=== PATIENT | male | born 1955 | race Caucasian/White ===

== ENCOUNTER 2018-10-12 06:41 | Inpatient (IN) | payer OTHER, SELFPAY ==
[2018-09-29 14:34] VITALS: BP 150/98; PULSE 76; RESP 16; TEMP 36.8; O2SAT 94; BMI 31.5
--- NOTE | 2018-09-29 15:38 | SDCEKG_ITS ---
Test Reason : Blood Pressure : / mmHG Vent. Rate : 071 BPM Atrial Rate : 071 BPM P-R Int : 234 ms QRS Dur : 106 ms QT Int : 386 ms P-R-T Axes : 051 016 039 degrees QTc Int : 419 ms Sinus rhythm with 1st degree A-V block Low voltage QRS Borderline ECG Confirmed by ERIC DURANT ([id number]), newspaper editor managing DANII TA ([id number]) on 10/05/2018 2:34:55 PM Referred By: Willi Mojica Confirmed By:ERIC DURANT
[2018-09-29 15:42] LABS: Absolute Lymphocyte Count 1.48 X10^3/ul (0.83-4.51); Absolute Neutrophil Count 4.9 X10^3/uL (2.0-7.7); Basophil# 0.06 X10^3/uL; Basophil% 0.8 % (0-1); Eosinophil# 0.56 X10^3/uL; Eosinophils% 7.5 % (0-5); Hematocrit 45.5 % (40-54); Hemoglobin 15.3 g/dl (13.0-16.5); Lymphocyte # 1.48 X10^3/ul (4.0); Lymphocyte % 19.8 % (19-41); Mean Corp Hgb Conc 33.6 g/gl (32-36); Mean Corpuscular Volume 98.1 fL (80-94); Mean Platelet Vol. 10.3 fl (6.2-12.0); Monocyte% 6.7 % (0-10); Neutrophil # 4.87 X10^3/uL (2.7-7.7); Neutrophil % 64.9 % (47-70); POSITIVE COUNT NO; POSITIVE DIFFERENTIAL NO; POSITIVE MORPHOLOGY NO; Platelet Count 259 K/mm3 (150-450); RBC Distribution Width CV 13.1 % (11.6-14.6); RBC Distribution Width SD 47.1 fl (35.1-43.9); Red Blood Count 4.64 M/mm3 (4.6-6.2); White Blood Count 7.5 K/mm3 (4.4-11.0)
[2018-09-29 16:10] LABS: Anion Gap 4 (5-15); BUN 14 mg/dL (7-18); BUN/Creat Ratio 14.2 RATIO (10-20); Calcium,Total 8.8 mg/dL (8.5-10.1); Chloride 104 mmol/L (98-107); Creatinine, Serum 0.99 mg/dL (0.70-1.30); EST Glomerular Filtration Rate 81 mL/min (>60); Est Glom Filt Rate - Afr Amer 98 mL/min (>60); Estimated Creatinine Clearance 76.81 ml/min; Glucose 85 mg/dL (74-106); Potassium 4.5 mmol/L (3.5-5.1); Sodium Level 138 mmol/L (136-145)
--- NOTE | 2018-10-07 11:49 | CASEMGMT ---
Call placed to patient to discuss discharge needs after upcoming surgery. Patient plans to return home with assistance from . Patient does not have outpatient physical therapy set up yet and voices that transportation will be an issue due to 's work schedule. Patient does not have a walker, has a cane. Does not have a shower seat or toilet riser. Patient has a bedroom and bathroom on the 1st level of his home. There is 1 step from the garage into the house. Informed patient that RN-CM will follow up after surgery. Michelle Snow LPN Clinical Support
[2018-10-12] VITALS (8 sets, daily range): BP systolic 111–147; BP diastolic 71–99; PULSE 44–80; RESP 14–18; TEMP 35.7–36.9; O2SAT 91–98; BMI 31.5
--- NOTE | 2018-10-12 | KNEE_PTH ---
PATIENT: ABDIEL ANDREWS LOC: [facility] U#:[id number] AGE/SX: 63/M [place] [facility] [place]: Dr. Willi Mojica DO : 1955 BED: 1 DIS: 10/14/2018 SPEC #: [id number] RECD: 10/12/18 13:47 STATUS: JULIA RECm #: [id number] SAIGE: 10/12/18 00:[address]: Willi Mojica DEPT: SURGICAL PATHOLOGY RECD BY: Jadon Albarran ENTERED: 10/12/18 13:47 SP TYPE: TOTAL KNEE OTHR DR: [facility] Tissues: Knee, NOS Procedures: Decalcification bone/plaque Surgery Specimen Level IV HEADER OPERATION: Total knee replacement PRE-OP DIAGNOSIS: Osteoarthritis right knee TISSUE SUBMITTED: Bone and soft tissue MICROSCOPIC DIAGNOSIS Bone and soft tissue, right knee, total knee replacement/resection: Pieces of bone with degenerative osteoarthritic changes. SJ:basilio 10/16/18 MICROSCOPIC DESCRIPTION Slides are reviewed. GROSS DESCRIPTION Received is one container designated bone and soft tissue right knee. The specimen consists of multiple fragments of kuo-yellow bone measuring in aggregate 11 x 8 x 4 cm. No soft tissue is identified. A number of bony fragments contain articular surfaces consistent with tibial plateau and femoral condyle and displaying prominent osteophyte formation, eburnation and bone erosion. Inspector Circuitry Negative sections are submitted in one cassette after decalcification. / IRENE:basilio 10/12/18 TC:5 CPT: 46270, 43506
[2018-10-12] MEDS: oxyCODONE HCl Cr 10 MG Tablet PO (07:25)
[2018-10-12] MEDS: Celecoxib 200 MG Capsule 400 MG PO (07:25)
[2018-10-12] MEDS: Acetaminophen 500 MG Tablet 1000 MG PO ×3 (07:25→21:10)
[2018-10-12] MEDS: Lactated Ringers 1,000 ML 999 ML IV (07:53)
[2018-10-12] MEDS: Cefazolin 2 GM in 0.9% Normal Saline 100 ML IV (09:56)
--- NOTE | 2018-10-12 11:15 | OP.PN_ITS ---
Immediate Post-Op Note Date of Procedure: 10/12/18 Primary Surgeon/Physician: Willi Mojica public improvement inspector: Hiro Ornelas Pre-Operative Diagnosis: OA right knee Post-Operative Diagnosis: same Surgery/Procedure Performed:: Right TKR Description of Surgical Findings:: see op note Estimated Blood Loss: 50cc Specimen's removed: none Type of Anesthesia:: Spinal ASA Class: ASA2 Mod Systematic Disease
--- NOTE | 2018-10-12 11:15 | OP.PN_ITS ---
Immediate Post-Op Note Date of Procedure: 10/12/18 Primary Surgeon/Physician: Willi Mojica line o scribe operator: Hiro Ornelas Pre-Operative Diagnosis: OA right knee Post-Operative Diagnosis: same Surgery/Procedure Performed:: Right TKR Description of Surgical Findings:: see op note Estimated Blood Loss: 50cc Specimen's removed: none Type of Anesthesia:: Spinal ASA Class: ASA2 Mod Systematic Disease - Admit VTE Documentation VTE Present on Admission: No VTE Mechan Device Prophylaxis: SCD's, Thigh High SUE Hose VTE Pharm Prophylaxis ordered?: Yes
--- NOTE | 2018-10-12 11:15 | PCM.OP.BLANK ---
Operative Report Date of Procedure: 10/12/18 Primary Surgeon/Physician: Willi Mojica cafeteria attendant: Hiro Ornelas PA-C cafeteria attendant: Pre-Operative Diagnosis: OA right knee Post-Operative Diagnosis: same Surgery/Procedure Performed: Right TKR Estimated Blood Loss: 50cc Specimen's Removed: bone Type of Anesthesia: spinal ASA Class: 2 Implants: [Striker size 6 CR femur, size 6 tibia, 38 mm patella, 9 mm poly (all components cemented) ] Indications: Patient has severe end-stage osteoarthritis diagnosed via x-rays in the knee. They have failed all forms of conservative measures including activity modification, injections, anti-inflammatories, use of assistive device. The patient has pain that affects on a daily basis and prevents him from doing things that they enjoyed. They have elected to undergo the above procedure. The risks of the procedure were discussed at length and their questions were answered. Procedure Description: The patient was greeted in the preoperative area. The [right ] knee was then marked with a surgical marker. Patient was then taken to or Suite 1. They were administered a dose of antibiotics as well as tranexamic acid. Once adequate anesthesia was obtained and airway was secured to placed in supine position on the operating room table. A well-padded tourniquet was placed on the affected extremity. Leg was then prepped and draped in the usual sterile fashion from the knee down. Ioban was used on the skin. Surgical timeout was then performed and confirmed with all present. Six-inch Esmarch was used to examine the limb and tourniquet was then inflated to 250 mmHg. A longitudinal incision was then planned and carried out in the anterior aspect of the knee. The dissection was then carried the length of the incision the extensor mechanism was identified. Standard medial parapatellar arthrotomy was then performed revealing severe eburnation of bone and periarticular osteophytes. There is complete loss of cartilage especially in the medial compartment with varus alignment. Anterior fat pad was removed for visualization purposes and the anterior medial aspect of the tibia was skeletonized for exposure to the knee. The knee was then flexed the patella was inverted. Opening reamer was then used in the femur approximately 1 cm anterior to the attachment of the PCL. The intramedullary valgus wand was then placed in the femur set at 5? of valgus. The distal femoral cutting jig was then applied to the femur with anticipated resection of approximately 8 mm. This was then made with a oscillating saw. The sizing guide was then placed referencing off the posterior condyles and also reference off the epicondylar axis. This was measured and the appropriate size 4-in-1 cutting jig was then applied to the distal femur. Anterior posterior cuts were made followed by the anterior and posterior chamfer cuts. These bony pieces and fragments were removed and placed on the back table. Posterior retractor was then utilized and the tibia was subluxed anteriorly. Extramedullary tibial alignment jig was then applied to the tibia referencing off the medial one third of the tibial tubercle the anterior tibial spine the middle aspect of the tibiotalar joint. Also reference off patient's [place] slope. The tibial cutting jig was then pinned with anticipated resection of 2 mm off of the deficient medial tibial condyle. This cut was made with the oscillating saw. Once this was complete a laminar awning spreader was utilized in both medial lateral meniscus were removed and a posterior capsular osteophytes were also removed. Posterior capsule release was performed in the posterior capsule as well as the geniculate arteries are treated with the aqua Romelia. The tibia was incised and the appropriate sized tibial tray was then pinned. The femoral trial was then placed and the knee was trialed. Full flexion-extension were easily achieved. The knee seemed to balance quite nicely. Any remaining osteophytes were removed at this time. Once this was complete the patella was everted and the Nilam patella reaming device was then utilized the patella was then placed in the appropriate jig and reamer was then used to remove approximately 9 mm of the undersurface of the patella. A soft tissue remaining was in the way was removed and patella trial was then placed listed maintain excellent tracking using the no thumbs technique. The tibial tray at this point was punched to accommodate the fins of the final implant. At this point cement was mixed on the back table. The trial components were removed and the knee was copiously irrigated. Did use a cocktail of injection for postoperative pain control. The final components were then cemented in the standard fashion and excess cement was removed with cement removal tools and patellar clamp is placed in the patella. As the cement had cured in full extension tourniquet was deflated and hemostasis was perfect with Bovie cautery as well as the aqua Manus. Needle is once again trialed with different size polyethylenes to ensure the full range of motion was achieved as well as excellent balancing ligamentously was achieved. At this point the knee was copiously irrigated. Final implant was then inserted locking mechanism was engaged and confirmed to be locked. The arthrotomy was then closed with #1 Vicryl aggravate type fashion interrupted. Subcutaneous tissue was closed with 0 Vicryl and surgical leon were placed in the skin. A occlusive silver impregnated dressing was then applied followed by well-padded sterile dressing secured with an Giovanni wrap. The patient was taken to the PACU in stable condition. No complications known at this time. Postoperatively we will maintain standard total knee postoperative protocol. The use of the physician marketing administrative assistant was integral during this procedure. They assisted with positioning placement of the tourniquet retracting closure and placement of the dressing. The procedure would have been much more difficult without their expertise and assistance
--- NOTE | 2018-10-12 11:19 | OP.PCM_ITS ---
Operative Report Date of Procedure: 10/12/18 Primary Surgeon/Physician: Willi Mojica operations business partner: Hiro Ornelas PA-C operations business partner: Pre-Operative Diagnosis: OA right knee Post-Operative Diagnosis: same Surgery/Procedure Performed: Right TKR Estimated Blood Loss: 50cc Specimen's Removed: bone Type of Anesthesia: spinal ASA Class: 2 Implants: [Striker size 6 CR femur, size 6 tibia, 38 mm patella, 9 mm poly (all components cemented) ] Indications: Patient has severe end-stage osteoarthritis diagnosed via x-rays in the knee. They have failed all forms of conservative measures including activity modification, injections, anti-inflammatories, use of assistive device. The patient has pain that affects on a daily basis and prevents him from doing things that they enjoyed. They have elected to undergo the above procedure. The risks of the procedure were discussed at length and their questions were answered. Procedure Description: The patient was greeted in the preoperative area. The [right ] knee was then marked with a surgical marker. Patient was then taken to or Suite 1. They were administered a dose of antibiotics as well as tranexamic acid. Once adequate anesthesia was obtained and airway was secured to placed in supine position on the operating room table. A well-padded tourniquet was placed on the affected extremity. Leg was then prepped and draped in the usual sterile fashion from the knee down. Ioban was used on the skin. Surgical timeout was then performed and confirmed with all present. Six-inch Esmarch was used to examine the limb and tourniquet was then inflated to 250 mmHg. A longitudinal incision was then planned and carried out in the anterior aspect of the knee. The dissection was then carried the length of the incision the extensor mechanism was identified. Standard medial parapatellar arthrotomy was then performed revealing severe eburnation of bone and periarticular osteophytes. There is complete loss of cartilage especially in the medial compartment with varus alignment. Anterior fat pad was removed for visualization purposes and the anterior medial aspect of the tibia was skeletonized for exposure to the knee. The knee was then flexed the patella was inverted. Opening reamer was then used in the femur approximately 1 cm anterior to the attachment of the PCL. The intramedullary valgus wand was then placed in the femur set at 5? of valgus. The distal femoral cutting jig was then applied to the femur with anticipated resection of approximately 8 mm. This was then made with a oscillating saw. The sizing guide was then placed referencing off the posterior condyles and also reference off the epicondylar axis. This was measured and the appropriate size 4-in-1 cutting jig was then applied to the distal femur. Anterior posterior cuts were made followed by the anterior and posterior chamfer cuts. These bony pieces and fragments were removed and placed on the back table. Posterior retractor was then utilized and the tibia was subluxed anteriorly. Extramedullary tibial alignment jig was then applied to the tibia referencing off the medial one third of the tibial tubercle the anterior tibial spine the middle aspect of the tibiotalar joint. Also reference off patient's [place] slope. The tibial cutting jig was then pinned with anticipated resection of 2 mm off of the deficient medial tibial condyle. This cut was made with the oscillating saw. Once this was complete a laminar fire observer was utilized in both medial lateral meniscus were removed and a posterior capsular osteophytes were also removed. Posterior capsule release was performed in the posterior capsule as well as the geniculate arteries are treated with the aqua Romelia. The tibia was incised and the appropriate sized tibial tray was then pinned. The femoral trial was then placed and the knee was trialed. Full flexion-extension were easily achieved. The knee seemed to balance quite nicely. Any remaining osteophytes were removed at this time. O nce this was complete the patella was everted and the Nilam patella reaming device was then utilized the patella was then placed in the appropriate jig and reamer was then used to remove approximately 9 mm of the undersurface of the patella. A soft tissue remaining was in the way was removed and patella trial was then placed listed maintain excellent tracking using the no thumbs technique. The tibial tray at this point was punched to accommodate the fins of the final implant. At this point cement was mixed on the back table. The trial components were removed and the knee was copiously irrigated. Did use a cocktail of injection for postoperative pain control. The final components were then cemented in the standard fashion and excess cement was removed with cement removal tools and p atellar clamp is placed in the patella. As the cement had cured in full extension tourniquet was deflated and hemostasis was perfect with Bovie cautery as well as the aqua Manus. Needle is once again trialed with different size polyethylenes to ensure the full range of motion was achieved as well as excellent balancing ligamentously was achieved. At this point the knee was copiously irrigated. Final implant was then inserted locking mechanism was engaged and confirmed to be locked. The arthrotomy was then closed with #1 Vicryl aggravate type fashion interrupted. Subcutaneous tissue was closed with 0 Vicryl and surgical leon were placed in the skin. A occlusive silver impregnated dressing was then applied followed by well-padded sterile dressing secured with an Giovanni wrap. The patient was taken to the PACU in stable condition. No complications known at this time. Postoperatively we will maintain standard total knee postoperative protocol. The use of the physician perinatal breastfeeding assistant was integral during this procedure. They assisted with positioning placement of the tourniquet retracting closure and placement of the dressing. The procedure would have been much more difficult without their expertise and assistance
[2018-10-12 12:12] LABS: Hematocrit 41.2 % (40-54); Mean Corpuscular Volume 97.2 fL (80-94); Mean Platelet Vol. 10.1 fl (6.2-12.0); Platelet Count 212 K/mm3 (150-450); RBC Distribution Width SD 45.9 fl (35.1-43.9); Red Blood Count 4.24 M/mm3 (4.6-6.2); White Blood Count 5.8 K/mm3 (4.4-11.0)
[2018-10-12 12:13] LABS: Scan Indicated on CBC? Y/N NO
[2018-10-12] MEDS: Scopolamine 1mg/72hr Patch 1 PATCH TD (12:13)
[2018-10-12 12:25] LABS: Anion Gap 5 (5-15); BUN 14 mg/dL (7-18); BUN/Creat Ratio 13.6 RATIO (10-20); Chloride 108 mmol/L (98-107); Creatinine, Serum 1.03 mg/dL (0.70-1.30); EST Glomerular Filtration Rate 77 mL/min (>60); Est Glom Filt Rate - Afr Amer 93 mL/min (>60); Estimated Creatinine Clearance 73.83 ml/min; Glucose 106 mg/dL (74-106); Potassium 4.2 mmol/L (3.5-5.1); Sodium Level 141 mmol/L (136-145)
[2018-10-12] MEDS: Gabapentin 800 MG Tablet PO ×2 (13:11→17:06)
[2018-10-12] MEDS: oxyCODONE 5 MG Tablet PO (13:13)
[2018-10-12] MEDS: Ketorolac 15 MG/ML Vial IV (15:13)
[2018-10-12] MEDS: Aspirin 325 MG Tablet PO (17:06)
[2018-10-12] MEDS: Folic Acid 1 MG Tablet 0.5 MG PO (17:06)
[2018-10-12] MEDS: Cefazolin 1 GM/50 ML BAG IV (17:07)
[2018-10-12] MEDS: traMADol 50 MG Tablet 100 MG PO (17:12)
[2018-10-12] MEDS: Lactated Ringers 1,000 ML 125 ML IV (20:16)
[2018-10-12] MEDS: Senna/Docusate Sodium 1 Tablet 2 TABLET PO (21:09)
[2018-10-12] MEDS: Amitriptyline 100 MG Tablet PO (21:11)
[2018-10-12] MEDS: Amitriptyline 25 MG Tablet 50 MG PO (21:11)
[2018-10-12] MEDS: Atorvastatin Calcium 40 MG Tablet PO (21:11)
[2018-10-13] MEDS: Cefazolin 1 GM/50 ML BAG IV (03:05)
[2018-10-13] MEDS: Lactated Ringers 1,000 ML 125 ML IV (03:07)
[2018-10-13 03:10] VITALS: BP 132/89; PULSE 78; RESP 16; TEMP 37; O2SAT 93
[2018-10-13] MEDS: oxyCODONE 5 MG Tablet PO ×5 (03:14→23:26)
[2018-10-13] MEDS: Acetaminophen 500 MG Tablet 1000 MG PO ×3 (06:04→21:28)
[2018-10-13 06:54] LABS: Hematocrit 38.6 % (40-54); Hemoglobin 13.4 g/dl (13.0-16.5); Mean Corp Hgb Conc 34.7 g/gl (32-36); Mean Corpuscular Hgb 33.8 pg (27.0-32.0); Mean Corpuscular Volume 97.2 fL (80-94); Mean Platelet Vol. 10.7 fl (6.2-12.0); Platelet Count 205 K/mm3 (150-450); RBC Distribution Width CV 12.6 % (11.6-14.6); Red Blood Count 3.97 M/mm3 (4.6-6.2); White Blood Count 7.7 K/mm3 (4.4-11.0)
[2018-10-13 07:00] LABS: Scan Indicated on CBC? Y/N NO
[2018-10-13 07:06] LABS: Anion Gap 9 (5-15); BUN 13 mg/dL (7-18); BUN/Creat Ratio 13.1 RATIO (10-20); Chloride 105 mmol/L (98-107); EST Glomerular Filtration Rate 80 mL/min (>60); Est Glom Filt Rate - Afr Amer 97 mL/min (>60); Estimated Creatinine Clearance 76.04 ml/min; Glucose 102 mg/dL (74-106); Potassium 3.8 mmol/L (3.5-5.1); Sodium Level 142 mmol/L (136-145)
--- NOTE | 2018-10-13 07:35 | PCM.PN.ORT ---
Subjective: Patient sitting at bedside eating breakfast. Patient states pain is well managed. Denies chest pain, shortness of breath, calf pain, nausea vomiting. States he is ready for discharge home today after p.m. therapy Objective: Dressings clean dry intact. Vital sign labs all within normal limits. Patient is afebrile neurovascular is otherwise intact. Negative signs and symptoms of DVT. - Physical Exam General: Alert, Oriented x3, Cooperative HEENT: PERRLA Oral: Moist Mucosa Neurological: Cranial nerves II-XII grossly intact Psych/Mental Status: Normal Affect, Alert and oriented to time, place, person, mood and affect Vital Signs Temp Pulse Resp BP Pulse Ox 98.6 F 78 16 132/89 H 93 10/13/18 03:10 10/13/18 03:10 10/13/18 03:10 10/13/18 03:10 10/13/18 03:10 Oxygen Delivery Method Room Air Weight: 99.79 kg Body Mass Index (BMI) 31.5 Intake and Output for Last 24 Hours 10/11/18 10/12/18 10/13/18 23:59 23:59 23:59 Intake Total 2344 / 2344 2210 / 2210 Output Total 800 / 800 Balance 1544 / 1544 2210 / 2210 Laboratory Tests Past 24 Hrs 10/12/18 10/12/18 10/13/18 12:00 12:00 05:10 WBC 5.8 7.7 RBC 4.24 L 3.97 L Hgb 14.0 13.4 Hct 41.2 38.6 L MCV 97.2 H 97.2 H MCH 33.0 H 33.8 H MCHC 34.0 34.7 RDW 13.0 12.6 RDW Differential 45.9 H 44.0 H Plt Count 212 205 MPV 10.1 10.7 Sodium 141 Potassium 4.2 Chloride 108 H Carbon Dioxide 28.0 Anion Gap 5 BUN 14 Creatinine 1.03 Estim Creat Clear Calc 73.83 Est GFR (MDRD) Af Amer 93 Est GFR (MDRD) Non-Af 77 BUN/Creatinine Ratio 13.6 Glucose 106 Calcium 8.0 L 10/13/18 05:10 WBC RBC Hgb Hct MCV MCH MCHC RDW RDW Differential Plt Count MPV Sodium 142 Potassium 3.8 Chloride 105 Carbon Dioxide 28.0 Anion Gap 9 BUN 13 Creatinine 1.00 Estim Creat Clear Calc 76.04 Est GFR (MDRD) Af Amer 97 Est GFR (MDRD) Non-Af 80 BUN/Creatinine Ratio 13.1 Glucose 102 Calcium 8.0 L Medical Necessity - Tobacco Use Smoking Status: Former smoker Assessment/Plan Status post right total knee arthroplasty Plan 1. Continue all pain medications as prescribed 2. Begin physical therapy today with weightbearing as tolerated with walker. 3. Aspirin 325 mg 1 p.o. every 12 hours times 30 days for postop DVT prophylaxis 4. Encourage incentive spirometry 5. Follow-up as scheduled with Dr. Mojica, see pink sheet for dates and times 6. Patient will continue with outpatient physical therapy at [facility] [place] 7. Discharge home today after p.m. therapy.
--- NOTE | 2018-10-13 07:43 | PCM.DC.TKR ---
Discharge Diet: No Restrictions Discharge Activity: May Not Drive, May Shower, Use Walker May shower in (days): 3 Ice area for (Minutes): 20 - each hour while awake. Weight Bearing Status: Weight bearing as tolerated Elevate: Operative Extremity Additional Activity Instructions:: Wear elastic stockings for 2 weeks after your surgery. Call your doctor if your incision/area has: Continuous Slow Oozing, Sudden Increased Bleeding, Increased Pain/ Swelling, Increased Redness, Foul Smelling Discharge Call your doctor if you observe: Fever of 101 or Higher, Coldness, Increased Pain - in extremity, Numbness or Tingling, Change in Color, Calf discomfort, Uncontrolled pain Change Dressing in (Days):: 0 - and daily as needed. Remove Dressing in (days):: 8 Cleanse incision/area with: Soap & Water Allergies/Adverse Reactions: Allergies No Known Allergies Allergy (Verified 10/12/18 07:10) Medications to take at Discharge Amitriptyline HCl [Elavil] 150 mg PO QHS 09/29/18 Atorvastatin Calcium [Lipitor] 40 mg PO QHS 09/29/18 Celecoxib [Celebrex] 200 mg PO DAILY 09/29/18 Cholecalciferol (VIT D3) [Vitamin D3] 1,000 unit PO DAILY 09/29/18 Cyanocobalamin (Vitamin B-12) [Vitamin B-12] 1,000 mcg PO DAILY 09/29/18 Fexofenadine HCl [Billie Allergy] 180 mg PO DAILY 09/29/18 Fluticasone 0.05% [Flonase Nasal [place]] 2 spray NASAL DAILY 09/29/18 Folic Acid 0.4 mg PO BID 09/29/18 Gabapentin [Neurontin] 800 mg PO TIDCM 09/29/18 Ginkgo Biloba 120 mg PO TID 09/29/18 Glucosamine/MSM/Chondroitin A [Glucosamine Chondroit MSM Tab] 1 each PO BID 09/29/18 Multivitamin [Multiple Vitamins] 1 each PO DAILY 09/29/18 Pantoprazole Sodium [Protonix] 40 mg PO DAILY 09/29/18 Potassium 99 mg PO TID 09/29/18 Acetaminophen [Tylenol] 1,000 mg PO Q8 #90 tab 10/13/18 Aspirin 325 mg PO BIDCM #60 tab 10/13/18 Oxycodone [Oxyir] 5 - 10 mg PO Q4H PRN PRN 7 Days #96 tab 10/13/18 The following prescriptions were given: Oxycodone [Oxyir] 5 - 10 mg PO Q4H PRN PRN 7 Days #96 tab PRN Reason: Mod-Severe Pain (-09/02) Acetaminophen [Tylenol] 1,000 mg PO Q8 #90 tab Aspirin 325 mg PO BIDCM #60 tab [facility] Care Physician: [facility] [Primary Care Provider] - Test Results: Test results from this visit will be discussed in further detail at your follow-up appointment, if applicable. Please Follow Up With: Willi Mojica, DO When: see pink sheet
[2018-10-13] MEDS: Senna/Docusate Sodium 1 Tablet 2 TABLET PO ×2 (07:47→21:29)
[2018-10-13] MEDS: Loratadine 10 MG Tablet PO (07:48)
[2018-10-13] MEDS: Aspirin 325 MG Tablet PO ×2 (07:48→18:52)
[2018-10-13] MEDS: Cyanocobalamin 500 MCG Tablet 1000 MCG PO (07:48)
[2018-10-13] MEDS: Gabapentin 800 MG Tablet PO ×3 (07:48→18:53)
[2018-10-13] MEDS: Pantoprazole Sodium 40 MG Tablet PO (07:48)
[2018-10-13] MEDS: Folic Acid 1 MG Tablet 0.5 MG PO ×2 (07:49→18:53)
[2018-10-13] MEDS: Multivitamins,Therapeutic Tablet 1 TABLET PO (07:50)
[2018-10-13] MEDS: Fluticasone 0.05% 1 SPRAY NASAL.SRY 2 SPRAY NASAL (07:51)
[2018-10-13 07:56] VITALS: BP 131/80; PULSE 78; RESP 18; TEMP 36.8; O2SAT 95
[2018-10-13] MEDS: Ketorolac 15 MG/ML Vial IV ×2 (13:45→21:29)
--- NOTE | 2018-10-13 14:30 | CASEMGMT ---
Social Work Unit - MS3 Referral Date: 10-13-2018 Referral source: MARCIAL AGUILERA Date of Assessment: 10-13-2018 Reason for Consult: financial concerns and advanced directives Admitting Diagnosis: right total knee replacement Informant: patient and Rose Marie Personal Status Present during assessment: patient and then later joined conversation. Living Arrangements: with of 3 years Education: able to read and write, though patient reports reading does take patient some time, normally able to understand what is read however. Employment: current unemployed. Lost job in July. Currently receiving unemployment and approved until the end of October. 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 : [employer], served for 11 years, goes to the [employer] in [place] Family Dynamics/Relationships: patient to of 3 years. Patient reports he and his argue a lot. Patient denies that he has ever hit his but admits to being irritable and sometimes yells a lot. Patient talkative during private conversation about first , who patient reports to have loved deeply but that was not the best and has regrets around this time of patient's life. Supports: Rose Marie. ADLs: Normally independent but does have pain issues and neuropathy. Medical History and Current Status: Patient just had a knee replacement and reports hope that this will help patient move better and be able to get back to work. 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 Substance Abuse History and Current Pattern of Use Alcohol: Denies any abuse or dependence issues. Patient reports to have a glass of wine occasionally and reports this is not true, patient does not drink. Tobacco: former tobacco smoker Prescriptions Drugs: No reported abuse of prescription medications, though is reports to be on several controlled medications such as Adderall and Tramadol. 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 Patient denies use of heroin in years. Other Drugs: no other illicit drug use reported or endorsed at this time. Mental Health History and Current Status Diagnoses: ADHD. Patient denies official diagnoses of depression, anxiety, bipolar disorder or PTSD. Patient reports however that does often have racing thoughts, has had thought of suicide in the past, and sometimes feels as though having difficulty feeling comfortable being around other people. Stressors: not currently working, reports frustration with having to use unemployment right now; financial worries SI or HI: No thoughts, plans, intent, or action for homicide. Patient endorses that more than 3 years ago (before current marriage) patient did have suicidal thoughts, tried to strangle self with own hands. Patient reports was not successful as patient was using his own hands. Patient denies other past attempts, denies any thoughts, plans, intent currently or in recent months. Patient future oriented, wants to either get back to work or is even contemplating disability. Patient endorse hope in the future, and hopeful that this surgery will provide some better quality to patient?s life. Treatment History: Patient reports [facility] and reports this has been helpful. Would be open to talking to someone again, and would prefer to use the [facility] as this is less expensive for patient. Patient reports to know how to access services if chooses to utilize in the future. Medications: Reports to be on Adderall. Noted in record patient on Elavil; an antidepressant. Patient report additionally on Tramadol and Gabapentin for medical related issues. Prescribed by: Shun Mejia through [facility] prescribes the Adderall and Tramadol. Cognition: Patient alert and oriented to person, place, time, situation. Patient got mixed up a few times regarding details of things, such as home medication regiment and frequency of use. Patient rambling slightly, though easily redirectable. Patient endorses that has racing thoughts and at time of social work visit racing thoughts are a struggle. Motor Activity: Patient seeming to be in pain during social work visit, grunting intermittently, shifting in bed trying to get comfortable. Patient writhing around in the bed, fidgety and twitching extremities. Resources JFS: Not currently connected, educated to food assistance and if patient if off work may want to explore this option. CAofW/M: Will provide brochure on this programming. MOW: Educated to option, will provide information. People to People: Will provide information. HHC: Patient reports may have HHC at discharge for therapy. Transportation: Normally drives and can assist when not working. Other: Active with the [employer] for medical; also, has used the local [facility] to get help with home needs.; Will provide local meal and food pantries, [place] street card with comprehensive list of social service agencies. Will provide 24-hour mental health crisis line, list of local counselors and [facility] program in case patient decides to pursue Patient?s Identified Concerns: Patient reports concern over not working and financial constraints. Patient does have some income coming in however, and does work, but patient is worried as unemployment is set to run out at the end of October. Encouraged patient to investigate seeing whether qualifies for extension of unemployment. reports that currently the home does not have hot water or a refrigerator. The Refrigerator is being delivered on 10-14-18. reports can get the water heater but needs patient to assist with this task (though no hot water, there is running water). Patient reports to have an interest in advanced directives, wants to read over but not quite ready to complete. During private conversation patient reflective about first marriage, hard times growing up, drug usage at an early age, and time in . During conversation with patient and together, it came out that patient is to be on Adderall daily, takes several times a day. Patient has not had this medicine since hospitalization. Concern voiced about patient just stopping this medicine. This press writer looked at medication list and did not appreciate this medicine on current medication list. Intervention: This press writer talked to MARCIAL Parks and informed that patient and endorse patient being on Tramadol and Adderall daily at home, prescribed by Shun Mejia. Asked RN to follow up with patient//doctor about whether this may be impacting current functional status/motor activity and whether needs to be restarted in the hospital. Educated to some resources that may help alleviate some financial stressors. Introduced to topic of advanced directives based on patient's expressed interest. Supportive listening, reflection, and encouragement provided patient today. Allowed patient to ventilate thoughts, feelings, concerns. Patient expresses appreciation for support provided today. Plan: Will be meeting with patient again on 10-14-18 to provide some resources for home going. -JASMINA Monroy, ROSIE
[2018-10-13 15:06] VITALS: BP 157/92; PULSE 85; RESP 18; TEMP 37.2; O2SAT 98
--- NOTE | 2018-10-13 15:40 | CASEMGMT ---
MARCIAL AGUILERA INITIAL ASSESSMENT D/C PLAN: Home with HHC: PT/OT. Face to Face with patient for initial transition planning/care coordination assessment. MARCIAL AGUILERA introduced self and role at [facility]. Pt sitting up on edge of bed. Pt with intermittent jerking and twitching, stating his knee is very painful. MARCIAL Parks, notified of pt c/o pain. MARCIAL AGUILERA offered to come back later to do assessment, but pt stated he was okay with answering questions now. Care providers, pharmacy, and demographics verified. PCP: -Dr. Shun Mejia @ [facility]. -Dr. Cazares @ [facility]. [facility]: PACT 10. Nurse MARCIAL Anders. . Preferred Pharmacy: [facility], [facility] Retail on day of d/c only. [facility]. Insurance: Cigna primary (confirmed with C[employer] and Registration made aware to change in pt's chart). Copy of Cigna card made and sent to registration. Cigna insurance card returned to . Has VA Benefits. Call placed to [facility]. Pt is not service connected. Has benefits. They stated anything is covered other than dental. Prescription Benefit: Yes Living Will/HPOA: Does not have either. Is interested in further information and would like to talk to NATHANIEL. Adv Directive information packet provided. Nay ARMSTRONG notified of referral. LNOK: . Living Arrangements: Pt lives with in a one-story home. Pt states 4 steps to enter from the back of the home, 1 step to enter in the front. States was independent with ADL's/self care prior to admission/surgery. States able to assist with care on return to home. Transportation: able to provide transportation after return to home on weekends and in the evening. Pt voices concern with transportation d/t works full-time. Pt provided with [facility] transportation info sheet and made aware of their services to [facility] providers/services. DME: Pt states has a cane and hand-held shower. Has a tub bath. No shower. States needs a tub bench and walker. Denies preference of DME company. Script obtained for walker and faxed to [employer]. Kassi @ [employer] aware pt discharging tomorrow 10-14-18 and states they will deliver it to pt's room tomorrow. MARCIAL Maxwell CM, aware of need for tub bench and states will obtain script tomorrow. HHC: Pt wishes to return home w/[facility] for therapy. and pt voice no preference of [facility] agency. Call placed to [facility] with [facility] referral for [facility] PT and OT. Made aware plans are for pt to discharge tomorrow 10/14/18 and start of care will need to be Friday10-16-18. Awaiting [facility] agency acceptance. [facility]: Intake ID # [id number] PH: Fax: Pt states he does have financial concerns d/t he was laid off about 4 months ago. States he is interested in talking with SW about this in addition to AD. Tee SW made aware/referral for financial concerns. Pt and state they have no further concerns/questions/needs at this time. They were both made aware to contact CM if they do. CM to follow for any further discharge planning needs that may arise. Peter SALINAS RN, CM
[2018-10-13] MEDS: Amitriptyline 100 MG Tablet PO (21:28)
[2018-10-13] MEDS: 0.9% NaCl Peripheral Flush Adult/Peds IV (21:28)
[2018-10-13] MEDS: Atorvastatin Calcium 40 MG Tablet PO (21:28)
[2018-10-13] MEDS: Amitriptyline 25 MG Tablet 50 MG PO (21:28)
[2018-10-13 21:37] VITALS: BP 147/81; PULSE 88; RESP 18; TEMP 37.4; O2SAT 94
[2018-10-14] MEDS: Acetaminophen 500 MG Tablet 1000 MG PO (06:03)
[2018-10-14] MEDS: oxyCODONE 5 MG Tablet PO ×2 (06:03→10:22)
[2018-10-14] MEDS: 0.9% NaCl Peripheral Flush Adult/Peds IV (06:03)
[2018-10-14 06:22] VITALS: BP 117/68; PULSE 60; RESP 18; TEMP 36.1; O2SAT 95
--- NOTE | 2018-10-14 07:09 | PN.ORTHO_ITS ---
Subjective: Patient sitting at bedside. Patient states he is pain is well managed. After I talked to him yesterday morning he started having increasing pain, and requested that he stay 1 more day. Patient feels he is ready to be discharged home today, he denies chest pain, shortness of breath, calf pain, nausea vomiting. Objective: Dressings clean dry intact, negative signs and symptoms of DVT. Vital signs are within normal limits. Patient is afebrile neurovascular is otherwise intact. - Physical Exam General: Alert, Oriented x3, Cooperative Psych/Mental Status: Alert and oriented to time, place, person, mood and affect Vital Signs Temp Pulse Resp BP Pulse Ox 97 F L 60 18 117/68 95 10/14/18 06:22 10/14/18 06:22 10/14/18 06:22 10/14/18 06:22 10/14/18 06:22 Oxygen Delivery Method Room Air Weight: 99.79 kg Body Mass Index (BMI) 31.5 Intake and Output for Last 24 Hours 10/12/18 10/13/18 10/14/18 23:59 23:59 23:59 Intake Total 2344 / 2344 2990 / 2990 Output Total 800 / 800 Balance 1544 / 1544 2990 / 2990 Medical Necessity - Tobacco Use Smoking Status: Former smoker Assessment/Plan Status post right total knee arthroplasty Plan 1. Continue all pain medications as prescribed 2. Begin physical therapy today with weightbearing as tolerated with walker. 3. Aspirin 325 mg 1 p.o. every 12 hours times 30 days for postop DVT prophylaxis 4. Encourage incentive spirometry 5. Follow-up as scheduled with Dr. Mojica, see pink sheet for dates and times 6. Patient will continue with outpatient physical therapy at [facility] 7. Discharge home today
[2018-10-14] MEDS: Folic Acid 1 MG Tablet 0.5 MG PO (07:52)
[2018-10-14] MEDS: Gabapentin 800 MG Tablet PO ×2 (07:52→12:04)
[2018-10-14] MEDS: Aspirin 325 MG Tablet PO (07:52)
[2018-10-14] MEDS: Multivitamins,Therapeutic Tablet 1 TABLET PO (07:52)
[2018-10-14 07:56] VITALS: BP 112/62; PULSE 89; RESP 18; TEMP 36.9; O2SAT 93
[2018-10-14] MEDS: Loratadine 10 MG Tablet PO (10:18)
[2018-10-14] MEDS: Pantoprazole Sodium 40 MG Tablet PO (10:19)
[2018-10-14] MEDS: Senna/Docusate Sodium 1 Tablet 2 TABLET PO (10:19)
[2018-10-14] MEDS: Fluticasone 0.05% 1 SPRAY NASAL.SRY 2 SPRAY NASAL (10:19)
[2018-10-14] MEDS: Cyanocobalamin 500 MCG Tablet 1000 MCG PO (10:20)
--- NOTE | 2018-10-14 10:47 | PCA ---
Patient call light was going off. I went in to see what he needed. He wanted to go to bed. So i took his personal alarm off and assisted to get his slippers on, patient went to get up out of chair and the gait belt fell to the floor. while holding onto the walker told the patient to stand there and ill undue it to get it off around his legs. The patient didnt listen and tried to take a step forward over the gaitbelt. Then he lost balance while getting mad and almost fell backwards while i caught him so he didnt fall to ground and assisted him into chair.
--- NOTE | 2018-10-14 11:23 | CASEMGMT ---
Addendum entered by Brittany Puri 10/14/18 13:52: MARCIAL AGUILERA to room. Pt up to bathroom with TRUCK ENGINE TECHNICIAN. in room and made aware [facility] able to accept pt, Start of care with therapy will be Friday10-16-18, and nurse to visit Friday. voices appreciation. Original Note: MARCIAL AGUILERA NOTE: Call placed to [facility] re: referral and status of C agency acceptance. [facility] states [facility] has accepted pt. Call placed to [facility] @ [phone]. Confirmation received from [facility] that they are able to accept pt, with start of care being Friday10-16-18. They state PT will be out to pt's home on Friday and nurse will be out to see him on Friday. [facility]: PH: [phone] Peter SALINAS RN, CM
[2018-10-14 12:18] VITALS: BP 132/82; PULSE 84; RESP 18; TEMP 36.6; O2SAT 95
--- NOTE | 2018-10-14 12:19 | CASEMGMT ---
Social Work Unit - MS3 Reason for visit: follow up from initial visit occurring 10-13-18 regarding financial and advanced directives Summary of Visit: Gathered resources for patient's home going needs. Presented to patient's room today. Patient laying in bed, and reports that is on the way and will be taking patient home. Patient reporting plan for home health care initially. Provided patient with some community resources for [facility] (originally thought patient lived in [place] but found that patient is in [facility]). Reviewed some of the resources, as well as a coping technique patient can try at home when feeling stressed out, racing and/or ruminating thoughts. Assessment: Patient reports intent to go home today and reports to feel that will be safe to go home. Patient was on the phone with when social service liaison entered, and upon hanging up patient expressed some irritation with for not listening to directions patient was trying to provide. Patient reports that feels things will go fine at home with the assisting. Patient denies other needs. Reports intent to work medical team for outpatient care needs/recommendations, adhere to medication regiment. Patient alert, oriented, cooperative and pleasant with this writer technical publications, related some conversation that had with social service liaison yesterday (as far as reconnecting with mental health at the [place] and intent to start talking to someone [facility] with [facility]). Patient still restless today but reports to feel that will be safe going home with and HHC support. Patient future oriented to stay with therapy, figure out financial issues (returning to work versus disability), and also reconnecting with [facility] through the [facility]. Patient reports understanding of resource information offered today. Patient denies any other needs for home going and expresses thanks for time and resources provided to patient. Intervention: Community resources provided to patient including Food pantry list, transportation resources for [facility], home delivered meals for [facility], Aging resource Center in [place], Mental health providers locally, 24 hour crisis number and a crisis number specifically for veterans, [facility] program brochure, general resource list of helping social service agencies, and then advanced directives and contact number for [facility] social media sr strategy manager should patient decide to complete down the road. Plan: Home with , MARCIAL AGUILERA setting up HHC for patient, community resource and advanced directive information given. No other needs requested or indicated. -JASMINA Ventura, LUNCHROOM SUPERVISOR
--- NOTE | 2018-10-14 12:24 | NURSING ---
PT UNSTEADY AT TIMES AND IMPULSIVE- TALKED TO ABOUT SAFETY AT HOME - PT REFUSING TO STAY ANOTHER DAY AND INPT REHAB - WILL HAVE HOME THERAPY ON FRIDAY
== END 2018-10-14 12:45 | disposition home or self-care (01) | DRG 470 ==
PROVIDERS: Admitting Provider Orthopaedic Surgery; Referring Provider Orthopaedic Surgery; Visit Provider Orthopaedic Surgery
PROC: 0SRC0J9 Replacement of Right Knee Joint with Synthetic Substitute, Cemented, Open Approach (ICD-10-PCS; CPT 27447; principal; 2018-10-12 08:20)
DX: M17.11 Unilateral primary osteoarthritis, right knee (principal); Z23 Encounter for immunization
CPT/HCPCS: 36415; 80048; 85025; 85027; 87077; 87081; 88305; 88311; 93005; 97110; 97161; 97165; 97530; C1776; J7120; 90686; A4216

== ENCOUNTER 2018-10-22 17:10 | Observation (INO) | payer OTHER, SELFPAY ==
[2018-10-12 12:43] VITALS: BMI 31.5
[2018-10-22 17:11] VITALS: BP 113/97; PULSE 87; RESP 22; TEMP 35.8; O2SAT 99; BMI 28.5
--- NOTE | 2018-10-22 17:40 | RAD_ITS ---
STUDY: X-RAY - RIGHT KNEE REASON FOR EXAM: Male, 63 years old. Recent total knee surgery. Severe pain and swelling. TECHNIQUE: 2 view(s) of the knee. COMPARISON: None. FINDINGS: There is a total knee replacement. The prosthetic components are intact and articulate normally with each other. There is no evidence of loosening from the underlying bone. There is no evidence of osseous fracture or destructive osseous pathology. There is swelling in the anterior soft tissues with midline skin clips. Question suprapatellar joint effusion. The soft tissue structures are unremarkable. RAD/Knee 1 or 2 Views IMPRESSION: 1. Right total knee arthroplasty. There is no acute fracture or dislocation. 2. Anterior soft tissue swelling with questionable suprapatellar joint effusion. Electronically Signed: Beni Amezcua DO at 19:04 EST Tel [phone], Service support ,
[2018-10-22] MEDS: HYDROmorphone 1 MG/ML Syringe IV ×2 (18:02→18:27)
[2018-10-22] MEDS: Ondansetron 4 MG/2 ML Vial IV (18:02)
[2018-10-22 18:13] LABS: Absolute Lymphocyte Count 1.28 X10^3/ul (0.83-4.51); Absolute Neutrophil Count 7.9 X10^3/uL (2.0-7.7); Basophil# 0.03 X10^3/uL; Basophil% 0.3 % (0-1); Eosinophil# 0.19 X10^3/uL; Eosinophils% 1.8 % (0-5); Hematocrit 40.8 % (40-54); Hemoglobin 13.9 g/dl (13.0-16.5); Lymphocyte # 1.28 X10^3/ul (4.0); Lymphocyte % 11.9 % (19-41); Mean Corp Hgb Conc 34.1 g/gl (32-36); Mean Corpuscular Hgb 32.9 pg (27.0-32.0); Mean Corpuscular Volume 96.7 fL (80-94); Mean Platelet Vol. 9.2 fl (6.2-12.0); Monocyte# 1.29 X10^3/uL; Neutrophil # 7.92 X10^3/uL (2.7-7.7); Neutrophil % 73.3 % (47-70); Platelet Count 415 K/mm3 (150-450); RBC Distribution Width SD 45.6 fl (35.1-43.9); Red Blood Count 4.22 M/mm3 (4.6-6.2); White Blood Count 10.8 K/mm3 (4.4-11.0)
[2018-10-22 18:15] LABS: POSITIVE COUNT NO; POSITIVE DIFFERENTIAL NO; POSITIVE MORPHOLOGY NO
[2018-10-22 18:19] LABS: BUN 22 mg/dL (7-18); Creatinine, Serum 1.14 mg/dL (0.70-1.30); EST Glomerular Filtration Rate 69 mL/min (>60); Estimated Creatinine Clearance 70.91 ml/min; Glucose 101 mg/dL (74-106)
[2018-10-22 18:20] LABS: Anion Gap 6 (5-15); BUN/Creat Ratio 19.3 RATIO (10-20); Calcium,Total 8.9 mg/dL (8.5-10.1); Chloride 101 mmol/L (98-107); Est Glom Filt Rate - Afr Amer 83 mL/min (>60); Potassium 3.9 mmol/L (3.5-5.1); Sodium Level 135 mmol/L (136-145)
[2018-10-22 18:22] LABS: Erythrocyte Sedimentation Rate 24 mm/hr (0-20)
[2018-10-22 18:29] VITALS: BP 123/105; PULSE 76; RESP 24; O2SAT 98
--- NOTE | 2018-10-22 18:40 | US_ITS ---
STUDY: VENOUS DOPPLER ULTRASOUND - RIGHT LOWER EXTREMITY REASON FOR EXAM: Male, 63 years old. Pain TECHNIQUE: Ultrasound evaluation of the deep vein system to include mon-scale imaging and compression was performed. Mon-scale imaging and Doppler sonographic evaluation, including duplex spectral analysis and qualitative color flow sonography, was performed. COMPARISON: None. FINDINGS: Common Femoral Vein: Normal compression, spontaneity and augmentation. Normal color Doppler. Common Femoral Vein/Greater Saphenous Junction: Normal compression. Femoral Proximal: Normal compression. Femoral Middle: Normal compression, spontaneity and augmentation. Normal color Doppler. Femoral Distal: Normal compression. Popliteal Vein: Normal compression, spontaneity and augmentation. Normal color Doppler. Posterior Tibial Vein: Normal compression. Peroneal Vein: Normal compression. US/Venous Duplex Imag/Limited/Uni IMPRESSION: Normal venous Doppler ultrasound of the lower extremity. Electronically Signed: Jared Davidson DO at 19:40 EST Tel [phone], Service support ,
[2018-10-22] MEDS: diazePAM 5 MG Tablet PO (18:46)
--- NOTE | 2018-10-22 20:06 | ED.VISSUMM ---
- ER Visit Summary Date of Service: 10/22/18 Chief Complaint: Atraumatic right knee pain disposed right total knee replacement on 10/12/2018. History of Present Illness: The patient is a 63 M status post right knee replacement done by Dr. Willi Mojica of orthopedics approximately 10 days ago. Patient was doing well. He did have pressure sores to his knee. Today he was seen in the orthopedic office by their physician information assistant who was concerned due to the swelling and the pain the patient was having. They wanted to have a noninvasive study to rule out a DVT. Patient states he had a low-grade temperature of 100. He denies any chills. He says the pain is primarily in the back of his leg. Behind his knee. He denies any foot numbness. He is classically on gabapentin for neuropathic pain which he is now been off of. Physical Examination: Older male no acute distress other than complaining of knee pain. Currently his temperature is 96.5. He does not look septic or toxic. At times his pain is not bad and other times he has significant pain behind the right knee. He has a well-healing the incision. Leon are in place. There is mild swelling to the knee. There are skin pressure sores but those are healing also. It is not particularly warm. It is only minimally red and they actually state the redness is getting better. There is no significant discharge from the leon. His thigh and hamstring are unremarkable there is no inguinal lymphadenopathy. Distally his right calf is nontender without significant edema. His DP pulses intact in his right foot. He is able to wiggle his toes. Dorsi plantar flexion is intact. He can flex his knee he does have increased pain with that. Clinically this does not look like a septic joint. Test Results: CBC shows a white count of 10. Hemoglobin of 13. No bands. Electrolytes unremarkable normal creatinine and gap. Sed rate is only 24. Patient was initially given Dilaudid and Zofran. Is given a second dose of Dilaudid. He was also given p.o. Valium which seemed to give him the most relief. Noninvasive study of his right leg showed no signs of a DVT. Emergency Department Course and Treatment: IV Dilaudid and Zofran times 2 weeks. P.o. Valium x1. Treatment Plan: I spoke to Dr. Willi Mojica he will admit the patient for pain control. Without a white count currently a fever or a significant exam for septic joint we are to hold off on any knee aspiration at this time. Dr. Mojica will reevaluate the patient's knee joint decide if that something he chooses to do. The pain and exam are not classic for a postop knee infection or septic joint. Disposition: Admission Impression: Status post right knee replacement with pain of uncertain etiology This note was generated with [employer] dictation software. It may contain incorrect words, spelling, and punctuation that were not noted in review of the chart prior to signing ED Disposition - Plan for ED Patient: Chief Complaint: Lower Extremity Injury [facility]errals: [facility] [Primary Care Provider] -
[2018-10-22 20:32] VITALS: BP 131/71; PULSE 80; O2SAT 94
[2018-10-22] MEDS: Gabapentin 600 MG Tablet PO (20:48)
[2018-10-22 21:11] VITALS: BMI 28.8
[2018-10-22 21:33] VITALS: BP 146/77; PULSE 82; RESP 20; TEMP 36.9; O2SAT 99
[2018-10-22] MEDS: 0.9% Normal Saline 1,000 ML 15 ML IV (21:49)
[2018-10-22] MEDS: HYDROmorphone 1 MG/ML Syringe 2 MG IV (21:49)
[2018-10-22] MEDS: Atorvastatin Calcium 40 MG Tablet PO (22:04)
[2018-10-22] MEDS: Amitriptyline 100 MG Tablet 150 MG PO (22:04)
[2018-10-22] MEDS: Acetaminophen 500 MG Tablet 1000 MG PO (22:04)
[2018-10-22] MEDS: Pantoprazole Sodium 40 MG Tablet PO (23:02)
[2018-10-22] MEDS: LORazepam 1 MG Tablet PO (23:33)
[2018-10-23] MEDS: 0.9% NaCl Peripheral Flush Adult/Peds IV ×4 (00:10→22:56)
[2018-10-23] MEDS: HYDROmorphone 1 MG/ML Syringe 2 MG IV ×4 (00:10→22:57)
[2018-10-23 03:46] VITALS: BP 92/60; PULSE 88; RESP 16; TEMP 37.1; O2SAT 93
[2018-10-23 05:46] VITALS: BP 111/59; PULSE 87; RESP 20; TEMP 37; O2SAT 94
[2018-10-23] MEDS: Acetaminophen 500 MG Tablet 1000 MG PO ×3 (05:53→21:16)
--- NOTE | 2018-10-23 06:37 | PCM.HP.STD ---
History of Present Illness Date of Admission: 10/22/18 Chief Complaint: Intractable right knee pain The patient is a 63 year old M [who underwent right TKR on . He was seen in office yesterday and labs were done to r/o infection and doppler ultrasound to r/o DVT. All were negative. Patient was admitted last night for intractable right knee pain not responsive to two doses of IV Dilaudid in the ED. Patient was placed on Oxycontin and Ativan last night (as anxiety was felt to be a major component of his pain). This morning patient is sleeping soundly when I enter the room and in fact has to be aroused to answer questions. However, when he did wake up, he appeared agitated. He reported the pain as constant and behind the knee. Denies fevers, chills, nausea or vomiting. ] Past Medical History Allergies No Known Allergies Allergy (Verified 10/22/18 17:11) Home Medications: Ambulatory Orders Medication Instructions Recorded Amitriptyline HCl [Elavil] 150 mg PO QHS 09/29/18 Atorvastatin Calcium [Lipitor] 40 mg PO QHS 09/29/18 Celecoxib [Celebrex] 200 mg PO DAILY 09/29/18 Cholecalciferol (VIT D3) [Vitamin 1,000 unit PO DAILY 09/29/18 D3] Cyanocobalamin (Vitamin B-12) 1,000 mcg PO DAILY 09/29/18 [Vitamin B-12] Fexofenadine HCl [Billie Allergy] 180 mg PO DAILY 09/29/18 Fluticasone 0.05% [Flonase Nasal 2 spray NASAL DAILY 09/29/18 [place]] Folic Acid 0.4 mg PO BID 09/29/18 Gabapentin [Neurontin] 800 mg PO TIDCM 09/29/18 Ginkgo Biloba 120 mg PO TID 09/29/18 Glucosamine/MSM/Chondroitin A 1 each PO BID 09/29/18 [Glucosamine Chondroit MSM Tab] Multivitamin [Multiple Vitamins] 1 each PO DAILY 09/29/18 Pantoprazole Sodium [Protonix] 40 mg PO DAILY 09/29/18 Potassium 99 mg PO TID 09/29/18 Aspirin 325 mg PO BIDCM #60 tab 10/13/18 Dextroamphetamine/Amphetamine 20 mg PO DAILY 10/13/18 [Adderall Xr 20 mg Capsule] Acetaminophen [Tylenol] 1,000 mg PO Q8H 10/22/18 Smoking Status: Former smoker VTE Information - Inpt Only VTE Present on Admission: No VTE Mechan Device Prophylaxis: None VTE Pharm Prophylaxis ordered?: Yes - Physical Exam General: Alert, No apparent distress, - - Agitated when awake HEENT: Atraumatic, PERRLA, EOMI, Normocephalic Oral: Moist Mucosa Neck: Supple, No JVD Cardiovascular: Regular rate, Regular Rhythm Abdomen: Bowel Sounds Present, Soft, Non Tender Skin: No rashes, No breakdown, Incision - Stable with leon in place. Healing, non-infected appearing blisters anteriorly. Musculoskeletal: Tenderness - No significant warmth or erythema. Gentle ROM well-tolerated. Neurological: Neuro grossly intact Vital Signs Temp Pulse Resp BP Pulse Ox 98.6 F 87 20 H 111/59 L 94 10/23/18 05:46 10/23/18 05:46 10/23/18 05:46 10/23/18 05:46 10/23/18 05:46 Oxygen Flow Rate (L/min) 2 Oxygen Delivery Method Nasal Cannula Weight: 212 lb 4.882 oz Body Mass Index (BMI) 28.8 Intake and Output for Last 24 Hours 10/21/18 10/22/18 10/23/18 23:59 23:59 23:59 Intake Total 565 / 565 94 / 94 Output Total 175 / 175 150 / 150 Balance 390 / 390 -56 / -56 Laboratory Tests Past 24 Hrs 10/22/18 10/22/18 17:55 17:55 WBC 10.8 RBC 4.22 L Hgb 13.9 Hct 40.8 MCV 96.7 H MCH 32.9 H MCHC 34.1 RDW 13.0 RDW Differential 45.6 H Plt Count 415 MPV 9.2 Immature Gran % (Auto) 0.700 Neut % (Auto) 73.3 H Lymph % (Auto) 11.9 L Cotton % (Auto) 12.0 H Eos % (Auto) 1.8 Baso % (Auto) 0.3 Absolute Neuts (auto) 7.9 H Absolute Lymphs (auto) 1.28 Total Counted Not Reportable ESR 24 H Sodium 135 L Potassium 3.9 Chloride 101 Carbon Dioxide 28.0 Anion Gap 6 BUN 22 H Creatinine 1.14 Estim Creat Clear Calc 70.91 Est GFR (MDRD) Af Amer 83 Est GFR (MDRD) Non-Af 69 BUN/Creatinine Ratio 19.3 Glucose 101 Calcium 8.9 Assessment/Plan Intractable right knee pain s/p TKR No evidence for infection, DVT or fracture Will start on Oxycontin with Oxy IR for breakthrough pain. Ativan as needed for anxiety.
[2018-10-23 08:21] VITALS: BP 102/63; PULSE 78; RESP 18; TEMP 36.7; O2SAT 96
[2018-10-23] MEDS: Folic Acid 1 MG Tablet 0.5 MG PO ×2 (09:21→17:21)
[2018-10-23] MEDS: Aspirin 325 MG Tablet PO ×2 (09:21→17:21)
[2018-10-23] MEDS: Multivitamins,Therapeutic Tablet 1 TABLET PO (09:22)
[2018-10-23] MEDS: Gabapentin 800 MG Tablet PO ×3 (09:22→17:22)
[2018-10-23] MEDS: Loratadine 10 MG Tablet PO (09:23)
[2018-10-23] MEDS: Celecoxib 200 MG Capsule PO (09:23)
[2018-10-23] MEDS: Fluticasone 0.05% 1 SPRAY NASAL.SRY 2 SPRAY NASAL (09:23)
[2018-10-23] MEDS: Cyanocobalamin 500 MCG Tablet 1000 MCG PO (09:25)
[2018-10-23] MEDS: Pantoprazole Sodium 40 MG Tablet PO (09:27)
[2018-10-23 10:00] VITALS: RESP 18
[2018-10-23] MEDS: LORazepam 1 MG Tablet PO ×2 (11:56→20:14)
--- NOTE | 2018-10-23 12:01 | CASEMGMT ---
Addendum entered by Bailee Mason 10/23/18 12:29: SW faxed referral to [facility]. JASMINA Adhikari, CASH POSTING REPRESENTATIVE Original Note: SW spoke w/pt in room in regard to discharge planning. Pt painful while talking to SW, pt wincing, and twitching while SW speaking w/him. SW spoke w/pt about discharge options. Pt had surgery on the and has been home since then. SW asked pt about going somewhere for rehab, pt agreeable to this, though is not certain where he would want to go. SW gave pt a list of nursing homes that take pt's insurance, however pt exhibiting difficulty with looking at the list and speaking w/the SW due to the wincing and twitching. SW inquired if it would be okay to call his , pt is agreeable to this. SW called [facility]. SW explained had been in to speak w/pt however he is having a difficult time speaking w/SW, agreeable to have SW speak w/her. SW explained spoke w/pt about going somewhere for rehab, pt agreeable but did not know where. SW explained pt was okay w/SW calling her in regard to options. in agreement. She states pt has been having muscle spasms for days and is in agreement with pt going somewhere for rehab, would like it to be close to home. She states she has been working and calling him, and he does not answer. She is concerned about him being home when she is working. She states pt does not have anyone else in [place]. SW reviewed nursing homes w/ that take [employer], she agreed to a referral being sent to [facility]. also states that pt's surgery was [facility] by [facility], not [employer]. SW explained will see how this hospitalization is covered, and the senior care request will likely go to that insurance. SW explained that whether the [facility] or [employer] is the insurance, it will also determine where pt can go. SW explained will look into this and let her know. states she only slept one hour last night, and needs to go sleep. SW explained if she does not answer will leave her a voice mail. As per chart, this stay for pt is under his [employer], not [facility]. SW called [facility], pt is not service connected, so senior care would not be covered under [facility]. SW called [facility]([phone]), spoke w/Bibi, she will pass on the referral to [facility] and let NATHANIEL know about bed availability and if they can take pt. Fax is [phone]. NATHANIEL will print clinical information and fax it shortly. JASMINA Adhikari, CASH POSTING REPRESENTATIVE
--- NOTE | 2018-10-23 14:03 | CASEMGMT ---
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 Eventually found her way to on MS3, she let this SW know, this SW called . spoke about the frustration w/the bituminous paving machine operator. SW offered support and gave her the direct number to MS2 and the pt's room. SW also let her know a referral was made to [facility], explained it will be through [facility] for alf as [place] will not cover SNF. SW explained that pt is not service connected so SNF will not be covered by them. SW explained waiting for a call back from [facility], will let her know if we hear anything today. SW explained we may not hear back today pt would then be here through the weekend. reiterated she prefers a facility in [place] as they live in [place] and it's closer to her work. plans to call back pt shortly and speak w/him. SW spoke w/pt, let him know spoke w/, and made referral to [facility]. SW let pt know also that we are waiting to hear back but it is likely we will not hear anything today. SW will continue to follow. SW did call [facility] at [facility], she states they can take pt and she is going to call pt's insurance now. SW gave her Kelsey's number to call if any issues, otherwise we can assume that [facility] can take pt and precert is pending. JASMINA Adhikari, MEASUREMENT DEPARTMENT CHIEF CLERK
[2018-10-23 14:30] VITALS: BP 120/74; PULSE 81; RESP 18; TEMP 36.8; O2SAT 94
--- NOTE | 2018-10-23 16:47 | CASEMGMT ---
Social Work Received call from Nicole at [facility]. Precert from insurance has been obtained and pt can be admitted when medically ready. MARCIAL Briceno notified and to notify physician. SW informed pt and Rose Marie and both are agreeable to d/c to [facility]. PassRR completed and placed on chart. Phone call to Nicole at [facility] informing that it was uncertain at this time of d/c date but charge nurse would be contacting facility with physicians decision. Plan: [facility] when medically ready BREANN Mills
--- NOTE | 2018-10-23 17:54 | NURSING ---
this RN has made multiple attempts to call the physician regarding acceptance and precert to ECF. no response from MD at this time. will anticipate pt remaining here this evening, primary RN notified and , Rose Marie, notified.
[2018-10-23 20:05] VITALS: BP 113/76; PULSE 82; RESP 18; TEMP 36.7; O2SAT 94
[2018-10-23] MEDS: Amitriptyline 100 MG Tablet 150 MG PO (21:15)
[2018-10-23] MEDS: Atorvastatin Calcium 40 MG Tablet PO (21:16)
[2018-10-24 02:02] VITALS: BP 91/75; PULSE 81; RESP 16; TEMP 36.9; O2SAT 97
[2018-10-24 04:53] VITALS: BP 116/86; PULSE 77; RESP 18; TEMP 37.2; O2SAT 97
[2018-10-24] MEDS: HYDROmorphone 1 MG/ML Syringe 2 MG IV (04:56)
[2018-10-24] MEDS: 0.9% NaCl Peripheral Flush Adult/Peds IV (04:56)
[2018-10-24] MEDS: Acetaminophen 500 MG Tablet 1000 MG PO ×2 (05:02→14:47)
[2018-10-24 08:02] VITALS: BP 138/91; PULSE 89; RESP 20; TEMP 37.1; O2SAT 93
[2018-10-24] MEDS: Loratadine 10 MG Tablet PO (08:17)
[2018-10-24] MEDS: Celecoxib 200 MG Capsule PO (08:17)
[2018-10-24] MEDS: Cyanocobalamin 500 MCG Tablet 1000 MCG PO (08:17)
[2018-10-24] MEDS: Gabapentin 800 MG Tablet PO ×3 (08:17→16:05)
[2018-10-24] MEDS: Folic Acid 1 MG Tablet 0.5 MG PO ×2 (08:17→16:05)
[2018-10-24] MEDS: Fluticasone 0.05% 1 SPRAY NASAL.SRY 2 SPRAY NASAL (08:18)
[2018-10-24] MEDS: Pantoprazole Sodium 40 MG Tablet PO (08:18)
[2018-10-24] MEDS: Aspirin 325 MG Tablet PO ×2 (08:18→16:05)
[2018-10-24] MEDS: Multivitamins,Therapeutic Tablet 1 TABLET PO (08:18)
[2018-10-24] MEDS: LORazepam 1 MG Tablet PO ×2 (08:23→16:13)
--- NOTE | 2018-10-24 10:18 | CASEMGMT ---
Pt's here, asked about how SNF is covered under [employer]. SW called [facility], pt was approved from 10/23-10/30, but the fax from [facility] does not say how it's covered--fully, or if there is a copay. SW spoke w/pt and in room. SW let them know pt is covered from 10/23-10/30, though this SW does not know what pt's benefit is, how it's covered by [employer]. SW advised to call [facility] Friday herself or call [facility] and ask them. states understanding. Green sheet on chart in event pt is able to go to [facility] today. JASMINA Adhikari, TALENT ADVISOR
[2018-10-24 14:00] VITALS: BP 141/84; PULSE 78; RESP 18; TEMP 36.8; O2SAT 94
--- NOTE | 2018-10-24 14:49 | PCM.PN.ORT ---
Subjective: Patient admitted recently by Dr. Mojica for postoperative knee pain after right total knee replacement. Patient better controlled with pain. Arrangements to ECF have been made. Reportedly patient could have been discharged yesterday. Objective: Right knee incision is intact with leon. Skin shows signs of resolved blisters with some scabbing about medial and lateral knee. No obvious signs of involvement of the incision itself. Knee motion is 7-30 degrees. No calf pain or swelling bilaterally. Negative Homans sign bilaterally. No thigh pain. No expressible drainage from the incision. Knee swelling seems consistent with recent knee replacement. No significant warmth or redness. No hip pain with motion. Patient is able to do a straight leg raise on the right off the bed. Case had been discussed with Dr. Mojica as well as Chemo RENO Vital signs and laboratory work reviewed Dr. Mojica signed patient out to me in his absence. Patient planned to be discharged to ECF when arrangements made - Physical Exam Vital Signs Temp Pulse Resp BP Pulse Ox 98.2 F 78 18 141/84 H 94 10/24/18 14:00 10/24/18 14:00 10/24/18 14:00 10/24/18 14:00 10/24/18 14:00 Oxygen Flow Rate (L/min) 2 Oxygen Delivery Method Room Air Weight: 96.3 kg Body Mass Index (BMI) 28.8 Intake and Output for Last 24 Hours 10/22/18 10/23/18 10/24/18 23:59 23:59 23:59 Intake Total 565 / 565 2324 / 2324 820 / 820 Output Total 175 / 175 975 / 975 800 / 800 Balance 390 / 390 1349 / 1349 Medical Necessity - Tobacco Use Smoking Status: Former smoker Assessment/Plan Status post right total knee replacement by Dr. Mojica. Negative workup for infection, DVT. Pain better controlled. Plan DC to ECF on OxyContin, oxycodone, Ativan. Also Celebrex, Tylenol. Recommended ice and elevation. Recommended range of motion. Weightbearing as tolerated. Continue aspirin for DVT prevention. Follow-up with Dr. Mojica as planned. Probable DC to ECF today. Patient is aware. All of his questions answered.
--- NOTE | 2018-10-24 15:39 | NURSING ---
report called to Macario at [facility] care called and scheduled for 1630- called and updated with discharge time. Patient updated.
--- NOTE | 2018-10-24 16:14 | NURSING ---
pt notified of discharge- and became very anxious. pt requesting something to help. medication given prior to discharge.
--- NOTE | 2018-10-30 11:44 | NURSING ---
Pt's called in regarding walker that was left when pt was discharge. , Rose Marie, states she will be in tomorrow AM to picked edge sewing machine operator and wanted to know where it would be. Notified her that walker will be on MS3 in charge nurses' office for her to picked edge sewing machine operator in the morning. Understanding verbalized.
--- OUTSIDE RECORDS SUMMARY | 2018-12-17 23:30 | XMS RPT_ITS ---
:1955 Author Organization [facility] Care Team Providers Name Role Phone JAY OVALLES Attending Unavailable CHARLETTEJAY PALMER Referring Unavailable CHARLETTEJAY PALMER Attending Unavailable CHARLETTEJAY PALMER Referring Unavailable CHARLETTEJAY PALMER Attending Unavailable CHARLETTE, JAY Bailey Referring Unavailable CHARLETTEJAY PALMER Attending Unavailable IDANIA CORTEZ, DR. RODRIGUES Attending Unavailable PHYSICIAN, NONE Primary Care Unavailable Willi Mojica Admitting Unavailable Willi Mojica Attending Unavailable Willi Mojica Referring [facility]available [facility] [place] [facility] Unavailable Yair Durant Attending Unavailable Willi Mojica Referring [facility] [place] Primary Care Unavailable Willi Mojica Admitting Unavailable Willi Mojica Attending Unavailable PROBLEMS PROBLEMS DATE TYPE CONDITION / CODE ATTENDING STATUS SOURCE 10/14/2018 Unknown G89.18 - Other acute Willi Mojica postprocedural pain [facility] / G89.18(ICD-10) Hospital Repository 10/14/2018 Unknown Z01.810 - Encounter Yair Durant for preprocedural [facility] cardiovascular [facility] examination / Repository Z01.810(ICD-10) PROCEDURES PROCEDURES No Procedure Records FoundRESULTS RESULTS HISTORY AND PHYSICAL Observed: 10/23/2018 Status: F Source: CLAUDINE EXAM 6:52 AM [facility] REPOSITORY [facility] Medical Records Department [address] [place] [address] History and Physical 10/23/18 0637 MR#: [id number] Acct: [id number] Name: SACHIN ANDREWS Rep #: [id number] : 1955 63 From: Willi Mojica DO PCP: Danielle [place] Status: ADM YEIMY Y Location: [place] [address] History of Present Illness Date of Admission: 10/22/18 Chief Complaint: Intractable right knee pain The patient is a 63 year old M [who underwent right TKR on . He was seen in office yesterday and labs were done to r/o infection and doppler ultrasound to r/o DVT. All were negative. Patient was admitted last night for intractable right knee pain not responsive to two doses of IV Dilaudid in the ED. Patient was placed on Oxycontin and Ativan last night (as anxiety was felt to be a major component of his pain). This morning patient is sleeping soundly when I enter the room and in fact has to be aroused to answer questions. However, when he did wake up, he appeared agitated. He reported the pain as constant and behind the knee. Denies fevers, chills, nausea or vomiting. ] Past Medical History Allergies No Known Allergies Allergy (Verified 10/22/18 17:11) Home Medications: Ambulatory Orders Medication Instructions Recorded Smoking Status: Former smoker VTE Information - Inpt Only VTE Present on Admission: No VTE Mechan Device Prophylaxis: None VTE Pharm Prophylaxis ordered?: Yes - Physical Exam General: Alert, No apparent distress, - - Agitated when awake HEENT: Atraumatic, PERRLA, EOMI, Normocephalic Oral: Moist Mucosa Neck: Supple, No JVD Cardiovascular: Regular rate, Regular Rhythm Abdomen: Bowel Sounds Present, Soft, Non Tender Skin: No rashes, No breakdown, Incision - Stable with leon in place. Healing, non-infected appearing blisters anteriorly. Musculoskeletal: Tenderness - No significant warmth or erythema. Gentle ROM well-tolerated. Neurological: Neuro grossly intact Vital Signs Temp Pulse Resp BP Pulse Ox 98.6 F 87 20 H 111/59 L 94 10/23/18 05:46 10/23/18 05:46 10/23/18 05:46 10/23/18 05:46 10/23/18 05:46 Oxygen Flow Rate (L/min) 2 Oxygen Delivery Method Nasal Cannula Weight: 212 lb 4.882 oz Body Mass Index (BMI) 28.8 Intake and Output for Last 24 Hours Intake Total 565 / 565 94 / 94 Output Total 175 / 175 150 / 150 Balance 390 / 390 -56 / -56 Laboratory Tests Past 24 Hrs WBC 10.8 RBC 4.22 L Hgb 13.9 Hct 40.8 MCV 96.7 H MCH 32.9 H MCHC 34.1 RDW 13.0 Assessment/Plan Intractable right knee pain s/p TKR No evidence for infection, DVT or fracture Will start on Oxycontin with Oxy IR for breakthrough pain. Ativan as needed for anxiety. 10/23/18 0652 <Electronically signed by Willi Mojica DO> Date Willi Mojica DO Cosigner Signature: Date (if applicable) CC: [facility]; Willi Mojica DO Signed EMERGENCY DEPARTMENT Observed: 10/22/2018 Status: F Source: MARION SUMMARY 11:54 PM [facility] REPOSITORY [facility] Medical Records Department [address] [place] [address] Emergency Department Summary 10/22/182005 MR#: [id number] Acct: [id number] Name: SACHIN ANDREWS Radha Rep #: [id number] : 1955 63 From: Julio César Mar MD PCP: [place] Status: ADM YEIMY - ER Visit Summary Date of Service: 10/22/18 Chief Complaint: Atraumatic right knee pain disposed right total knee replacement on 10/12/2018. History of Present Illness: The patient is a 63 M status post right knee replacement done by Dr. Willi Mojica of orthopedics approximately 10 days ago. Patient was doing well. He did have pressure sores to his knee. Today he was seen in the orthopedic office by their physician senior sales assistant who was concerned due to the swelling and the pain the patient was having. They wanted to have a noninvasive study to rule out a DVT. Patient states he had a low-grade temperature of 100. He denies any chills. He says the pain is primarily in the back of his leg. Behind his knee. He denies any foot numbness. He is classically on gabapentin for neuropathic pain which he is now been off of. Physical Examination: Older male no acute distress other than complaining of knee pain. Currently his temperature is 96.5. He does not look septic or toxic. At times his pain is not bad and other times he has significant pain behind the right knee. He has a well-healing the incision. Orange are in place. There is mild swelling to the knee. There are skin pressure sores but those are healing also. It is not particularly warm. It is only minimally red and they actually state the redness is getting better. There is no significant discharge from the leon. His thigh and hamstring are unremarkable there is no inguinal lymphadenopathy. Distally his right calf is nontender without significant edema. His DP pulses intact in his right foot. He is able to wiggle his toes. Dorsi plantar flexion is intact. He can flex his knee he does have increased pain with that. Clinically this does not look like a septic joint. Test Results: CBC shows a white count of 10. Hemoglobin of 13. No bands. Electrolytes unremarkable normal creatinine and gap. Sed rate is only 24. Patient was initially given Dilaudid and Zofran. Is given a second dose of Dilaudid. He was also given p.o. Valium which seemed to give him the most relief. Noninvasive study of his right leg showed no signs of a DVT. Emergency Department Course and Treatment: IV Dilaudid and Zofran times 2 weeks. P.o. Valium x1. Treatment Plan: I spoke to Dr. Willi Mojica he will admit the patient for pain control. Without a white count currently a fever or a significant exam for septic joint we are to hold off on any knee aspiration at this time. Dr. Mojica will reevaluate the patient's knee joint decide if that something he chooses to do. The pain and exam are not classic for a postop knee infection or septic joint. Disposition: Admission Impression: Status post right knee replacement with pain of uncertain etiology This note was generated with Cloudtopation software. It may contain incorrect words, spelling, and punctuation that were not noted in review of the chart prior to signing ED Disposition - Plan for ED Patient: Chief Complaint: Lower Extremity Injury Referrals: [facility] [Primary Care Provider] - What to do if you have Problems For any increased pain, shortness of breath, bleeding, nausea or vomiting, chest pain, or any unexpected problems, contact your Primary Care Provider. Call [facility] ([phone]) or report to the closest Emergency Room. Call 911 if necessary. 10/22/18 4918 <Electronically signed by Julio César Mar MD> Date Julio César Mar MD Cosigner Signature (If Indicated): Date CC: [facility] VENOUS DUPLEX Observed: 10/22/2018 Status: F Source: CLAUDINE IMAG/LIMITED/UNI 6:40 PM [facility] REPOSITORY [facility] Imaging Services [address] [place] [address] Venous Duplex Imag/Limited/Uni MR#: [id number] Acct: [id number] Name: SACHIN ANDREWS Rep #: [id number] : 1955 M 63 From: Jared Davidson DO PCP: [place] Status: REG ER Study: Venous Duplex Imag/Limited/Uni Date of Exam: 10/22/18 Exam# [id number] Ordering Dr: Julio César Mar MD STUDY: VENOUS DOPPLER ULTRASOUND - RIGHT LOWER EXTREMITY REASON FOR EXAM: Male, 63 years old. Pain TECHNIQUE: Ultrasound evaluation of the deep vein system to include mon-scale imaging and compression was performed. Mon-scale imaging and Doppler sonographic evaluation, including duplex spectral analysis and qualitative color flow sonography, was performed. COMPARISON: None. FINDINGS: Common Femoral Vein: Normal compression, spontaneity and augmentation. Normal color Doppler. Common Femoral Vein/Greater Saphenous Junction: Normal compression. Femoral Proximal: Normal compression. Femoral Middle: Normal compression, spontaneity and augmentation. Normal color Doppler. Femoral Distal: Normal compression. Popliteal Vein: Normal compression, spontaneity and augmentation. Normal color Doppler. Posterior Tibial Vein: Normal compression. Peroneal Vein: Normal compression. US/Venous Duplex Imag/Limited/Uni IMPRESSION: Normal venous Doppler ultrasound of the lower extremity. Electronically Signed: Jared Davidson DO at 19:40 EST Tel [phone], Service support , CC: [facility]; Julio César Mar MD Contract Engineer: Signed CBC W/DIFF, AUTOMATED Collected: 10/22/2018 Status: F Source: CLAUDINE 5:55 PM [facility] REPOSITORY TYPE CODE TESTS RESULT OUT OF RANGE REFERENCE UNITS LAB L100.1000 4.4-11.0 K/mm3 Normal WBC 10.8 LAB L100.1200 4.6-6.2 M/mm3 Low RBC 4.22 LAB L100.1300 13.0-16.5 g/dl Normal HGB 13.9 LAB L100.1400 40-54 % Normal HCT 40.8 LAB L100.1500 80-94 fL High MCV 96.7 LAB L100.1600 27.0-32.0 pg High MCH 32.9 LAB L100.1700 32-36 g/gl Normal MCHC 34.1 LAB L100.1810 11.6-14.6 % Normal RDW CV 13.0 LAB L100.1820 35.1-43.9 fl High RDW SD 45.6 LAB L100.1900 150-450 K/mm3 Normal PLT 415 LAB L100.2000 6.2-12.0 fl Normal MPV 9.2 LAB L100.2100 47-70 % High NEUT% 73.3 LAB L100.2200 19-41 % Low LY% 11.9 LAB L100.2300 0-10 % High MONO% 12.0 LAB L100.2400 0-5 % Normal EO% 1.8 LAB L100.2500 0-1 % Normal BASO% 0.3 LAB L100.2550 0.0-0.9 % Normal IM GRAN % 0.700 Result Comment: IG% - Immature Granulocytes (promyelocytes, myelocytes and metamyelocytes) > 1% indicates that a LEFT SHIFT is Present. LAB L100.2620 2.0-7.7 X10 3/uL High Absolute Neut 7.9 LAB L100.2720 0.83-4.51 X10 3/ul Normal Absolute Lymph 1.28 Performed By: #### L100.0100, L101.9900 #### [facility] [address] [place], [place], [address] ERYTHROCYTE SED RATE Collected: 10/22/2018 Status: F Source: MARION 5:55 PM [facility] REPOSITORY TYPE CODE TESTS RESULT OUT OF RANGE REFERENCE UNITS LAB L102.0000 0-20 mm/hr High SED RATE 24 Performed By: #### L100.0100, L101.9900 #### [facility] [address] [place], [address] BASIC METABOLIC Collected: 10/22/2018 Status: F Source: MARION PROFILE (BMP) 5:55 PM [facility] REPOSITORY TYPE CODE TESTS RESULT OUT OF RANGE REFERENCE UNITS LAB L501.0100 74-106 mg/dL Normal GLU 101 Result Comment: Fasting Glucose result from 100 to 125 mg/dL suggests IMPAIRED HOMEOSTASIS per A.D.A. criteria. Please note revised GLUCOSE reference range effective 2017. LAB L501.1000 7-18 mg/dL High BUN 22 LAB L501.1100 0.70-1.30 mg/dL Normal CREAT,SERUM 1.14 Result Comment: The validity of the calculated GFR AND GFRAA in patients over 70 years has not been determined. Clinical correlation is essential. LAB L501.1110 >60 mL/min Normal EST GFR 69 Result Comment: Non- GFR Calc LAB L501.1115 >60 mL/min Normal EST GFR - AA 83 Result Comment: GFR Calc LAB L501.1255 ml/min Normal Estimated CRCL 70.91 LAB L501.1300 10-20 RATIO Normal BUN/CRE 19.3 LAB L501.2200 8.5-10 mg/dL Normal .1 CA 8.9 LAB L501.5300 136-14 mmol/L Low 5 NA 135 LAB L501.5600 3.5-5. mmol/L Normal 1 K 3.9 LAB L501.5900 98-107 mmol/L Normal CL 101 LAB L501.6100 21.0-3 mmol/L Normal 2.0 CO2 28.0 LAB L501.6200 5-15 Normal GAP 6 Performed By: #### L500.2500 #### [facility] [address] [place], [address] KNEE 1 OR 2 VIEWS Observed: 10/22/2018 Status: F Source: MARION 5:41 PM [facility] REPOSITORY [facility] Imaging Services [address] [place] [address] Knee 1 or 2 Views MR#: [id number] Acct: [id number] Name: SACHIN ANDREWS Rep #: [id number] : 1955 63 From: Beni Amezcua DO PCP: [place] Status: REG ER Study: Knee 1 or 2 Views Date of Exam: 10/22/18 Exam# [id number] Ordering Dr: Julio César Mar MD STUDY: X-RAY - RIGHT KNEE REASON FOR EXAM: Male, 63 years old. Recent total knee surgery. Severe pain and swelling. TECHNIQUE: 2 view(s) of the knee. COMPARISON: None. FINDINGS: There is a total knee replacement. The prosthetic components are intact and articulate normally with each other. There is no evidence of loosening from the underlying bone. There is no evidence of osseous fracture or destructive osseous pathology. There is swelling in the anterior soft tissues with midline skin clips. Question suprapatellar joint effusion. The soft tissue structures are unremarkable. RAD/Knee 1 or 2 Views IMPRESSION: 1. Right total knee arthroplasty. There is no acute fracture or dislocation. 2. Anterior soft tissue swelling with questionable suprapatellar joint effusion. Electronically Signed: Beni Amezcua DO at 19:04 EST Tel [phone], Service support , CC: [facility]; Julio César Mar MD Contract Engineer: Signed DISCHARGE INSTRUCTION Observed: 10/13/2018 Status: F Source: MARION 7:44 AM [facility] REPOSITORY [facility] Medical Records Department [address] [place] [address] Instructions for Home/Discharge Instructions 10/13/18 0743 MR#: [id number] Acct: [id number] Name: SACHIN ANDREWS Rep #: [id number] : 1955 63 From: Hiro Ornelas PA-C PCP: [place] Status: ADM IN Discharge Diet: No Restrictions Discharge Activity: May Not Drive, May Shower, Use Walker May shower in (days): 3 Ice area for (Minutes): 20 - each hour while awake. Weight Bearing Status: Weight bearing as tolerated Elevate: Operative Extremity Additional Activity Instructions:: Wear elastic stockings for 2 weeks after your surgery. Call your doctor if your incision/area has: Continuous Slow Oozing, Sudden Increased Bleeding, Increased Pain/ Swelling, Increased Redness, Foul Smelling Discharge Call your doctor if you observe: Fever of 101 or Higher, Coldness, Increased Pain - in extremity, Numbness or Tingling, Change in Color, Calf discomfort, Uncontrolled pain Change Dressing in (Days):: 0 - and daily as needed. Remove Dressing in (days):: 8 Cleanse incision/area with: Soap AND Water Allergies/Adverse Reactions: Allergies No Known Allergies Allergy (Verified 10/12/18 07:10) Medications to take at Discharge Amitriptyline HCl [Elavil] 150 mg PO QHS 09/29/18 Atorvastatin Calcium [Lipitor] 40 mg PO QHS 09/29/18 Celecoxib [Celebrex] 200 mg PO DAILY 09/29/18 Cholecalciferol (VIT D3) [Vitamin D3] 1,000 unit PO DAILY 09/29/18 Cyanocobalamin (Vitamin B-12) [Vitamin B-12] 1,000 mcg PO DAILY 09/29/18 Fexofenadine HCl [Billie Allergy] 180 mg PO DAILY 09/29/18 Fluticasone 0.05% [Flonase Nasal [place]] 2 spray NASAL DAILY 09/29/18 Folic Acid 0.4 mg PO BID 09/29/18 Gabapentin [Neurontin] 800 mg PO TIDCM 09/29/18 Ginkgo Biloba 120 mg PO TID 09/29/18 Glucosamine/MSM/Chondroitin A [Glucosamine Chondroit MSM Tab] 1 each PO BID 09/29/18 Multivitamin [Multiple Vitamins] 1 each PO DAILY 09/29/18 Pantoprazole Sodium [Protonix] 40 mg PO DAILY 09/29/18 Potassium 99 mg PO TID 09/29/18 Acetaminophen [Tylenol] 1,000 mg PO Q8 #90 tab 10/13/18 Aspirin 325 mg PO BIDCM #60 tab 10/13/18 Oxycodone [Oxyir] 5 - 10 mg PO Q4H PRN PRN 7 Days #96 tab 10/13/18 The following prescriptions were given: Oxycodone [Oxyir] 5 - 10 mg PO Q4H PRN PRN 7 Days #96 tab PRN Reason: Mod-Severe Pain (4-09/02) Acetaminophen [Tylenol] 1,000 mg PO Q8 #90 tab Aspirin 325 mg PO BIDCM #60 tab Primary Care Physician: [facility] [Primary Care Provider] - Test Results: Test results from this visit will be discussed in further detail at your follow-up appointment, if applicable. Please Follow Up With: Willi Mojica DO When: see pink sheet 10/13/18 0744 <Electronically signed by Hiro Ornelas PA-C> Date Hiro Ornelas PA-C CC: [facility] CBC-COMPLETE BLOOD CNT Collected: 10/13/2018 Status: F Source: CLAUDINE NO DIFF 5:10 AM [facility] REPOSITORY TYPE CODE TESTS RESULT OUT OF RANGE REFERENCE UNITS LAB L100.1000 4.4-11.0 K/mm3 Normal WBC 7.7 LAB L100.1200 4.6-6.2 M/mm3 Low RBC 3.97 LAB L100.1300 13.0-16.5 g/dl Normal HGB 13.4 LAB L100.1400 40-54 % Low HCT 38.6 LAB L100.1500 80-94 fL High MCV 97.2 LAB L100.1600 27.0-32.0 pg High MCH 33.8 LAB L100.1700 32-36 g/gl Normal MCHC 34.7 LAB L100.1810 11.6-14.6 % Normal RDW CV 12.6 LAB L100.1820 35.1-43.9 fl High RDW SD 44.0 LAB L100.1900 150-450 K/mm3 Normal PLT 205 LAB L100.2000 6.2-12.0 fl Normal MPV 10.7 Performed By: #### L100.0500 #### [facility] [address] [place], [address] BASIC METABOLIC Collected: 10/13/2018 Status: F Source: MARION PROFILE (BMP) 5:10 AM [facility] REPOSITORY TYPE CODE TESTS RESULT OUT OF RANGE REFERENCE UNITS LAB L501.0100 74-106 mg/dL Normal GLU 102 Result Comment: Fasting Glucose result from 100 to 125 mg/dL suggests IMPAIRED HOMEOSTASIS per A.D.A. criteria. Please note revised GLUCOSE reference range effective 2017. LAB L501.1000 7-18 mg/dL Normal BUN 13 LAB L501.1100 0.70-1.30 mg/dL Normal CREAT,SERUM 1.00 Result Comment: The validity of the calculated GFR AND GFRAA in patients over 70 years has not been determined. Clinical correlation is essential. LAB L501.1110 >60 mL/min Normal EST GFR 80 Result Comment: Non- GFR Calc LAB L501.1115 >60 mL/min Normal EST GFR - AA 97 Result Comment: GFR Calc LAB L501.1255 ml/min Normal Estimated CRCL 76.04 LAB L501.1300 10-20 RATIO Normal BUN/CRE 13.1 LAB L501.2200 8.5-10 mg/dL Low .1 CA 8.0 LAB L501.5300 136-14 mmol/L Normal 5 NA 142 LAB L501.5600 3.5-5. mmol/L Normal 1 K 3.8 LAB L501.5900 98-107 mmol/L Normal CL 105 LAB L501.6100 21.0-3 mmol/L Normal 2.0 CO2 28.0 LAB L501.6200 5-15 Normal GAP 9 Performed By: #### L500.2500 #### [facility] [address] [place], [place], [address] CBC-COMPLETE BLOOD CNT Collected: 10/12/2018 Status: F Source: CLAUDINE NO DIFF 12:00 PM [facility] REPOSITORY Order Comment: Comments: To be done in PACU TYPE CODE TESTS RESULT OUT OF RANGE REFERENCE UNITS LAB L100.1000 4.4-11.0 K/mm3 Normal WBC 5.8 LAB L100.1200 4.6-6.2 M/mm3 Low RBC 4.24 LAB L100.1300 13.0-16.5 g/dl Normal HGB 14.0 LAB L100.1400 40-54 % Normal HCT 41.2 LAB L100.1500 80-94 fL High MCV 97.2 LAB L100.1600 27.0-32.0 pg High MCH 33.0 LAB L100.1700 32-36 g/gl Normal MCHC 34.0 LAB L100.1810 11.6-14.6 % Normal RDW CV 13.0 LAB L100.1820 35.1-43.9 fl High RDW SD 45.9 LAB L100.1900 150-450 K/mm3 Normal PLT 212 LAB L100.2000 6.2-12.0 fl Normal MPV 10.1 Performed By: #### L100.0500 #### [facility] [address] [place], [place], [address] BASIC METABOLIC Collected: 10/12/2018 Status: F Source: CLAUDINE PROFILE (BMP) 12:00 PM [facility] REPOSITORY Order Comment: Comments: To be done in PACU TYPE CODE TESTS RESULT OUT OF RANGE REFERENCE UNITS LAB L501.0100 74-106 mg/dL Normal GLU 106 Result Comment: Fasting Glucose result from 100 to 125 mg/dL suggests IMPAIRED HOMEOSTASIS per A.D.A. criteria. Please note revised GLUCOSE reference range effective 2017. LAB L501.1000 7-18 mg/dL Normal BUN 14 LAB L501.1100 0.70-1.30 mg/dL Normal CREAT,SERUM 1.03 Result Comment: The validity of the calculated GFR AND GFRAA in patients over 70 years has not been determined. Clinical correlation is essential. LAB L501.1110 >60 mL/min Normal EST GFR 77 Result Comment: Non- GFR Calc LAB L501.1115 >60 mL/min Normal EST GFR - AA 93 Result Comment: GFR Calc LAB L501.1255 ml/min Normal Estimated CRCL 73.83 LAB L501.1300 10-20 RATIO Normal BUN/CRE 13.6 LAB L501.2200 8.5-10 mg/dL Low .1 CA 8.0 LAB L501.5300 136-14 mmol/L Normal 5 NA 141 LAB L501.5600 3.5-5. mmol/L Normal 1 K 4.2 LAB L501.5900 98-107 mmol/L High CL 108 LAB L501.6100 21.0-3 mmol/L Normal 2.0 CO2 28.0 LAB L501.6200 5-15 Normal GAP 5 Performed By: #### L500.2500 #### [facility] [address] [facility] [place], [address] OPERATIVE REPORT Observed: 10/12/2018 Status: F Source: MARION 11:19 AM [facility] REPOSITORY [facility] Medical Records Department [address] [place] [address] Operative Report 10/12/18 1115 MR#: [id number] Acct: [id number] Name: SACHIN ANDREWS Rep #: [id number] : 1955 63 From: Willi Mojica DO PCP: [place] Status: ADM IN Y [place] [id number] Operative Report Date of Procedure: 10/12/18 Primary Surgeon/Physician: Willi Mojica global recruiter: Hiro Ornelas PA-C global recruiter: Pre-Operative Diagnosis: OA right knee Post-Operative Diagnosis: same Surgery/Procedure Performed: Right TKR Estimated Blood Loss: 50cc Specimen's Removed: bone Type of Anesthesia: spinal ASA Class: 2 Implants: [Striker size 6 CR femur, size 6 tibia, 38 mm patella, 9 mm poly (all components cemented) ] Indications: Patient has severe end-stage osteoarthritis diagnosed via x-rays in the knee. They have failed all forms of conservative measures including activity modification, injections, anti-inflammatories, use of assistive device. The patient has pain that affects on a daily basis and prevents him from doing things that they enjoyed. They have elected to undergo the above procedure. The risks of the procedure were discussed at length and their questions were answered. Procedure Description: The patient was greeted in the preoperative area. The [right ] knee was then marked with a surgical marker. Patient was then taken to or [address]. They were administered a dose of antibiotics as well as tranexamic acid. Once adequate anesthesia was obtained and airway was secured to placed in supine position on the operating room table. A well-padded tourniquet was placed on the affected extremity. Leg was then prepped and draped in the usual sterile fashion from the knee down. Ioban was used on the skin. Surgical timeout was then performed and confirmed with all present. Six-inch Esmarch was used to examine the limb and tourniquet was then inflated to 250 mmHg. A longitudinal incision was then planned and carried out in the anterior aspect of the knee. The dissection was then carried the length of the incision the extensor mechanism was identified. Standard medial parapatellar arthrotomy was then performed revealing severe eburnation of bone and periarticular osteophytes. There is complete loss of cartilage especially in the medial compartment with varus alignment. Anterior fat pad was removed for visualization purposes and the anterior medial aspect of the tibia was skeletonized for exposure to the knee. The knee was then flexed the patella was inverted. Opening reamer was then used in the femur approximately 1 cm anterior to the attachment of the PCL. The intramedullary valgus wand was then placed in the femur set at 5 of valgus. The distal femoral cutting jig was then applied to the femur with anticipated resection of approximately 8 mm. This was then made with a oscillating saw. The sizing guide was then placed referencing off the posterior condyles and also reference off the epicondylar axis. This was measured and the appropriate size 4-in-1 cutting jig was then applied to the distal femur. Anterior posterior cuts were made followed by the anterior and posterior chamfer cuts. These bony pieces and fragments were removed and placed on the back table. Posterior retractor was then utilized and the tibia was subluxed anteriorly. Extramedullary tibial alignment jig was then applied to the tibia referencing off the medial one third of the tibial tubercle the anterior tibial spine the middle aspect of the tibiotalar joint. Also reference off patient's [place]. The tibial cutting jig was then pinned with anticipated resection of 2 mm off of the deficient medial tibial condyle. This cut was made with the oscillating saw. Once this was complete a laminar forging engineer was utilized in both medial lateral meniscus were removed and a posterior capsular osteophytes were also removed. Posterior capsule release was performed in the posterior capsule as well as the geniculate arteries are treated with the aqua Roemlia. The tibia was incised and the appropriate sized tibial tray was then pinned. The femoral trial was then placed and the knee was trialed. Full flexion-extension were easily achieved. The knee seemed to balance quite nicely. Any remaining osteophytes were removed at this time. Once this was complete the patella was everted and the Nilam patella reaming device was then utilized the patella was then placed in the appropriate jig and reamer was then used to remove approximately 9 mm of the undersurface of the patella. A soft tissue remaining was in the way was removed and patella trial was then placed listed maintain excellent tracking using the no thumbs technique. The tibial tray at this point was punched to accommodate the fins of the final implant. At this point cement was mixed on the back table. The trial components were removed and the knee was copiously irrigated. Did use a cocktail of injection for postoperative pain control. The final components were then cemented in the standard fashion and excess cement was removed with cement removal tools and patellar clamp is placed in the patella. As the cement had cured in full extension tourniquet was deflated and hemostasis was perfect with Bovie cautery as well as the aqua Manus. Needle is once again trialed with different size polyethylenes to ensure the full range of motion was achieved as well as excellent balancing ligamentously was achieved. At this point the knee was copiously irrigated. Final implant was then inserted locking mechanism was engaged and confirmed to be locked. The arthrotomy was then closed with #1 Vicryl aggravate type fashion interrupted. Subcutaneous tissue was closed with 0 Vicryl and surgical leon were placed in the skin. A occlusive silver impregnated dressing was then applied followed by well-padded sterile dressing secured with an Giovanni wrap. The patient was taken to the PACU in stable condition. No complications known at this time. Postoperatively we will maintain standard total knee postoperative protocol. The use of the physician senior sales assistant was integral during this procedure. They assisted with positioning placement of the tourniquet retracting closure and placement of the dressing. The procedure would have been much more difficult without their expertise and assistance 10/12/18 1119 <Electronically signed by Willi Mojica DO> Date Willi Mojica DO CC: [facility]; Willi Mojica DO Signed TOTAL KNEE REPLACEMENT Observed: 10/12/2018 Status: F Source: [place] 12:00 AM [facility] REPOSITORY Patient: SACHIN ANDREWS : 1955 (63/M) Acct Num: [id number] Phys: Willi Mojica DO Unit Num: [id number] Loc: MS3 BC121-6 Specimen: [id number] Received: 10/12/18 - 1347 Spec Type: TOTAL KNEE TISSUES 1 TISSUES: Knee, NOS GROSS DESCRIPTION Received is one container designated bone and soft tissue right knee. The specimen consists of multiple fragments of kuo-yellow bone measuring in aggregate 11 x 8 x 4 cm. No soft tissue is identified. A number of bony fragments contain articular surfaces consistent with tibial plateau and femoral condyle and displaying prominent osteophyte formation, eburnation and bone erosion. Gambling Cashier sections are submitted in one cassette after decalcification. / Ronald 10/12/18 TC:5 CPT: 62629, 48228 HEADER OPERATION: Total knee replacement PRE-OP DIAGNOSIS: Osteoarthritis right knee TISSUE SUBMITTED: Bone and soft tissue MICROSCOPIC DESCRIPTION Slides are reviewed. MICROSCOPIC DIAGNOSIS Bone and soft tissue, right knee, total knee replacement/resection: Pieces of bone with degenerative osteoarthritic changes. IRENE:basilio 10/16/18 Signed Ivan Up 10/16/18 <signature on file> Performed By: #### PKTEJASE #### [facility] [address] [place], [address] PROGRESS Observed: 10/08/2018 Status: COMPLETED Source: [place] 4:27 PM [facility] REPOSITORY HNO ID: [id number] Author: Jay Ovalles Service: (none) Author Type: Physician Type: Progress Notes Filed: 10/08/2018 10:10 PM Note Text: ESTABLISHED PATIENT Sachin Andrews is a 63 year old male presenting for No chief complaint on file.. HISTORY OF PRESENT ILLNESS Pre-op Evaluation Surgery: Right total knee arthroplasty Surgeon: Dr. Willi Mojica Date: 10/12/18 Type of anesthesia: Local Hx of CAD: Had UT but related to drug reaction. No stent. Had stress test in 2013 which was normal at [facility]. Very remote history of tobacco. Able to perform 4 Mets: Yes Chest pain: No On blood thinner: Has stopped taking aspirin, aleve, etc. Hx of ELAYNE: Yes. Doesn't use. Hx of breathing issues: No Hx of diabetes: No Pre-op testing: Patient had testing performed at [facility]. Notes lab work and EKG. HISTORIES FAMILY HISTORY Problem Relation Age of Onset - Stroke Mother - other (CHF) Mother - other (lung ca) Father - Diabetes Brother PAST MEDICAL HISTORY Diagnosis Date - Abdominal pain, generalized - Acute UT (HCC) 07/2013 [facility] (Dr.Brian Sharp,cardiol) - Allergy - Chronic hepatitis C (HCC) - H/O exercise stress test 08/30/13 [facility] [place] - History of cardiac cath 07/2013 [facility] - Osteoarthritis - Other specified idiopathic peripheral neuropathy - Raynaud's syndrome - Rheumatoid arthritis(714.0) pt. states PAST SURGICAL HISTORY Procedure Laterality Date - COLONOSCOP W/ OR W/O BRSH SPEC 01/19/09 - PAST SURGICAL HISTORY OF right knee total revision - PAST SURGICAL HISTORY OF right foot fasca repair - PAST SURGICAL HISTORY OF reattachment left thumb - PAST SURGICAL HISTORY OF left small finger tendon and ligiment repair - PAST SURGICAL HISTORY OF left rotator cuff repair - REPAIR ING HERNIA,5+Y/O,REDUCIBL right Hernia repair, inguinal - REPAIR ROTATOR CUFF,ACUTE right 09/2006 Rotator cuff repair Social History Marital status: Spouse name: Years of education: Number of children: Social History Main Topics Smoking status: Former Smoker Packs/day: 0.00 Years: 0.00 Types: Cigarettes Quit date: 11/24/1975 Smokeless tobacco: Never Used Comment: past use of medical marijuana Alcohol use: Yes Comment: rarely, 2 drinks per month Drug use: No Comment: history of occasional marijuana use Allergies: ALLERGIES Allergen Reactions - Environmental [Othe* tree pollen causes itchy eyes and sneezing Medications: amphetamine-dextroamphetamine XR (ADDERALL XR) 20 mg 24 hr capsule Take 1 capsule by mouth once daily for 30 days.Earliest Fill Date: 10/02/18 traMADol (ULTRAM) 50 mg tablet Take 1 tablet by mouth at bedtime as needed for Pain for up to 30 days. potassium (POTASSIMIN ORAL) Take by mouth. aspirin, enteric coated (ASPIR-LOW) 81 mg EC tablet Take 1 tablet by mouth once daily. omeprazole (PRILOSEC) 20 mg capsule Take 20 mg by mouth once daily. BIPAP BIPAP 11/5 cmH2O, suitable mask, tubing, humidifier, filters. Lifetime supplies. Dx: 327.23 - Obstructive sleep apnea. Please fax compliance report to [phone] in 6-8 wks. loperamide (IMODIUM) 2 mg cap(s) Take 2 mg by mouth four times daily as needed. FOLIC ACID ORAL Take by mouth. losartan (COZAAR) 50 mg tablet Take 50 mg by mouth once daily. atorvastatin (LIPITOR) 80 mg tablet Take 80 mg by mouth once daily. MAGNESIUM ORAL Take 50 mg by mouth. multivitamin tablet Take 1 tablet by mouth once daily. VITAMIN B COMPLEX (B COMPLEX 1 ORAL) Take by mouth. GLUC/CHND/OM3/DHA/EPA/FISH/STR (GLUCOSAMINE CHONDROITIN PLUS ORAL) Take by mouth. fluticasone (FLONASE) 50 mcg/actuation nasal spray Use 1 [place] in each nostril daily at bedtime. before lying down. albuterol HFA (VENTOLIN HFA) 90 mcg/actuation inhaler Inhale 2 Puffs as instructed every 4 hours as needed for Wheezing/Shortness of Breath. LACTOBACILLUS ACIDOPHILUS (PROBIOTIC ORAL) Take by mouth once daily. gabapentin (NEURONTIN) 600 mg tablet Take 1 tablet by mouth three times daily. REVIEW OF SYSTEMS GENERAL: No weight loss, malaise or fevers. RESPIRATORY: Negative for cough, hemoptysis, wheezing or shortness of breath. CARDIOVASCULAR: Negative for chest pain, leg swelling or palpitations. All other systems reviewed and negative other than HPI. PHYSICAL EXAM BP 131/88 Pulse 78 Temp 36.9 ?C (98.4 ?F) (Oral) Resp 18 Ht 177.8 cm (5' 10) Wt 97.2 kg (214 lb 3.2 oz) SpO2 98% BMI 30.73 kg/m? General: Well developed, well nourished, in no acute distress. Head: Normocephalic, atraumatic. Neck: Supple. Eyes: Normal conjunctiva, no scleral icterus. Lungs: Clear to auscultation bilaterally, no rubs, no wheezing. Cardiac: Regular rate and rhythm. No murmurs, gallops, or rubs. Extremities: No edema. ASSESSMENT/PLAN: 1. Arthritis of right knee - ICD9: 716.96, ICD10: M17.11 Patient is optimized for surgery if EKG and lab work is appropriate. Jay Ovalles MD CNOV Observed: 10/08/2018 Status: COMPLETED Source: [place] 4:00 PM [facility] REPOSITORY Office Visit ([facility]) SACHIN ANDREWS ([id number]) 1955 M Date Time Provider Department 10/08/18 4:00 PM JAY OVALLES [facility] During your visit today, we recorded the following information about you: Temperature Pulse Respiration Blood pressure 98.4 degrees 78/minute 18/minute 131/88 Weight Height 97.2 kg 1.778 m Prateek Galvanbrian 10/08/2018 3:57 PM Signed [facility] - LAB TEST INFORMATION HOURS: 7 am to 6 pm Friday ? Friday, 7 am -12 pm on Friday. The lab is located in [facility] on the first floor. There is a registration window at the lab, available 7 am to 3 pm Friday ? Friday. If registration is unavailable at the lab, you may register at the patient registration office near the front lobby of the hospital. ROUTINE ORDERS 60 days after they are entered. If you arrive for your lab testing after the orders have , you may be required to wait in the lab while they are reinstated. FUTURE ORDERS are lab tests to be completed on or after an ?expected? future date. These orders 60 days after the expected date. STANDING ORDERS are recurring orders with an expiration date. The interval will indicate how often the test should be completed. FASTING means nothing to eat or drink (except water) 10-12 hours before your blood is drawn. CT / MRI / IVP If you have lab tests ordered for one of these radiology exams, please complete the blood work at least one day prior to the scheduled exam. PRESCRIPTION REFILL REQUESTS Request prescription refills through your [employer] account or contact your Pharmacy. Prateek Grigsby 10/08/2018 10:10 PM Signed BP CONTROLLED (<130/80) due on 1971 LDL CHOLESTEROL due on 01/14/2018 INFLUENZA(1) due on 07/25/2018 ABDOMINAL AORTIC ANEURYSM SCREENING TOPIC due on 2018 ADULT PREVNAR-13 due on 2018 PNEUMOVAX AGE 65 AND OVER WITH 5YR LOOKBACK(1) due on 2018 Jay Ovalles MD 10/08/2018 10:10 PM Signed ESTABLISHED PATIENT Sachin Andrews is a 63 year old male presenting for No chief complaint on file.. HISTORY OF PRESENT ILLNESS Pre-op Evaluation Surgery: Right total knee arthroplasty Surgeon: Dr. Willi Mojica Date: 10/12/18 Type of anesthesia: Local Hx of CAD: Had UT but related to drug reaction. No stent. Had stress test in 2013 which was normal at [facility]. Very remote history of tobacco. Able to perform 4 Mets: Yes Chest pain: No On blood thinner: Has stopped taking aspirin, aleve, etc. Hx of ELAYNE: Yes. Doesn't use. Hx of breathing issues: No Hx of diabetes: No Pre-op testing: Patient had testing performed at [facility]. Notes lab work and EKG. HISTORIES FAMILY HISTORY Problem Relation Age of Onset - Stroke Mother - other (CHF) Mother - other (lung ca) Father - Diabetes Brother PAST MEDICAL HISTORY Diagnosis Date - Abdominal pain, generalized - Acute UT (HCC) 07/2013 [facility] (Dr.Brian Sharp,cardiol) - Allergy - Chronic hepatitis C (HCC) - H/O exercise stress test 08/30/13 [facility] [place], [facility] - History of cardiac cath 07/2013 [facility] - Osteoarthritis - Other specified idiopathic peripheral neuropathy - Raynaud's syndrome - Rheumatoid arthritis(714.0) pt. states PAST SURGICAL HISTORY Procedure Laterality Date - COLONOSCOP W/ OR W/O BRSH SPEC 01/19/09 - PAST SURGICAL HISTORY OF right knee total revision - PAST SURGICAL HISTORY OF right foot fasca repair - PAST SURGICAL HISTORY OF reattachment left thumb - PAST SURGICAL HISTORY OF left small finger tendon and ligiment repair - PAST SURGICAL HISTORY OF left rotator cuff repair - REPAIR ING HERNIA,5+Y/O,REDUCIBL right Hernia repair, inguinal - REPAIR ROTATOR CUFF,ACUTE right 09/2006 Rotator cuff repair Social History Marital status: Spouse name: Years of education: Number of children: Social History Main Topics Smoking status: Former Smoker Packs/day: 0.00 Years: 0.00 Types: Cigarettes Quit date: 11/24/1975 Smokeless tobacco: Never Used Comment: past use of medical marijuana Alcohol use: Yes Comment: rarely, 2 drinks per month Drug use: No Comment: history of occasional marijuana use Allergies: ALLERGIES Allergen Reactions - Environmental [Othe* tree pollen causes itchy eyes and sneezing Medications: amphetamine-dextroamphetamine XR (ADDERALL XR) 20 mg 24 hr capsule Take 1 capsule by mouth once daily for 30 days.Earliest Fill Date: 10/02/18 traMADol (ULTRAM) 50 mg tablet Take 1 tablet by mouth at bedtime as needed for Pain for up to 30 days. potassium (POTASSIMIN ORAL) Take by mouth. aspirin, enteric coated (ASPIR-LOW) 81 mg EC tablet Take 1 tablet by mouth once daily. omeprazole (PRILOSEC) 20 mg capsule Take 20 mg by mouth once daily. BIPAP BIPAP 11/5 cmH2O, suitable mask, tubing, humidifier, filters. Lifetime supplies. Dx: 327.23 - Obstructive sleep apnea. Please fax compliance report to [phone] in 6-8 wks. loperamide (IMODIUM) 2 mg cap(s) Take 2 mg by mouth four times daily as needed. FOLIC ACID ORAL Take by mouth. losartan (COZAAR) 50 mg tablet Take 50 mg by mouth once daily. atorvastatin (LIPITOR) 80 mg tablet Take 80 mg by mouth once daily. MAGNESIUM ORAL Take 50 mg by mouth. multivitamin tablet Take 1 tablet by mouth once daily. VITAMIN B COMPLEX (B COMPLEX 1 ORAL) Take by mouth. GLUC/CHND/OM3/DHA/EPA/FISH/STR (GLUCOSAMINE CHONDROITIN PLUS ORAL) Take by mouth. fluticasone (FLONASE) 50 mcg/actuation nasal spray Use 1 [place] in each nostril daily at bedtime. before lying down. albuterol HFA (VENTOLIN HFA) 90 mcg/actuation inhaler Inhale 2 Puffs as instructed every 4 hours as needed for Wheezing/Shortness of Breath. LACTOBACILLUS ACIDOPHILUS (PROBIOTIC ORAL) Take by mouth once daily. gabapentin (NEURONTIN) 600 mg tablet Take 1 tablet by mouth three times daily. REVIEW OF SYSTEMS GENERAL: No weight loss, malaise or fevers. RESPIRATORY: Negative for cough, hemoptysis, wheezing or shortness of breath. CARDIOVASCULAR: Negative for chest pain, leg swelling or palpitations. All other systems reviewed and negative other than HPI. PHYSICAL EXAM BP 131/88 Pulse 78 Temp 36.9 ?C (98.4 ?F) (Oral) Resp 18 Ht 177.8 cm (5' 10) Wt 97.2 kg (214 lb 3.2 oz) SpO2 98% BMI 30.73 kg/m? General: Well developed, well nourished, in no acute distress. Head: Normocephalic, atraumatic. Neck: Supple. Eyes: Normal conjunctiva, no scleral icterus. Lungs: Clear to auscultation bilaterally, no rubs, no wheezing. Cardiac: Regular rate and rhythm. No murmurs, gallops, or rubs. Extremities: No edema. ASSESSMENT/PLAN: 1. Arthritis of right knee - ICD9: 716.96, ICD10: M17.11 Patient is optimized for surgery if EKG and lab work is appropriate. Jay Ovalles MD Referring Provider: SELF [[id number]] Allergies As of Date: 10/08/2018 Noted Allergy Reaction environmental [Other] 02/10/2008 Comments: tree pollen causes itchy eyes and sneezing Date Reviewed: 10/08/2018 Reviewed by: Prateek Lequay - Fully Assessed Primary Visit Diagnosis:Arthritis of right knee [M17.11] Prescriptions as of 10/08/2018 Sig: DEXTROAMPHETAMINE-AMPHETAMINE* Take 1 capsule by mouth once * TRAMADOL 50 MG TABLET Take 1 tablet by mouth at bed* POTASSIMIN ORAL Take by mouth. ASPIRIN 81 MG TABLET,DELAYED * Take 1 tablet by mouth once d* OMEPRAZOLE 20 MG CAPSULE,ZANE* Take 20 mg by mouth once edgardo* BIPAP BIPAP 11/5 cmH2O, suitable m* LOPERAMIDE 2 MG CAPSULE Take 2 mg by mouth four times* FOLIC ACID ORAL Take by mouth. LOSARTAN 50 MG TABLET Take 50 mg by mouth once edgardo* ATORVASTATIN 80 MG TABLET Take 80 mg by mouth once edgardo* MAGNESIUM ORAL Take 50 mg by mouth. MULTIVITAMIN TABLET Take 1 tablet by mouth once d* B COMPLEX 1 ORAL Take by mouth. GLUCOSAMINE CHONDROITIN PLUS * Take by mouth. FLUTICASONE 50 MCG/ACTUATION * Use 1 [place] in each nostril d* ALBUTEROL SULFATE HFA 90 MCG/* Inhale 2 Puffs as instructed * PROBIOTIC ORAL Take by mouth once daily. GABAPENTIN 600 MG TABLET Take 1 tablet by mouth three * Problem List As Of Date 10/08/2018 Noted Resolved Peripheral neuropathy (HCC) [G62.9] INVALID FOR* Priority: F More... Chronic rhinitis [J31.0] INVALID FOR*05/07/2015 DEPRESSIVE DISORDER NEC [F32.9] INVALID FOR* Persistent disorder of initiating or maintainin*INVALID FOR*05/07/2015 Chronic hepatitis C without mention of hepatic *INVALID FOR*11/19/2016 Loss of weight [R63.4] INVALID FOR*05/07/2015 CHRONIC PAIN NEC [G89.29] INVALID FOR*05/07/2015 More... ELAYNE (obstructive sleep apnea) [G47.33] INVALID FOR* More... 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 Small fiber neuropathy [G62.9] INVALID FOR*05/07/2015 Lumbar pain [M54.5] INVALID FOR*05/07/2015 CAD (coronary artery disease) [I25.10] INVALID FOR* Priority: D More... Chronic pain [G89.29] INVALID FOR*02/11/2014 Eustachian tube dysfunction [H69.80] INVALID FOR*05/07/2015 Serous otitis media [H65.90] INVALID FOR*05/07/2015 Controlled substance agreement signed [Z79.899] INVALID FOR*01/14/2017 HTN (hypertension) [I10] INVALID FOR* Priority: E More... Drug abuse [F19.10] INVALID FOR*01/14/2017 Marijuana dependence (HCC) [F12.20] INVALID FOR*01/14/2017 Near syncope [R55] INVALID FOR*01/14/2017 Priority: A More... KENRICK (acute kidney injury) (HCC) [N17.9] INVALID FOR*01/14/2017 Priority: B More... Chest pain [R07.9] INVALID FOR*01/14/2017 Priority: C More... Chronic left shoulder pain [M25.512, G89.29] INVALID FOR* Attention deficit hyperactivity disorder (ADHD)*INVALID FOR* Chronic pain [G89.29] INVALID FOR* Adjustment disorder with mixed anxiety and depr*INVALID FOR* Other instructions from your clinician: [facility] - LAB TEST INFORMATION HOURS: 7 am to 6 pm Friday ? Friday, 7 am -12 pm on Friday. The lab is located in [facility] on the first floor. There is a registration window at the lab, available 7 am to 3 pm Friday ? Friday. If registration is unavailable at the lab, you may register at the patient registration office near [facility]. ROUTINE ORDERS 60 days after they are entered. If you arrive for your lab testing after the orders have , you may be required to wait in the lab while they are reinstated. FUTURE ORDERS are lab tests to be completed on or after an ?expected? future date. These orders 60 days after the expected date. STANDING ORDERS are recurring orders with an expiration date. The interval will indicate how often the test should be completed. FASTING means nothing to eat or drink (except water) 10- 12 hours before your blood is drawn. CT / MRI / IVP If you have lab tests ordered for one of these radiology exams, please complete the blood work at least one day prior to the scheduled exam. PRESCRIPTION REFILL REQUESTS Request prescription refills through your [employer] account or contact your Pharmacy. Disposition: Return in about 3 months (around 01/08/2019). Follow-up and Disposition History Recorded Encounter Status:Closed by JAY OVALLES MD on 10/08/18 PROGRESS Observed: 10/08/2018 Status: COMPLETED Source: [place] 3:57 PM [facility] REPOSITORY O ID: [id number] Author: Prateek Grigsby Service: (none) Author Type: (none) Type: Progress Notes Filed: 10/08/2018 10:10 PM Note Text: BP CONTROLLED (<130/80) due on 1971 LDL CHOLESTEROL due on 01/14/2018 INFLUENZA(1) due on 07/25/2018 ABDOMINAL AORTIC ANEURYSM SCREENING TOPIC due on 2018 ADULT PREVNAR-13 due on 2018 PNEUMOVAX AGE 65 AND OVER WITH 5YR LOOKBACK(1) due on 2018 12 LEAD ELECTROCARDIOGRAM Observed: 10/05/2018 Status: F Source: [place] 2:35 PM [facility] REPOSITORY [facility] Cardiovascular Services [address] [place] [address] EKG - [facility] 09/29/18 1502 MR#: [id number] Acct: [id number] Name: SACHIN ANDREWS Rep #: [id number] : 1955 63 From: Yair Durant MD Attending Dr: Willi Mojica DO Status: PRE IN Ordering Dr: Anabelle Christy MD Date: 09/29/18 Location: [facility] Sex: M C Admitted: Test Reason : Blood Pressure : / mmHG Vent. Rate : 071 BPM Atrial Rate : 071 BPM P-R Int : 234 ms QRS Dur : 106 ms QT Int : 386 ms P-R-T Axes : 051 016 039 degrees QTc Int : 419 ms Sinus rhythm with 1st degree A-V block Low voltage QRS Borderline ECG Confirmed by YAIR DURANT ([id number]), editor department DANII TA ([id number]) on 10/05/2018 2:34:55 PM Referred By: Willi Mojica Confirmed By:YAIR DURANT 10/05/18 8212 Date Yair Durant MD CC: Anabelle Christy MD; [facility]; Willi Mojica Date Dictated: 09/29/18 150 Date Transcribed: 09/29/181501 Contract Engineer: Signed CBC W/DIFF, AUTOMATED Collected: 09/29/2018 Status: F Source: [place] 3:10 PM [facility] REPOSITORY TYPE CODE TESTS RESULT OUT OF RANGE REFERENCE UNITS LAB L100.1000 4.4-11.0 K/mm3 Normal WBC 7.5 LAB L100.1200 4.6-6.2 M/mm3 Normal RBC 4.64 LAB L100.1300 13.0-16.5 g/dl Normal HGB 15.3 LAB L100.1400 40-54 % Normal HCT 45.5 LAB L100.1500 80-94 fL High MCV 98.1 LAB L100.1600 27.0-32.0 pg High MCH 33.0 LAB L100.1700 32-36 g/gl Normal MCHC 33.6 LAB L100.1810 11.6-14.6 % Normal RDW CV 13.1 LAB L100.1820 35.1-43.9 fl High RDW SD 47.1 LAB L100.1900 150-450 K/mm3 Normal PLT 259 LAB L100.2000 6.2-12.0 fl Normal MPV 10.3 LAB L100.2100 47-70 % Normal NEUT% 64.9 LAB L100.2200 19-41 % Normal LY% 19.8 LAB L100.2300 0-10 % Normal MONO% 6.7 LAB L100.2400 0-5 % High EO% 7.5 LAB L100.2500 0-1 % Normal BASO% 0.8 LAB L100.2550 0.0-0.9 % Normal IM GRAN % 0.300 Result Comment: IG% - Immature Granulocytes (promyelocytes, myelocytes and metamyelocytes) > 1% indicates that a LEFT SHIFT is Present. LAB L100.2620 2.0-7.7 X10 3/uL Normal Absolute Neut 4.9 LAB L100.2720 0.83-4.51 X10 3/ul Normal Absolute Lymph 1.48 Performed By: #### L100.0100 #### [facility] [address] [facility] [place], [address] BASIC METABOLIC Collected: 09/29/2018 Status: F Source: [place] PROFILE (BMP) 3:10 PM [facility] REPOSITORY TYPE CODE TESTS RESULT OUT OF RANGE REFERENCE UNITS LAB L501.0100 74-106 mg/dL Normal GLU 85 Result Comment: Please note revised GLUCOSE reference range effective 2017. LAB L501.1000 7-18 mg/dL Normal BUN 14 LAB L501.1100 0.70-1.30 mg/dL Normal CREAT,SERUM 0.99 Result Comment: The validity of the calculated GFR AND GFRAA in patients over 70 years has not been determined. Clinical correlation is essential. LAB L501.1110 >60 mL/min Normal EST GFR 81 Result Comment: Non- GFR Calc LAB L501.1115 >60 mL/min Normal EST GFR - AA 98 Result Comment: GFR Calc LAB L501.1255 ml/min Normal Estimated CRCL 76.81 LAB L501.1300 10-20 RATIO Normal BUN/CRE 14.2 LAB L501.2200 8.5-10 mg/dL Normal .1 CA 8.8 LAB L501.5300 136-14 mmol/L Normal 5 NA 138 LAB L501.5600 3.5-5. mmol/L Normal 1 K 4.5 LAB L501.5900 98-107 mmol/L Normal CL 104 LAB L501.6100 21.0-3 mmol/L Normal 2.0 CO2 30.0 LAB L501.6200 5-15 Low GAP 4 Performed By: #### L500.2500 #### [facility] [address], [address] Observed: 09/29/2018 Status: F Source: [place]UD[place] MRSA/SAID SCREEN 3:10 PM [facility] REPOSITORY MRSA/SAID SCRN S. AUREUS S. aureus Positive MRSA MRSA Negative Performed By: #### M100.651 #### [facility] [address], [address] CNOV Observed: 06/19/2018 Status: COMPLETED Source: [place] 2:40 PM [facility] REPOSITORY Office Visit (IMMDNA) SACHIN ANDREWS ([id number]) 1955 M Date Time Provider Department 06/19/18 2:40 PM JAY OVALLES [facility] During your visit today, we recorded the following information about you: Pulse Blood pressure Weight Height 79/minute 138/80 98 kg 1.829 m Jay Ovalles MD 06/19/2018 1:40 PM Signed ESTABLISHED PATIENT Sachin Andrews is a 62 year old male presenting for Follow Up. HISTORY OF PRESENT ILLNESS Chronic Stimulant Use Used for: ADHD Medication: Adderrall XR 20mg Pills per day: One pill per day Improves symptoms: Yes concentration is improved. Chronic Narcotic Pain Medication Medication: Tramadol 50 Used for: Lumbar Stenosis and cervical arthritis pain Improves quality of life/pain: Yes Amount used per day: 1 at night Pain Scale before medication: 7 After medication: 2 What functional abilities improve with pain medication: Allows patient to sleep. Otherwise is unable to get comfortable. Without sleep patient is unable to do job Does patient have an opiate/pain contract?: No Non-pharmacologic therapies tried (i.e. PT): PT, Ice heat History of substance abuse?: No longer uses THC If patient is on benzo/muscle relaxer aware of potential sedation: No Concern for addiction: No Non-opioid treatment options: Yes Gabapentin Counseled on safe storage and disposal: Yes Counseled on opioid and alcohol: Yes OARRS being performed: Yes Urine drug screen: Normal in Sep 2017 Hypertension Follow up Medication Adherence: no missed doses and took medications this morning Home monitoring: no Heart palpitations: no Chest pain: no Weakness, numbness, tingling: no Last 3 Encounter BP Readings: Date: BP: 06/19/2018 138/80 03/20/2018 136/80 12/22/2017 128/80 HISTORIES FAMILY HISTORY Problem Relation Age of Onset - Stroke Mother - CHF [OTHER] Mother - lung ca [OTHER] Father - Diabetes Brother PAST MEDICAL HISTORY Diagnosis Date - Abdominal pain, generalized - Acute UT (HCC) 07/2013 [facility] (Dr.Brian Sharp,cardiol) - Allergy - Chronic hepatitis C (HCC) - H/O exercise stress test 08/30/13 [facility], [place], [facility] - History of cardiac cath 07/2013 [facility] - Osteoarthritis - Other specified idiopathic peripheral neuropathy - Raynaud's syndrome - Rheumatoid arthritis(714.0) pt. states PAST SURGICAL HISTORY Procedure Laterality Date - COLONOSCOP W/ OR W/O BRSH SPEC 01/19/09 - PAST SURGICAL HISTORY OF right knee total revision - PAST SURGICAL HISTORY OF right foot fasca repair - PAST SURGICAL HISTORY OF reattachment left thumb - PAST SURGICAL HISTORY OF left small finger tendon and ligiment repair - PAST SURGICAL HISTORY OF left rotator cuff repair - REPAIR ING HERNIA,5+Y/O,REDUCIBL right Hernia repair, inguinal - REPAIR ROTATOR CUFF,ACUTE right 09/2006 Rotator cuff repair Social History Marital status: Spouse name: Years of education: Number of children: Social History Main Topics Smoking status: Former Smoker Packs/day: 0.00 Years: 0.00 Types: Cigarettes Quit date: 11/24/1975 Smokeless tobacco: Never Used Comment: past use of medical marijuana Alcohol use: Yes Comment: rarely, 2 drinks per month Drug use: No Comment: history of occasional marijuana use Allergies: ALLERGIES Allergen Reactions - Environmental [Othe* tree pollen causes itchy eyes and sneezing Medications: potassium (POTASSIMIN ORAL) Take by mouth. amphetamine-dextroamphetamine XR (ADDERALL XR) 20 mg 24 hr capsule Take 1 capsule by mouth once daily for 30 days.Earliest Fill Date: 05/29/18 traMADol (ULTRAM) 50 mg tablet Take 1 tablet by mouth at bedtime as needed for Pain for up to 30 days. aspirin, enteric coated (ASPIR-LOW) 81 mg EC tablet Take 1 tablet by mouth once daily. omeprazole (PRILOSEC) 20 mg capsule Take 20 mg by mouth once daily. loperamide (IMODIUM) 2 mg cap(s) Take 2 mg by mouth four times daily as needed. FOLIC ACID ORAL Take by mouth. losartan (COZAAR) 50 mg tablet Take 50 mg by mouth once daily. atorvastatin (LIPITOR) 80 mg tablet Take 80 mg by mouth once daily. MAGNESIUM ORAL Take 50 mg by mouth. multivitamin tablet Take 1 tablet by mouth once daily. VITAMIN B COMPLEX (B COMPLEX 1 ORAL) Take by mouth. fluticasone (FLONASE) 50 mcg/actuation nasal spray Use 1 [place] in each nostril daily at bedtime. before lying down. albuterol HFA (VENTOLIN HFA) 90 mcg/actuation inhaler Inhale 2 Puffs as instructed every 4 hours as needed for Wheezing/Shortness of Breath. LACTOBACILLUS ACIDOPHILUS (PROBIOTIC ORAL) Take by mouth once daily. gabapentin (NEURONTIN) 600 mg tablet Take 1 tablet by mouth three times daily. BIPAP BIPAP 11/5 cmH2O, suitable mask, tubing, humidifier, filters. Lifetime supplies. Dx: 327.23 - Obstructive sleep apnea. Please fax compliance report to [phone] in 6-8 wks. GLUC/CHND/OM3/DHA/EPA/FISH/STR (GLUCOSAMINE CHONDROITIN PLUS ORAL) Take by mouth. REVIEW OF SYSTEMS GENERAL: No weight loss, malaise or fevers. RESPIRATORY: Negative for cough, hemoptysis, wheezing or shortness of breath. CARDIOVASCULAR: Negative for chest pain, leg swelling or palpitations. All other systems reviewed and negative other than HPI. PHYSICAL EXAM BP 138/80 Pulse 79 Ht 182.9 cm (6') Wt 98 kg (216 lb) SpO2 97% BMI 29.29 kg/m? General: Well developed, well nourished, in no acute distress. Head: Normocephalic, atraumatic. Neck: Supple. Eyes: Normal conjunctiva, no scleral icterus. Lungs: Clear to auscultation bilaterally, no rubs, no wheezing. Cardiac: Regular rate and rhythm. No murmurs, gallops, or rubs. Extremities: No edema. ASSESSMENT/PLAN: 1. Spondylosis of lumbar region without myelopathy or radiculopathy - ICD9: 721.3, ICD10: M47.816 (primary diagnosis) COnt current meds - TRAMADOL 50 MG TABLET 2. Attention deficit disorder, unspecified hyperactivity presence - ICD9: 314.00, ICD10: F98.8 Cont current meds - DEXTROAMPHETAMINE-AMPHETAMINE ER 20 MG 24HR CAPSULE,EXTEND RELEASE 3. Essential hypertension - ICD9: 401.9, ICD10: I10 - good control - Recommended regular aerobic exercise. - Recommend home blood pressure monitoring, to bring results in on next visit Jay Ovalles MD PDMP website checked and validated. All prescriptions have been APPROPRIATELY filled. No suspicious activity was identified. 06/19/2018 by Jay Ovalles MD Referring Provider: JAY OVALLES [[id number]] Allergies As of Date: 06/19/2018 Noted Allergy Reaction environmental [Other] 02/10/2008 Comments: tree pollen causes itchy eyes and sneezing Date Reviewed: 06/19/2018 Reviewed by: Florinda Forde Ma - Fully Assessed Reason for Visit: Follow Up [171] Primary Visit Diagnosis:Spondylosis of lumbar region without myelopathy or radiculopathy [M47.816] Other Visit Diagnoses:Attention deficit disorder, unspecified hyperactivity presence [F98.8] Essential hypertension [I10] Order(s):[START ON 06/29/2018] traMADol (ULTRAM) 50 mg tabletTake 1 tablet by mouth at bedtime as needed for Pain for up to 30 days.Disp: 30 tabletRfl: 0 [START ON 06/29/2018] amphetamine-dextroamphetamine XR (ADDERALL XR) 20 mg 24 hr capsuleTake 1 capsule by mouth once daily for 30 days. Earliest Fill Date: 06/29/18Disp: 30 capsuleRfl: 0 Prescriptions as of 06/19/2018 Sig: POTASSIMIN ORAL Take by mouth. TRAMADOL 50 MG TABLET Take 1 tablet by mouth at bed* DEXTROAMPHETAMINE-AMPHETAMINE* Take 1 capsule by mouth once * ASPIRIN 81 MG TABLET,DELAYED * Take 1 tablet by mouth once d* OMEPRAZOLE 20 MG CAPSULE,ZANE* Take 20 mg by mouth once edgardo* LOPERAMIDE 2 MG CAPSULE Take 2 mg by mouth four times* FOLIC ACID ORAL Take by mouth. LOSARTAN 50 MG TABLET Take 50 mg by mouth once edgardo* ATORVASTATIN 80 MG TABLET Take 80 mg by mouth once edgardo* MAGNESIUM ORAL Take 50 mg by mouth. MULTIVITAMIN TABLET Take 1 tablet by mouth once d* B COMPLEX 1 ORAL Take by mouth. FLUTICASONE 50 MCG/ACTUATION * Use 1 [place] in each nostril d* ALBUTEROL SULFATE HFA 90 MCG/* Inhale 2 Puffs as instructed * PROBIOTIC ORAL Take by mouth once daily. GABAPENTIN 600 MG TABLET Take 1 tablet by mouth three * BIPAP BIPAP 11/5 cmH2O, suitable m* GLUCOSAMINE CHONDROITIN PLUS * Take by mouth. Medication notes this encounter ALBUTEROL SULFATE HFA 90 MCG/ACTUATION AEROSOL INHALER >> Florinda Forde Ma 06/19/2018 8:28 AM >> FLORINDA FORDE MA FriJun 19, 2018 8:28 AM prn BIPAP >> Florinda Forde Ma 06/19/2018 8:28 AM >> FLORINDA FORDE MA FriJun 19, 2018 8:28 AM Not using GLUCOSAMINE CHONDROITIN PLUS ORAL >> Florinda Forde Ma 06/19/2018 8:28 AM >> FLORINDA FORDE MA FriJun 19, 2018 8:28 AM Not taking Problem List As Of Date 06/19/2018 Noted Resolved Peripheral neuropathy (HCC) [G62.9] INVALID FOR* Priority: F More... Chronic rhinitis [J31.0] INVALID FOR*05/07/2015 DEPRESSIVE DISORDER NEC [F32.9] INVALID FOR* Persistent disorder of initiating or maintainin*INVALID FOR*05/07/2015 Chronic hepatitis C without mention of hepatic *INVALID FOR*11/19/2016 Loss of weight [R63.4] INVALID FOR*05/07/2015 CHRONIC PAIN NEC [G89.29] INVALID FOR*05/07/2015 More... ELAYNE (obstructive sleep apnea) [G47.33] INVALID FOR* More... 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 Small fiber neuropathy [G62.9] INVALID FOR*05/07/2015 Lumbar pain [M54.5] INVALID FOR*05/07/2015 CAD (coronary artery disease) [I25.10] INVALID FOR* Priority: D More... Chronic pain [G89.29] INVALID FOR*02/11/2014 Eustachian tube dysfunction [H69.80] INVALID FOR*05/07/2015 Serous otitis media [H65.90] INVALID FOR*05/07/2015 Controlled substance agreement signed [Z79.899] INVALID FOR*01/14/2017 HTN (hypertension) [I10] INVALID FOR* Priority: E More... Drug abuse [F19.10] INVALID FOR*01/14/2017 Marijuana dependence ([facility]) [F12.20] INVALID FOR*01/14/2017 Near syncope [R55] INVALID FOR*01/14/2017 Priority: A More... KENRICK (acute kidney injury) (HCC) [N17.9] INVALID FOR*01/14/2017 Priority: B More... Chest pain [R07.9] INVALID FOR*01/14/2017 Priority: C More... Chronic left shoulder pain [M25.512, G89.29] INVALID FOR* Attention deficit hyperactivity disorder (ADHD)*INVALID FOR* Chronic pain [G89.29] INVALID FOR* Adjustment disorder with mixed anxiety and depr*INVALID FOR* Prescriptions ordered this encounter Disp Refills Start End TRAMADOL 50 MG TABLET 30 t* 0 06/29/2018 07/29/2018 Class: Print RX Route: ORAL Sig: Take 1 tablet by mouth at bedtime as needed for Pain for up to 30 days. DEXTROAMPHETAMINE-AMPHETAMINE ER 20 * 30 c* 0 06/29/2018 07/29/2018 Class: Print RX Route: ORAL Sig: Take 1 capsule by mouth once daily for 30 days. Earliest Fill Date: 06/29/18 Medications Discontinued During This Encounter traMADol (ULTRAM) 50 mg tablet 30 t* 0 06/27/2017 06/19/2018 Class: Print RX Route: ORAL Sig: Take 1 tablet by mouth every 8 hours as needed for Pain for up to 30 days. Disc: Reason for discontinue is not on file. traMADol (ULTRAM) 50 mg tablet 30 t* 0 05/29/2018 06/19/2018 Class: Print RX Route: ORAL Sig: Take 1 tablet by mouth at bedtime as needed for Pain for up to 30 days. Disc: Reason for discontinue is not on file. amphetamine-dextroamphetamine XR (AD* 30 c* 0 05/29/2018 06/19/2018 Class: Print RX Route: ORAL Sig: Take 1 capsule by mouth once daily for 30 days. Earliest Fill Date: 05/29/18 Disc: Reason for discontinue is not on file. Disposition: Return in about 3 months (around 09/19/2018). Follow-up and Disposition History Recorded Encounter Status:Closed by JAY OVALLES MD on 06/19/18 PROGRESS Observed: 06/19/2018 Status: COMPLETED Source: [place] 8:39 AM [facility] [place] REPOSITORY HNO ID: [id number] Author: Jay Ovalles Service: (none) Author Type: Physician Type: Progress Notes Filed: 06/19/2018 1:40 PM Note Text: ESTABLISHED PATIENT Sachin Andrews is a 62 year old male presenting for Follow Up. HISTORY OF PRESENT ILLNESS Chronic Stimulant Use Used for: ADHD Medication: Adderrall XR 20mg Pills per day: One pill per day Improves symptoms: Yes concentration is improved. Chronic Narcotic Pain Medication Medication: Tramadol 50 Used for: Lumbar Stenosis and cervical arthritis pain Improves quality of life/pain: Yes Amount used per day: 1 at night Pain Scale before medication: 7 After medication: 2 What functional abilities improve with pain medication: Allows patient to sleep. Otherwise is unable to get comfortable. Without sleep patient is unable to do job Does patient have an opiate/pain contract?: No Non-pharmacologic therapies tried (i.e. PT): PT, Ice heat History of substance abuse?: No longer uses THC If patient is on benzo/muscle relaxer aware of potential sedation: No Concern for addiction: No Non-opioid treatment options: Yes Gabapentin Counseled on safe storage and disposal: Yes Counseled on opioid and alcohol: Yes OARRS being performed: Yes Urine drug screen: Normal in Sep 2017 Hypertension Follow up Medication Adherence: no missed doses and took medications this morning Home monitoring: no Heart palpitations: no Chest pain: no Weakness, numbness, tingling: no Last 3 Encounter BP Readings: Date: BP: 06/19/2018 138/80 03/20/2018 136/80 12/22/2017 128/80 HISTORIES FAMILY HISTORY Problem Relation Age of Onset - Stroke Mother - CHF [OTHER] Mother - lung ca [OTHER] Father - Diabetes Brother PAST MEDICAL HISTORY Diagnosis Date - Abdominal pain, generalized - Acute UT (HCC) 07/2013 [facility] (Dr.Brian Sharp,cardiol) - Allergy - Chronic hepatitis C (HCC) - H/O exercise stress test 08/30/13 [facility], [place], [facility] - History of cardiac cath 07/2013 [facility] - Osteoarthritis - Other specified idiopathic peripheral neuropathy - Raynaud's syndrome - Rheumatoid arthritis(714.0) pt. states PAST SURGICAL HISTORY Procedure Laterality Date - COLONOSCOP W/ OR W/O BRSH SPEC 01/19/09 - PAST SURGICAL HISTORY OF right knee total revision - PAST SURGICAL HISTORY OF right foot fasca repair - PAST SURGICAL HISTORY OF reattachment left thumb - PAST SURGICAL HISTORY OF left small finger tendon and ligiment repair - PAST SURGICAL HISTORY OF left rotator cuff repair - REPAIR ING HERNIA,5+Y/O,REDUCIBL right Hernia repair, inguinal - REPAIR ROTATOR CUFF,ACUTE right 09/2006 Rotator cuff repair Social History Marital status: Spouse name: Years of education: Number of children: Social History Main Topics Smoking status: Former Smoker Packs/day: 0.00 Years: 0.00 Types: Cigarettes Quit date: 11/24/1975 Smokeless tobacco: Never Used Comment: past use of medical marijuana Alcohol use: Yes Comment: rarely, 2 drinks per month Drug use: No Comment: history of occasional marijuana use Allergies: ALLERGIES Allergen Reactions - Environmental [Othe* tree pollen causes itchy eyes and sneezing Medications: potassium (POTASSIMIN ORAL) Take by mouth. amphetamine-dextroamphetamine XR (ADDERALL XR) 20 mg 24 hr capsule Take 1 capsule by mouth once daily for 30 days.Earliest Fill Date: 05/29/18 traMADol (ULTRAM) 50 mg tablet Take 1 tablet by mouth at bedtime as needed for Pain for up to 30 days. aspirin, enteric coated (ASPIR-LOW) 81 mg EC tablet Take 1 tablet by mouth once daily. omeprazole (PRILOSEC) 20 mg capsule Take 20 mg by mouth once daily. loperamide (IMODIUM) 2 mg cap(s) Take 2 mg by mouth four times daily as needed. FOLIC ACID ORAL Take by mouth. losartan (COZAAR) 50 mg tablet Take 50 mg by mouth once daily. atorvastatin (LIPITOR) 80 mg tablet Take 80 mg by mouth once daily. MAGNESIUM ORAL Take 50 mg by mouth. multivitamin tablet Take 1 tablet by mouth once daily. VITAMIN B COMPLEX (B COMPLEX 1 ORAL) Take by mouth. fluticasone (FLONASE) 50 mcg/actuation nasal spray Use 1 [place] in each nostril daily at bedtime. before lying down. albuterol HFA (VENTOLIN HFA) 90 mcg/actuation inhaler Inhale 2 Puffs as instructed every 4 hours as needed for Wheezing/Shortness of Breath. LACTOBACILLUS ACIDOPHILUS (PROBIOTIC ORAL) Take by mouth once daily. gabapentin (NEURONTIN) 600 mg tablet Take 1 tablet by mouth three times daily. BIPAP BIPAP 11/5 cmH2O, suitable mask, tubing, humidifier, filters. Lifetime supplies. Dx: 327.23 - Obstructive sleep apnea. Please fax compliance report to [phone] in 6-8 wks. GLUC/CHND/OM3/DHA/EPA/FISH/STR (GLUCOSAMINE CHONDROITIN PLUS ORAL) Take by mouth. REVIEW OF SYSTEMS GENERAL: No weight loss, malaise or fevers. RESPIRATORY: Negative for cough, hemoptysis, wheezing or shortness of breath. CARDIOVASCULAR: Negative for chest pain, leg swelling or palpitations. All other systems reviewed and negative other than HPI. PHYSICAL EXAM BP 138/80 Pulse 79 Ht 182.9 cm (6') Wt 98 kg (216 lb) SpO2 97% BMI 29.29 kg/m? General: Well developed, well nourished, in no acute distress. Head: Normocephalic, atraumatic. Neck: Supple. Eyes: Normal conjunctiva, no scleral icterus. Lungs: Clear to auscultation bilaterally, no rubs, no wheezing. Cardiac: Regular rate and rhythm. No murmurs, gallops, or rubs. Extremities: No edema. ASSESSMENT/PLAN: 1. Spondylosis of lumbar region without myelopathy or radiculopathy - ICD9: 721.3, ICD10: M47.816 (primary diagnosis) COnt current meds - TRAMADOL 50 MG TABLET 2. Attention deficit disorder, unspecified hyperactivity presence - ICD9: 314.00, ICD10: F98.8 Cont current meds - DEXTROAMPHETAMINE-AMPHETAMINE ER 20 MG 24HR CAPSULE,EXTEND RELEASE 3. Essential hypertension - ICD9: 401.9, ICD10: I10 - good control - Recommended regular aerobic exercise. - Recommend home blood pressure monitoring, to bring results in on next visit Jay Ovalles MD PDMP website checked and validated. All prescriptions have been APPROPRIATELY filled. No suspicious activity was identified. 06/19/2018 by Jay Ovalles MD MRI SHOULDER W/O Observed: 03/31/2018 Status: F Source: [place] CONTRAST RIGHT 3:00 PM [facility] [place] REPOSITORY ORIGINAL MRI SHOULDER W/O CONTRAST RIGHT CLINICAL STATEMENT: RIGHT SHOULDER SPRAIN. Limited range of motion, RIGHT rotator cuff surgery in 2004 or 2004 COMPARISON: None FINDINGS: Motion degrades image quality. Bone anchors are noted in the humeral head. There are moderate degenerative changes at the acromioclavicular joint, and likely there are postsurgical changes at this location as well. Rotator cuff muscles maintain normal bulk. There is a small amount of fluid in the subacromial/subdeltoid bursa. There is no complete width full-thickness rotator cuff tear. The r otator cuff tendons appear grossly intact. The long head biceps tendon appears degenerated. The glenohumeral relationship is preserved. There is no discrete labral tear. Marrow signal is unremarkable. IMPRESSION: 1. Prior rotator cuff repair. The rotator cuff appears grossly intact. 2. Subacromial bursitis. 3. Degeneration of the long head biceps tendon. Interpreted By: Yenifer Mackey MD Preliminary Report By: Yenifer Mackey MD Electronically Signed By: Yenifer Mackey MD Dictated Date: 04/01/2018 1:48:51 PM Prelim Date: 04/01/2018 1:48:51 PM Sign Date: 04/01/2018 1:57:54 PM PROGRESS Observed: 03/20/2018 Status: COMPLETED Source: [place] 3:13 PM [facility] [place] [facility] REPOSITORY HNO ID: [id number] Author: Jay Ovalles Service: (none) Author Type: Physician Type: Progress Notes Filed: 03/20/2018 9:10 PM Note Text: ESTABLISHED PATIENT Sachin Andrews is a 62 year old male presenting for Follow Up. HISTORY OF PRESENT ILLNESS Chronic Stimulant Use Used for: ADHD Medication: Adderrall XR 20mg Pills per day: One pill per day Improves symptoms: Yes concentration is improved. Chronic Narcotic Pain Medication Medication: Tramadol 50 Used for: LKumbar Stenosis and cervical arthritis pain Improves quality of life/pain: Yes Amount used per day: 1 at night Pain Scale before medication: 7 After medication: 2 What functional abilities improve with pain medication: Allows patient to sleep. Otherwise is unable to get comfortable. Without sleep patient is unable to do job Does patient have an opiate/pain contract?: No Non-pharmacologic therapies tried (i.e. PT): PT, Ice heat History of substance abuse?: No longer uses THC If patient is on benzo/muscle relaxer aware of potential sedation: No Concern for addiction: No Non-opioid treatment options: Yes Gabapentin Counseled on safe storage and disposal: Yes Counseled on opioid and alcohol: Yes OARRS being performed: Yes Urine drug screen: Normal in Sep 2017 Right eye teary. Slept in contact then woke up with some pain. Has improved throughout the day. No purulent discharge. Hypertension Follow up Medication Adherence: no missed doses and took medications this morning Home monitoring: no Heart palpitations: no Chest pain: no Weakness, numbness, tingling: no Last 3 Encounter BP Readings: Date: BP: 03/20/2018 136/80 12/22/2017 128/80 09/24/2017 142/88 Recent Labs: WBC 8.06 01/14/2017 Hemoglobin 14.9 01/14/2017 Hematocrit 44.9 01/14/2017 Platelet Count 282 01/14/2017 Sodium 139 01/14/2017 Potassium 4.9 01/14/2017 Creatinine 1.08 01/14/2017 BUN 14 01/14/2017 Glucose 98 01/14/2017 Calcium 9.6 01/14/2017 HBA1C, [place] 5.8 01/14/2017 LDL Cholesterol 85 01/14/2017 HDL Cholesterol 35 01/14/2017 Cholesterol, Total 133 01/14/2017 Triglyceride 66 01/14/2017 AST 19 05/07/2015 ALT 12 05/07/2015 Alkaline Phosphatase 85 05/07/2015 TSH 2.290 05/11/2013 HISTORIES FAMILY HISTORY Problem Relation Age of Onset - Stroke Mother - CHF [OTHER] Mother - lung ca [OTHER] Father - Diabetes Brother PAST MEDICAL HISTORY Diagnosis Date - Abdominal pain, generalized - Acute [place] (HCC) 07/2013 [facility] (Dr.Brian Sahrp,cardiol) - Allergy - Chronic hepatitis C (HCC) - H/O exercise stress test 08/30/13 [facility] [place], [facility] - History of cardiac cath 07/2013 [facility] - Osteoarthritis - Other specified idiopathic peripheral neuropathy - Raynaud's syndrome - Rheumatoid arthritis(714.0) pt. states PAST SURGICAL HISTORY Procedure Laterality Date - COLONOSCOP W/ OR W/O BRSH SPEC 01/19/09 - PAST SURGICAL HISTORY OF right knee total revision - PAST SURGICAL HISTORY OF right foot fasca repair - PAST SURGICAL HISTORY OF reattachment left thumb - PAST SURGICAL HISTORY OF left small finger tendon and ligiment repair - PAST SURGICAL HISTORY OF left rotator cuff repair - REPAIR ING HERNIA,5+Y/O,REDUCIBL right Hernia repair, inguinal - REPAIR ROTATOR CUFF,ACUTE right 09/2006 Rotator cuff repair Social History Marital status: Spouse name: Years of education: Number of children: Social History Main Topics Smoking status: Former Smoker Packs/day: 0.00 Years: 0.00 Types: Cigarettes Quit date: 11/24/1977 Smokeless status: Never Used Comment: past use of medical marijuana Alcohol use: Yes Comment: rarely, 2 drinks per month Drug use: No Comment: history of occasional marijuana use Allergies: ALLERGIES Allergen Reactions - Environmental [Othe* tree pollen causes itchy eyes and sneezing Medications: amphetamine-dextroamphetamine XR (ADDERALL XR) 20 mg 24 hr capsule Take 1 capsule by mouth once daily for 30 days.Earliest Fill Date: 02/24/18 traMADol (ULTRAM) 50 mg tablet Take 1 tablet by mouth at bedtime as needed for Pain for up to 30 days. aspirin, enteric coated (ASPIR-LOW) 81 mg EC tablet Take 1 tablet by mouth once daily. omeprazole (PRILOSEC) 20 mg capsule Take 20 mg by mouth once daily. BIPAP BIPAP 11/5 cmH2O, suitable mask, tubing, humidifier, filters. Lifetime supplies. Dx: 327.23 - Obstructive sleep apnea. Please fax compliance report to [phone] in 6-8 wks. loperamide (IMODIUM) 2 mg cap(s) Take 2 mg by mouth four times daily as needed. FOLIC ACID ORAL Take by mouth. losartan (COZAAR) 50 mg tablet Take 50 mg by mouth once daily. atorvastatin (LIPITOR) 80 mg tablet Take 80 mg by mouth once daily. MAGNESIUM ORAL Take 50 mg by mouth. multivitamin tablet Take 1 tablet by mouth once daily. VITAMIN B COMPLEX (B COMPLEX 1 ORAL) Take by mouth. GLUC/CHND/OM3/DHA/EPA/FISH/STR (GLUCOSAMINE CHONDROITIN PLUS ORAL) Take by mouth. fluticasone (FLONASE) 50 mcg/actuation nasal spray Use 1 [place] in each nostril daily at bedtime. before lying down. albuterol HFA (VENTOLIN HFA) 90 mcg/actuation inhaler Inhale 2 Puffs as instructed every 4 hours as needed for Wheezing/Shortness of Breath. LACTOBACILLUS ACIDOPHILUS (PROBIOTIC ORAL) Take by mouth once daily. gabapentin (NEURONTIN) 600 mg tablet Take 1 tablet by mouth three times daily. REVIEW OF SYSTEMS GENERAL: No weight loss, malaise or fevers. RESPIRATORY: Negative for cough, hemoptysis, wheezing or shortness of breath. CARDIOVASCULAR: Negative for chest pain, leg swelling or palpitations. All other systems reviewed and negative other than HPI. PHYSICAL EXAM BP 136/80 Pulse 85 Temp 37.1 ?C (98.8 ?F) (Oral) Resp 18 Ht 182.9 cm (6') Wt 95.4 kg (210 lb 6.4 oz) SpO2 98% BMI 28.54 kg/m2 General: Well developed, well nourished, in no acute distress. Head: Normocephalic, atraumatic. Neck: Supple. Eyes: right eye red conjunctiva, no scleral icterus. Perrla. Lungs: Clear to auscultation bilaterally, no rubs, no wheezing. Cardiac: Regular rate and rhythm. No murmurs, gallops, or rubs. Extremities: No edema. ASSESSMENT/PLAN: 1. Attention deficit disorder, unspecified hyperactivity presence - ICD9: 314.00, ICD10: F98.8 (primary diagnosis) - DEXTROAMPHETAMINE-AMPHETAMINE ER 20 MG 24HR CAPSULE,EXTEND RELEASE 2. Spondylosis of lumbar region without myelopathy or radiculopathy - ICD9: 721.3, ICD10: M47.816 - TRAMADOL 50 MG TABLET 3. Acute conjunctivitis of right eye, unspecified acute conjunctivitis type - ICD9: 372.00, ICD10: H10.31 Cont antibiotic 4. Essential hypertension - ICD9: 401.9, ICD10: I10 - good control - Recommended regular aerobic exercise. - Recommend home blood pressure monitoring, to bring results in on next visit Jay Ovalles MD PROGRESS Observed: 03/20/2018 Status: COMPLETED Source: [place] 2:54 PM [facility] REPOSITORY HNO ID: [id number] Author: Prateek Grigsby Service: (none) Author Type: (none) Type: Progress Notes Filed: 03/20/2018 9:10 PM Note Text: There are no preventive care reminders to display for this patient. HAN Observed: 03/20/2018 Status: COMPLETED Source: [place] 2:40 PM [facility] RE[facility]IT[facility] Office Visit ([facility]) SACHIN ANDREWS ([id number]) 1955 M Date Time Provider Department 03/20/18 2:40 PM JAY OVALLES [facility] During your visit today, we recorded the following information about you: Temperature Pulse Respiration Blood pressure 98.8 degrees 85/minute 18/minute 136/80 Weight Height 95.4 kg 1.829 m Prateek Grigsby 03/20/2018 2:54 PM Signed [facility] - LAB TEST INFORMATION HOURS: 7 am to 6 pm Friday ? Friday, 7 am -12 pm on Friday. The lab is located in [facility] on the first floor. There is a registration window at the lab, available 7 am to 3 pm Friday ? Friday. If registration is unavailable at the lab, you may register at the patient registration office near the [facility]. ROUTINE ORDERS 60 days after they are entered. If you arrive for your lab testing after the orders have , you may be required to wait in the lab while they are reinstated. FUTURE ORDERS are lab tests to be completed on or after an ?expected? future date. These orders 60 days after the expected date. STANDING ORDERS are recurring orders with an expiration date. The interval will indicate how often the test should be completed. FASTING means nothing to eat or drink (except water) 10-12 hours before your blood is drawn. CT / MRI / IVP If you have lab tests ordered for one of these radiology exams, please complete the blood work at least one day prior to the scheduled exam. PRESCRIPTION REFILL REQUESTS Request prescription refills through your [employer] account or contact your Pharmacy. Prateek Grigsby 03/20/2018 9:10 PM Signed There are no preventive care reminders to display for this patient. Jay Ovalles MD 03/20/2018 9:10 PM Signed ESTABLISHED PATIENT Sachin Andrews is a 62 year old male presenting for Follow Up. HISTORY OF PRESENT ILLNESS Chronic Stimulant Use Used for: ADHD Medication: Adderrall XR 20mg Pills per day: One pill per day Improves symptoms: Yes concentration is improved. Chronic Narcotic Pain Medication Medication: Tramadol 50 Used for: LKumbar Stenosis and cervical arthritis pain Improves quality of life/pain: Yes Amount used per day: 1 at night Pain Scale before medication: 7 After medication: 2 What functional abilities improve with pain medication: Allows patient to sleep. Otherwise is unable to get comfortable. Without sleep patient is unable to do job Does patient have an opiate/pain contract?: No Non-pharmacologic therapies tried (i.e. PT): PT, Ice heat History of substance abuse?: No longer uses THC If patient is on benzo/muscle relaxer aware of potential sedation: No Concern for addiction: No Non-opioid treatment options: Yes Gabapentin Counseled on safe storage and disposal: Yes Counseled on opioid and alcohol: Yes OARRS being performed: Yes Urine drug screen: Normal in Sep 2017 Right eye teary. Slept in contact then woke up with some pain. Has improved throughout the day. No purulent discharge. Hypertension Follow up Medication Adherence: no missed doses and took medications this morning Home monitoring: no Heart palpitations: no Chest pain: no Weakness, numbness, tingling: no Last 3 Encounter BP Readings: Date: BP: 03/20/2018 136/80 12/22/2017 128/80 09/24/2017 142/88 Recent Labs: WBC 8.06 01/14/2017 Hemoglobin 14.9 01/14/2017 Hematocrit 44.9 01/14/2017 Platelet Count 282 01/14/2017 Sodium 139 01/14/2017 Potassium 4.9 01/14/2017 Creatinine 1.08 01/14/2017 BUN 14 01/14/2017 Glucose 98 01/14/2017 Calcium 9.6 01/14/2017 HBA1C, [place] 5.8 01/14/2017 LDL Cholesterol 85 01/14/2017 HDL Cholesterol 35 01/14/2017 Cholesterol, Total 133 01/14/2017 Triglyceride 66 01/14/2017 AST 19 05/07/2015 ALT 12 05/07/2015 Alkaline Phosphatase 85 05/07/2015 TSH 2.290 05/11/2013 HISTORIES FAMILY HISTORY Problem Relation Age of Onset - Stroke Mother - CHF [OTHER] Mother - lung ca [OTHER] Father - Diabetes Brother PAST MEDICAL HISTORY Diagnosis Date - Abdominal pain, generalized - Acute UT (HCC) 07/2013 [facility] (Dr.Brian Sharp,cardiol) - Allergy - Chronic hepatitis C (HCC) - H/O exercise stress test 08/30/13 [facility] [place] - History of cardiac cath 07/2013 [facility] - Osteoarthritis - Other specified idiopathic peripheral neuropathy - Raynaud's syndrome - Rheumatoid arthritis(714.0) pt. states PAST SURGICAL HISTORY Procedure Laterality Date - COLONOSCOP W/ OR W/O [facility] SPEC 01/19/09 - PAST SURGICAL HISTORY OF right knee total revision - PAST SURGICAL HISTORY OF right foot fasca repair - PAST SURGICAL HISTORY OF reattachment left thumb - PAST SURGICAL HISTORY OF left small finger tendon and ligiment repair - PAST SURGICAL HISTORY OF left rotator cuff repair - REPAIR ING HERNIA,5+Y/O,REDUCIBL right Hernia repair, inguinal - REPAIR ROTATOR CUFF,ACUTE right 09/2006 Rotator cuff repair Social History Marital status: Spouse name: Years of education: Number of children: Social History Main Topics Smoking status: Former Smoker Packs/day: 0.00 Years: 0.00 Types: Cigarettes Quit date: 11/24/1975 Smokeless status: Never Used Comment: past use of medical marijuana Alcohol use: Yes Comment: rarely, 2 drinks per month Drug use: No Comment: history of occasional marijuana use Allergies: ALLERGIES Allergen Reactions - Environmental [Othe* tree pollen causes itchy eyes and sneezing Medications: amphetamine-dextroamphetamine XR (ADDERALL XR) 20 mg 24 hr capsule Take 1 capsule by mouth once daily for 30 days.Earliest Fill Date: 02/24/18 traMADol (ULTRAM) 50 mg tablet Take 1 tablet by mouth at bedtime as needed for Pain for up to 30 days. aspirin, enteric coated (ASPIR-LOW) 81 mg EC tablet Take 1 tablet by mouth once daily. omeprazole (PRILOSEC) 20 mg capsule Take 20 mg by mouth once daily. BIPAP BIPAP 11/5 cmH2O, suitable mask, tubing, humidifier, filters. Lifetime supplies. Dx: 327.23 - Obstructive sleep apnea. Please fax compliance report to [phone] in 6-8 wks. loperamide (IMODIUM) 2 mg cap(s) Take 2 mg by mouth four times daily as needed. FOLIC ACID ORAL Take by mouth. losartan (COZAAR) 50 mg tablet Take 50 mg by mouth once daily. atorvastatin (LIPITOR) 80 mg tablet Take 80 mg by mouth once daily. MAGNESIUM ORAL Take 50 mg by mouth. multivitamin tablet Take 1 tablet by mouth once daily. VITAMIN B COMPLEX (B COMPLEX 1 ORAL) Take by mouth. GLUC/CHND/OM3/DHA/EPA/FISH/STR (GLUCOSAMINE CHONDROITIN PLUS ORAL) Take by mouth. fluticasone (FLONASE) 50 mcg/actuation nasal spray Use 1 [place] in each nostril daily at bedtime. before lying down. albuterol HFA (VENTOLIN HFA) 90 mcg/actuation inhaler Inhale 2 Puffs as instructed every 4 hours as needed for Wheezing/Shortness of Breath. LACTOBACILLUS ACIDOPHILUS (PROBIOTIC ORAL) Take by mouth once daily. gabapentin (NEURONTIN) 600 mg tablet Take 1 tablet by mouth three times daily. REVIEW OF SYSTEMS GENERAL: No weight loss, malaise or fevers. RESPIRATORY: Negative for cough, hemoptysis, wheezing or shortness of breath. CARDIOVASCULAR: Negative for chest pain, leg swelling or palpitations. All other systems reviewed and negative other than HPI. PHYSICAL EXAM BP 136/80 Pulse 85 Temp 37.1 ?C (98.8 ?F) (Oral) Resp 18 Ht 182.9 cm (6') Wt 95.4 kg (210 lb 6.4 oz) SpO2 98% BMI 28.54 kg/m2 General: Well developed, well nourished, in no acute distress. Head: Normocephalic, atraumatic. Neck: Supple. Eyes: right eye red conjunctiva, no scleral icterus. Perrla. Lungs: Clear to auscultation bilaterally, no rubs, no wheezing. Cardiac: Regular rate and rhythm. No murmurs, gallops, or rubs. Extremities: No edema. ASSESSMENT/PLAN: 1. Attention deficit disorder, unspecified hyperactivity presence - ICD9: 314.00, ICD10: F98.8 (primary diagnosis) - DEXTROAMPHETAMINE-AMPHETAMINE ER 20 MG 24HR CAPSULE,EXTEND RELEASE 2. Spondylosis of lumbar region without myelopathy or radiculopathy - ICD9: 721.3, ICD10: M47.816 - TRAMADOL 50 MG TABLET 3. Acute conjunctivitis of right eye, unspecified acute conjunctivitis type - ICD9: 372.00, ICD10: H10.31 Cont antibiotic 4. Essential hypertension - ICD9: 401.9, ICD10: I10 - good control - Recommended regular aerobic exercise. - Recommend home blood pressure monitoring, to bring results in on next visit Jay Ovalles MD Referring Provider: JAY OVALLES [[id number]] Allergies As of Date: 03/20/2018 Noted Allergy Reaction environmental [Other] 02/10/2008 Comments: tree pollen causes itchy eyes and sneezing Date Reviewed: 03/20/2018 Reviewed by: Prateek Grigsby - Fully Assessed Reason for Visit: Follow Up [171] Primary Visit Diagnosis:Attention deficit disorder, unspecified hyperactivity presence [F98.8] Other Visit Diagnoses:Spondylosis of lumbar region without myelopathy or radiculopathy [M47.816] Acute conjunctivitis of right eye, unspecified acute conjunctivitis type [H10.31] Essential hypertension [I10] Order(s):[START ON 03/27/2018] amphetamine-dextroamphetamine XR (ADDERALL XR) 20 mg 24 hr capsuleTake 1 capsule by mouth once daily for 30 days. Earliest Fill Date: 03/27/18Disp: 30 capsuleRfl: 0 [START ON 03/25/2018] traMADol (ULTRAM) 50 mg tabletTake 1 tablet by mouth at bedtime as needed for Pain for up to 30 days.Disp: 30 tabletRfl: 0 ciprofloxacin HCl (CILOXAN) 0.3 % ophthalmic solutionUse 1-2 Drops in the right eye every 2 hours for 7 days. and 1-2 drops every 4 hours for the next 5 days. Use while awake.Disp: 2.5 mLRfl: 0 Prescriptions as of 03/20/2018 Sig: DEXTROAMPHETAMINE-AMPHETAMINE* Take 1 capsule by mouth once * TRAMADOL 50 MG TABLET Take 1 tablet by mouth at bed* CIPROFLOXACIN 0.3 % EYE DROPS Use 1-2 Drops in the right ey* ASPIRIN 81 MG TABLET,DELAYED * Take 1 tablet by mouth once d* OMEPRAZOLE 20 MG CAPSULE,ZANE* Take 20 mg by mouth once edgardo* BIPAP BIPAP 11/5 cmH2O, suitable m* LOPERAMIDE 2 MG CAPSULE Take 2 mg by mouth four times* FOLIC ACID ORAL Take by mouth. LOSARTAN 50 MG TABLET Take 50 mg by mouth once edgardo* ATORVASTATIN 80 MG TABLET Take 80 mg by mouth once edgardo* MAGNESIUM ORAL Take 50 mg by mouth. MULTIVITAMIN TABLET Take 1 tablet by mouth once d* B COMPLEX 1 ORAL Take by mouth. GLUCOSAMINE CHONDROITIN PLUS * Take by mouth. FLUTICASONE 50 MCG/ACTUATION * Use 1 [place] in each nostril d* ALBUTEROL SULFATE HFA 90 MCG/* Inhale 2 Puffs as instructed * PROBIOTIC ORAL Take by mouth once daily. GABAPENTIN 600 MG TABLET Take 1 tablet by mouth three * Problem List As Of Date 03/20/2018 Noted Resolved Peripheral neuropathy (HCC) [G62.9] INVALID FOR* Priority: F More... Chronic rhinitis [J31.0] INVALID FOR*05/07/2015 DEPRESSIVE DISORDER NEC [F32.9] INVALID FOR* Persistent disorder of initiating or maintainin*INVALID FOR*05/07/2015 Chronic hepatitis C without mention of hepatic *INVALID FOR*11/19/2016 Loss of weight [R63.4] INVALID FOR*05/07/2015 CHRONIC PAIN NEC [G89.29] INVALID FOR*05/07/2015 More... ELAYNE (obstructive sleep apnea) [G47.33] INVALID FOR* More... 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 Small fiber neuropathy [G62.9] INVALID FOR*05/07/2015 Lumbar pain [M54.5] INVALID FOR*05/07/2015 CAD (coronary artery disease) [I25.10] INVALID FOR* Priority: D More... Chronic pain [G89.29] INVALID FOR*02/11/2014 Eustachian tube dysfunction [H69.80] INVALID FOR*05/07/2015 Serous otitis media [H65.90] INVALID FOR*05/07/2015 Controlled substance agreement signed [Z79.899] INVALID FOR*01/14/2017 HTN (hypertension) [I10] INVALID FOR* Priority: E More... Drug abuse [F19.10] INVALID FOR*01/14/2017 Marijuana dependence (HCC) [F12.20] INVALID FOR*01/14/2017 Near syncope [R55] INVALID FOR*01/14/2017 Priority: A More... KENRICK (acute kidney injury) (HCC) [N17.9] INVALID FOR*01/14/2017 Priority: B More... Chest pain [R07.9] INVALID FOR*01/14/2017 Priority: C More... Chronic left shoulder pain [M25.512, G89.29] INVALID FOR* Attention deficit hyperactivity disorder (ADHD)*INVALID FOR* Chronic pain [G89.29] INVALID FOR* Adjustment disorder with mixed anxiety and depr*INVALID FOR* Other instructions from your clinician: [facility] - LAB TEST INFORMATION HOURS: 7 am to 6 pm Friday ? Friday, 7 am -12 pm on Friday. The lab is located in [facility] on the first floor. There is a registration window at the lab, available 7 am to 3 pm Friday ? Friday. If registration is unavailable at the lab, you may register at the patient registration office near the [facility]. ROUTINE ORDERS 60 days after they are entered. If you arrive for your lab testing after the orders have , you may be required to wait in the lab while they are reinstated. FUTURE ORDERS are lab tests to be completed on or after an ?expected? future date. These orders 60 days after the expected date. STANDING ORDERS are recurring orders with an expiration date. The interval will indicate how often the test should be completed. FASTING means nothing to eat or drink (except water) 10- 12 hours before your blood is drawn. CT / MRI / IVP If you have lab tests ordered for one of these radiology exams, please complete the blood work at least one day prior to the scheduled exam. PRESCRIPTION REFILL REQUESTS Request prescription refills through your [facility] account or contact your Pharmacy. Prescriptions ordered this encounter Disp Refills Start End DEXTROAMPHETAMINE-AMPHETAMINE ER 20 * 30 c* 0 03/27/2018 04/26/2018 Class: Print RX Route: ORAL Sig: Take 1 capsule by mouth once daily for 30 days. Earliest Fill Date: 03/27/18 TRAMADOL 50 MG TABLET 30 t* 0 03/25/2018 04/24/2018 Class: Print RX Route: ORAL Sig: Take 1 tablet by mouth at bedtime as needed for Pain for up to 30 days. CIPROFLOXACIN 0.3 % EYE DROPS 2.5 * 0 03/20/2018 03/27/2018 Route: RIGHT EYE Sig: Use 1-2 Drops in the right eye every 2 hours for 7 days. and 1-2 drops every 4 hours for the next 5 days. Use while awake. Medications Discontinued During This Encounter amphetamine-dextroamphetamine XR (AD* 30 c* 0 02/24/2018 03/20/2018 Class: Print RX Route: ORAL Sig: Take 1 capsule by mouth once daily for 30 days. Earliest Fill Date: 02/24/18 Disc: Reason for discontinue is not on file. traMADol (ULTRAM) 50 mg tablet 30 t* 0 02/24/2018 03/20/2018 Class: Call Rx Route: ORAL Sig: Take 1 tablet by mouth at bedtime as needed for Pain for up to 30 days. Disc: Reason for discontinue is not on file. Disposition: Return in about 3 months (around 06/19/2018). Follow-up and Disposition History Recorded Encounter Status:Closed by JAY OVALLES MD on 03/20/18 [facility] Observed: 03/20/2018 Status: COMPLETED Source: [place] 12:00 AM [facility] Letter Text [facility] [address] [place] [address] Controlled Substance Agreement GOAL The purpose of this Agreement is to prevent misunderstandings about certain medicines you will be taking for pain management. It will help both you and your doctor to comply with laws regarding controlled pharmaceuticals. I understand that this Agreement is essential to the trust and confidence necessary in a doctor/patient relationship and that my doctor undertakes to treat me based on this Agreement. AGREEMENT I, Mr. Sachin Radha Andrews, understand that if I break this Agreement, my doctor will stop prescribing these controlled medicines. In this case, my doctor will taper off the medicine over a period of several days, as necessary, to avoid withdrawal symptoms. A drug-dependence treatment program may be recommended. In certain cases, you may be terminated as a patient. I will communicate fully with my doctor about the character and intensity of my pain, its effect on my daily life, and how well the medicine is helping to relieve the pain. I will not use any illegal controlled substances, including marijuana, cocaine, etc. Random urine and/or serum toxicology screens may be requested; this testing may be unannounced and occur at any time. I agree that I will submit to a blood or urine test if requested by my doctor to determine my compliance with my program of pain control medicine. I will not share, sell or trade my medication with anyone. I will not attempt to obtain any controlled substance from any other doctor, other than a covering physician. I will safeguard my pain medicine from loss or theft. Lost or stolen medicines may not be replaced. I agree that refills of my prescriptions for pain medicine will be made only at the time of an office visit or during regular office hours. No refills will be available on evenings or weekends. I authorize the doctor and my pharmacy to cooperate fully with any [facility], state or federal law enforcement agency, including [facility] state's Board of Pharmacy, in the investigation of any possible misuse, sale, or other diversion of my medication. I authorize my doctor to provide a copy of this Agreement to my pharmacy. I agree to waive any applicable privilege or right of privacy or confidentiality with respect to these authorizations. I agree that I will use my medicine at a rate no greater than the prescribed rate and that use of my medicine at a greater rate may result in my being without medication for a period of time. If legal authorities have questions concerning treatment, for example, if a patient were obtaining medications at several pharmacies, all confidentiality is waived and the authorities may be given full access to the [facility] Records of narcotic administration. I agree to follow these guidelines and they have been fully explained to me. All of my questions and concerns regarding treatment have been answered. A copy of this document has been given to me. Patient: Date: March 20, 2018 Sachin Andrews [id number] Physician: Date: March 20, 2018 Jay Ovalles MD Information regarding Controlled Substance Prescriptions: Please read carefully. Strong pain medications such as Tramadol, Narcotic analgesics are helpful to control a severe pain when it is difficult to control with simple pain medications, but they can cause problems if taken for too long. The goal of treatment is to control the pain to a level where you will be able to function. The long-term use of such substances as opioids (narcotic analgesics), benzodiazepine tranquilizers, and barbiturate sedatives is controversial because of uncertainty regarding the extent to which they actually improve the lives of those receiving them in snf use. Some people receive prolonged benefit and others do not. Some may actually have an increase in pain. There is also the risk of developing addiction or causing relapse of addiction. It is important that you know the side effects of these medications including: Excessive doses suppress breathing and may be fatal. This is especially true if the person is a child. Drowsiness and impaired concentration may create danger with driving or operating machinery, especially shortly after dose increases. Some people describe lasting feelings of reduced alertness and concentration. Toxicity is much more likely if the drug is combined with tranquilizers or sedatives, so the user must never do this. Constipation is most common. Stool softeners or other agents are then required. If these drugs are taken regularly during the latter months of , the child will probably be born physically dependent on them. Many deaths have occurred because of abuse of these medications, often by people other than those for whom they were prescribed, or because of combining them with other substances. Therefore, strict accountability is necessary. The following policies are agreed to by the treatment recipient. Selling or giving away this medication is against the law and may cause harm or to the person who receives it. Thus you must never give controlled substances to anyone else, even if he or she has the same symptoms as you. It is equally important that you secure your medications so that no one else can access them. Workers in the home, friends of children, and visitors can be expected to look through medicine cabinets and take drugs of abuse. Medications should not be left in sight in hotel rooms, unoccupied cars, etc. Should a child accidentally ingest one of your pills, obtain emergency medical care immediately. A good rule of thumb is not to put the medication any place you would not leave $1000 in [place]. A small, inexpensive safe or lockable cabinet is a good idea. Because diverted / stolen opioids are causing an epidemic of deaths in the [place], lost or stolen medications will not be replaced. It is your responsibility to safeguard them. In addition [place] law requires certain procedures for the prescription of controlled substances which will be discussed. KELSYMANUELA Observed: 03/03/2018 Status: COMPLETED Source: [place] 12:00 AM [facility] REPOSITORY Patient Outreach ([facility]) SACHIN ANDREWS ([id number]) 1955 M Date Time Provider Department 03/03/18 JAY OVALLES [facility] During your visit today, we recorded the following information about you: Allergies As of Date: 03/03/2018 Noted Allergy Reaction environmental [Other] 02/10/2008 Comments: tree pollen causes itchy eyes and sneezing Date Reviewed: 12/22/2017 Reviewed by: Prateek Grigsby - Fully Assessed Visit Diagnosis:Medication management [Z79.899] Order(s):BASIC METABOLIC PNL [SQBMP] Order #: [id number] FUTURE HGB A1C [PXVVR8I] Order #: [id number] FUTURE LIPID PANEL BASIC [SQLIPB] Order #: [id number] FUTURE Prescriptions as of 03/03/2018 Sig: X DEXTROAMPHETAMINE-AMPHETAMINE* Take 1 capsule by mouth once * X TRAMADOL 50 MG TABLET Take 1 tablet by mouth at bed* ASPIRIN 81 MG TABLET,DELAYED * Take 1 tablet by mouth once d* OMEPRAZOLE 20 MG CAPSULE,ZANE* Take 20 mg by mouth once edgardo* BIPAP BIPAP 11/5 cmH2O, suitable m* LOPERAMIDE 2 MG CAPSULE Take 2 mg by mouth four times* FOLIC ACID ORAL Take by mouth. LOSARTAN 50 MG TABLET Take 50 mg by mouth once edgardo* ATORVASTATIN 80 MG TABLET Take 80 mg by mouth once edgardo* MAGNESIUM ORAL Take 50 mg by mouth. MULTIVITAMIN TABLET Take 1 tablet by mouth once d* B COMPLEX 1 ORAL Take by mouth. GLUCOSAMINE CHONDROITIN PLUS * Take by mouth. FLUTICASONE 50 MCG/ACTUATION * Use 1 [place] in each nostril d* ALBUTEROL SULFATE HFA 90 MCG/* Inhale 2 Puffs as instructed * PROBIOTIC ORAL Take by mouth once daily. GABAPENTIN 600 MG TABLET Take 1 tablet by mouth three * Problem List As Of Date 03/03/2018 Noted Resolved Peripheral neuropathy (HCC) [G62.9] INVALID FOR* Priority: F More... Chronic rhinitis [J31.0] INVALID FOR*05/07/2015 DEPRESSIVE DISORDER NEC [F32.9] INVALID FOR* Persistent disorder of initiating or maintainin*INVALID FOR*05/07/2015 Chronic hepatitis C without mention of hepatic *INVALID FOR*11/19/2016 Loss of weight [R63.4] INVALID FOR*05/07/2015 CHRONIC PAIN NEC [G89.29] INVALID FOR*05/07/2015 More... ELAYNE (obstructive sleep apnea) [G47.33] INVALID FOR* More... 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 Small fiber neuropathy [G62.9] INVALID FOR*05/07/2015 Lumbar pain [M54.5] INVALID FOR*05/07/2015 CAD (coronary artery disease) [I25.10] INVALID FOR* Priority: D More... Chronic pain [G89.29] INVALID FOR*02/11/2014 Eustachian tube dysfunction [H69.80] INVALID FOR*05/07/2015 Serous otitis media [H65.90] INVALID FOR*05/07/2015 Controlled substance agreement signed [Z79.892] INVALID FOR*01/14/2017 HTN (hypertension) [I10] INVALID FOR* Priority: E More... Drug abuse [F19.10] INVALID FOR*01/14/2017 Marijuana dependence (HCC) [F12.20] INVALID FOR*01/14/2017 Near syncope [R55] INVALID FOR*01/14/2017 Priority: A More... KENRICK (acute kidney injury) (HCC) [N17.9] INVALID FOR*01/14/2017 Priority: B More... Chest pain [R07.9] INVALID FOR*01/14/2017 Priority: C More... Chronic left shoulder pain [M25.512, G89.29] INVALID FOR* Attention deficit hyperactivity disorder (ADHD)*INVALID FOR* Chronic pain [G89.29] INVALID FOR* Adjustment disorder with mixed anxiety and depr*INVALID FOR* Encounter Status:Closed by ALICE, PRODUSER on 09/04/18 PROGRESS Observed: 12/22/2017 Status: COMPLETED Source: [place] 7:42 PM [facility] REPOSITORY HNO ID: [id number] Author: Jay Ovalles Service: (none) Author Type: Physician Type: Progress Notes Filed: 12/23/2017 5:31 AM Note Text: ESTABLISHED PATIENT Sachin Andrews is a 62 year old male presenting for Follow Up. HISTORY OF PRESENT ILLNESS Chronic Stimulant Use Used for: ADHD Medication: Adderrall XR 20mg Pills per day: One pill per day Improves symptoms: Yes concentration is improved. Chronic Narcotic Pain Medication Medication: Tramadol Used for: Arthritis, Neuropathy Improves quality of life/pain: Yes Amount used per day: 1 tab at night Getting an MRI of the right knee. Looking into replacemed. Has fallen again during urination. He does not black out. Always at night after gabapentin and night time meds. No issues before nor after. Has checked BP during epsidoes in past and fine. No palpitations. Just lightheadedness. Hypertension Follow up Medication Adherence: no missed doses and took medications this morning Home monitoring: no Heart palpitations: no Chest pain: no Weakness, numbness, tingling: no Last 3 Encounter BP Readings: Date: BP: 12/22/2017 128/80 09/24/2017 142/88 03/31/2017 108/74 Hyperlipidemia Follow up Taking at night: yes Missed doses: no Taking aspirin: yes Hx CAD. Compliant with meds. No CP, SOB. [facility] Recent Labs: WBC 8.06 01/14/2017 Hemoglobin 14.9 01/14/2017 Hematocrit 44.9 01/14/2017 Platelet Count 282 01/14/2017 Sodium 139 01/14/2017 Potassium 4.9 01/14/2017 Creatinine 1.08 01/14/2017 BUN 14 01/14/2017 Glucose 98 01/14/2017 Calcium 9.6 01/14/2017 HBA1C, Claudine 5.8 01/14/2017 LDL Cholesterol 85 01/14/2017 HDL Cholesterol 35 01/14/2017 Cholesterol, Total 133 01/14/2017 Triglyceride 66 01/14/2017 AST 19 05/07/2015 ALT 12 05/07/2015 Alkaline Phosphatase 85 05/07/2015 TSH 2.290 05/11/2013 HISTORIES FAMILY HISTORY Problem Relation Age of Onset - Stroke Mother - CHF [OTHER] Mother - lung ca [OTHER] Father - Diabetes Brother PAST MEDICAL HISTORY Diagnosis Date - Abdominal pain, generalized - Acute [place] 07/2013 [facility] (Dr.Brian Sharp,cardiol) - Allergy - Chronic hepatitis C (HCC) - H/O exercise stress test 08/30/13 [facility], [place], [facility] - History of cardiac cath 07/2013 [facility] - Osteoarthritis - Other specified idiopathic peripheral neuropathy - Raynaud's syndrome - Rheumatoid arthritis(714.0) pt. states PAST SURGICAL HISTORY Procedure Laterality Date - COLONOSCOP W/ OR W/O [facility] SPEC 01/19/09 - PAST SURGICAL HISTORY OF right knee total revision - PAST SURGICAL HISTORY OF right foot fasca repair - PAST SURGICAL HISTORY OF reattachment left thumb - PAST SURGICAL HISTORY OF left small finger tendon and ligiment repair - PAST SURGICAL HISTORY OF left rotator cuff repair - REPAIR ING HERNIA,5+Y/O,REDUCIBL right Hernia repair, inguinal - REPAIR ROTATOR CUFF,ACUTE right 09/2006 Rotator cuff repair Social History Marital status: Spouse name: Years of education: Number of children: Social History Main Topics Smoking status: Former Smoker Packs/day: 0.00 Years: 0.00 Types: Cigarettes Quit date: 11/24/1975 Smokeless status: Never Used Comment: past use of medical marijuana Alcohol use: Yes Comment: rarely, 2 drinks per month Drug use: No Comment: history of occasional marijuana use Allergies: ALLERGIES Allergen Reactions - Environmental [Othe* tree pollen causes itchy eyes and sneezing Medications: aspirin, enteric coated (ASPIR-LOW) 81 mg EC tablet Take 1 tablet by mouth once daily. traMADol (ULTRAM) 50 mg tablet Take 1 tablet by mouth at bedtime as needed for Pain for up to 30 days. amphetamine-dextroamphetamine XR (ADDERALL XR) 20 mg 24 hr capsule Take 1 capsule by mouth once daily for 30 days. omeprazole (PRILOSEC) 20 mg capsule Take 20 mg by mouth once daily. Amitriptyline HCl 150 mg tablet Take 150 mg by mouth daily at bedtime. zolpidem (AMBIEN) 10 mg tab Take 0.5-1 tablets by mouth at bedtime as needed. BIPAP BIPAP 11/5 cmH2O, suitable mask, tubing, humidifier, filters. Lifetime supplies. Dx: 327.23 - Obstructive sleep apnea. Please fax compliance report to [phone] in 6-8 wks. zolpidem (AMBIEN) 10 mg tab Take 1 tablet by mouth at bedtime as needed. For sleep study night. topiramate (TOPAMAX) 25 mg tablet Tk 25 mg qHS x 1 week. Then, incr to 50 mg qHS x 1 week. Then, incr to 25 mg qAM and 50 mg qHS x1 week. Then, incr to 50 mg BID. loperamide (IMODIUM) 2 mg cap(s) Take 2 mg by mouth four times daily as needed. FOLIC ACID ORAL Take by mouth. losartan (COZAAR) 50 mg tablet Take 50 mg by mouth once daily. atorvastatin (LIPITOR) 80 mg tablet Take 80 mg by mouth once daily. MAGNESIUM ORAL Take 50 mg by mouth. multivitamin tablet Take 1 tablet by mouth once daily. VITAMIN B COMPLEX (B COMPLEX 1 ORAL) Take by mouth. GLUC/CHND/OM3/DHA/EPA/FISH/STR (GLUCOSAMINE CHONDROITIN PLUS ORAL) Take by mouth. fluticasone (FLONASE) 50 mcg/actuation nasal spray Use 1 [place] in each nostril daily at bedtime. before lying down. albuterol HFA (VENTOLIN HFA) 90 mcg/actuation inhaler Inhale 2 Puffs as instructed every 4 hours as needed for Wheezing/Shortness of Breath. LACTOBACILLUS ACIDOPHILUS (PROBIOTIC ORAL) Take by mouth once daily. gabapentin (NEURONTIN) 600 mg tablet Take 1 tablet by mouth three times daily. REVIEW OF SYSTEMS GENERAL: No weight loss, malaise or fevers. RESPIRATORY: Negative for cough, hemoptysis, wheezing or shortness of breath. CARDIOVASCULAR: Negative for chest pain, leg swelling or palpitations. All other systems reviewed and negative other than HPI. PHYSICAL EXAM BP 128/80 Pulse 73 Temp 36.7 ?C (98 ?F) (Oral) Resp 18 Ht 182.9 cm (6') Wt 96.8 kg (213 lb 8 oz) SpO2 98% BMI 28.96 kg/m2 General: Well developed, well nourished, in no acute distress. Head: Normocephalic, atraumatic. Neck: Supple. Eyes: Normal conjunctiva, no scleral icterus. Lungs: Clear to auscultation bilaterally, no rubs, no wheezing. Cardiac: Regular rate and rhythm. No murmurs, gallops, or rubs. Extremities: No edema. ASSESSMENT/PLAN: 1. Attention deficit disorder, unspecified hyperactivity presence - ICD9: 314.00, ICD10: F98.8 (primary diagnosis) - DEXTROAMPHETAMINE-AMPHETAMINE ER 20 MG 24HR CAPSULE,EXTEND RELEASE 2. Spondylosis of lumbar region without myelopathy or radiculopathy - ICD9: 721.3, ICD10: M47.816 - TRAMADOL 50 MG TABLET 3. Fall, subsequent encounter - ICD9: V58.89, E888.9, ICD10: W19.XXXD Patient to try taking night time meds right before bed. If continues to fall make FU 4. Essential hypertension - ICD9: 401.9, ICD10: I10 - good control - Recommended regular aerobic exercise. - Recommend home blood pressure monitoring, to bring results in on next visit 5. Coronary artery disease without angina pectoris, unspecified vessel or lesion type, unspecified whether [facility] or transplanted heart - ICD9: 414.00, ICD10: I25.10 Cont current meds Jay Ovalles MD OARRS website checked and validated. All prescriptions have been APPROPRIATELY filled. No suspicious activity was identified.- 12/23/2017 by Jay Ovalles MD PROGRESS Observed: 12/22/2017 Status: COMPLETED Source: [place] 7:35 PM [facility] REPOSITORY HNO ID: [id number] Author: Prateek Grigsby Service: (none) Author Type: (none) Type: Progress Notes Filed: 12/23/2017 5:30 AM Note Text: PROSTATE CANCER SCREENING DISCUSSION due on 2003 [facility] Observed: 12/22/2017 Status: COMPLETED Source: [place] 6:40 PM [facility] REPOSITORY Office Visit ([facility]) SACHIN ANDREWS ([id number]) 1955 M Date Time Provider Department 12/22/17 6:40 PM JAY OVALLES [facility] During your visit today, we recorded the following information about you: Temperature Pulse Respiration Blood pressure 98 degrees 73/minute 18/minute 128/80 Weight Height 96.8 kg 1.829 m Prateek Lebrian 12/22/2017 7:38 PM Signed Patient presents with: Follow Up Prateekjosé Grigsby 12/23/2017 5:30 AM Signed PROSTATE CANCER SCREENING DISCUSSION due on 2003 [facility] 12/22/2017 7:35 PM Signed [facility] OFF[facility] BUILDING - LAB TEST INFORMATION HOURS: 7 am to 6 pm Friday ? Friday, 7 am -12 pm on Friday. The lab is located in [facility] on the first floor. There is a registration window at the lab, available 7 am to 3 pm Friday ? Friday. If registration is unavailable at the lab, you may register at the patient registration office near the [facility]. ROUTINE ORDERS 60 days after they are entered. If you arrive for your lab testing after the orders have , you may be required to wait in the lab while they are reinstated. FUTURE ORDERS are lab tests to be completed on or after an ?expected? future date. These orders 60 days after the expected date. STANDING ORDERS are recurring orders with an expiration date. The interval will indicate how often the test should be completed. FASTING means nothing to eat or drink (except water) 10-12 hours before your blood is drawn. CT / MRI / IVP If you have lab tests ordered for one of these radiology exams, please complete the blood work at least one day prior to the scheduled exam. PRESCRIPTION REFILL REQUESTS Request prescription refills through your [facility] account or contact your Pharmacy. Jay Ovalles MD 12/23/2017 5:31 AM Addendum ESTABLISHED PATIENT Sachin Andrews is a 62 year old male presenting for Follow Up. HISTORY OF PRESENT ILLNESS Chronic Stimulant Use Used for: ADHD Medication: Adderrall XR 20mg Pills per day: One pill per day Improves symptoms: Yes concentration is improved. Chronic Narcotic Pain Medication Medication: Tramadol Used for: Arthritis, Neuropathy Improves quality of life/pain: Yes Amount used per day: 1 tab at night Getting an MRI of the right knee. Looking into replacemed. Has fallen again during urination. He does not black out. Always at night after gabapentin and night time meds. No issues before nor after. Has checked BP during epsidoes in past and fine. No palpitations. Just lightheadedness. Hypertension Follow up Medication Adherence: no missed doses and took medications this morning Home monitoring: no Heart palpitations: no Chest pain: no Weakness, numbness, tingling: no Last 3 Encounter BP Readings: Date: BP: 12/22/2017 128/80 09/24/2017 142/88 03/31/2017 108/74 Hyperlipidemia Follow up Taking at night: yes Missed doses: no Taking aspirin: yes Hx CAD. Compliant with meds. No CP, SOB. [facility] Recent Labs: WBC 8.06 01/14/2017 Hemoglobin 14.9 01/14/2017 Hematocrit 44.9 01/14/2017 Platelet Count 282 01/14/2017 Sodium 139 01/14/2017 Potassium 4.9 01/14/2017 Creatinine 1.08 01/14/2017 BUN 14 01/14/2017 Glucose 98 01/14/2017 Calcium 9.6 01/14/2017 HBA1C, Claudine 5.8 01/14/2017 LDL Cholesterol 85 01/14/2017 HDL Cholesterol 35 01/14/2017 Cholesterol, Total 133 01/14/2017 Triglyceride 66 01/14/2017 AST 19 05/07/2015 ALT 12 05/07/2015 Alkaline Phosphatase 85 05/07/2015 TSH 2.290 05/11/2013 HISTORIES FAMILY HISTORY Problem Relation Age of Onset - Stroke Mother - CHF [OTHER] Mother - lung ca [OTHER] Father - Diabetes Brother PAST MEDICAL HISTORY Diagnosis Date - Abdominal pain, generalized - Acute [place] 07/2013 [facility] (Dr.Brian Sharp,cardiol) - Allergy - Chronic hepatitis C (HCC) - H/O exercise stress test 08/30/13 [facility], [place], [facility] - History of cardiac cath 07/2013 [facility] - Osteoarthritis - Other specified idiopathic peripheral neuropathy - Raynaud's syndrome - Rheumatoid arthritis(714.0) pt. states PAST SURGICAL HISTORY Procedure Laterality Date - [facility] - PAST SURGICAL HISTORY OF right knee total revision - PAST SURGICAL HISTORY OF right foot fasca repair - PAST SURGICAL HISTORY OF reattachment left thumb - PAST SURGICAL HISTORY OF left small finger tendon and ligiment repair - PAST SURGICAL HISTORY OF left rotator cuff repair - REPAIR ING HERNIA,5+Y/O,REDUCIBL right Hernia repair, inguinal - REPAIR ROTATOR CUFF,ACUTE right 09/2006 Rotator cuff repair Social History Marital status: Spouse name: Years of education: Number of children: Social History Main Topics Smoking status: Former Smoker Packs/day: 0.00 Years: 0.00 Types: Cigarettes Quit date: 11/24/1975 Smokeless status: Never Used Comment: past use of medical marijuana Alcohol use: Yes Comment: rarely, 2 drinks per month Drug use: No Comment: history of occasional marijuana use Allergies: ALLERGIES Allergen Reactions - Environmental [Othe* tree pollen causes itchy eyes and sneezing Medications: aspirin, enteric coated (ASPIR-LOW) 81 mg EC tablet Take 1 tablet by mouth once daily. traMADol (ULTRAM) 50 mg tablet Take 1 tablet by mouth at bedtime as needed for Pain for up to 30 days. amphetamine-dextroamphetamine XR (ADDERALL XR) 20 mg 24 hr capsule Take 1 capsule by mouth once daily for 30 days. omeprazole (PRILOSEC) 20 mg capsule Take 20 mg by mouth once daily. Amitriptyline HCl 150 mg tablet Take 150 mg by mouth daily at bedtime. zolpidem (AMBIEN) 10 mg tab Take 0.5-1 tablets by mouth at bedtime as needed. BIPAP BIPAP 11/5 cmH2O, suitable mask, tubing, humidifier, filters. Lifetime supplies. Dx: 327.23 - Obstructive sleep apnea. Please fax compliance report to [phone] in 6-8 wks. zolpidem (AMBIEN) 10 mg tab Take 1 tablet by mouth at bedtime as needed. For sleep study night. topiramate (TOPAMAX) 25 mg tablet Tk 25 mg qHS x 1 week. Then, incr to 50 mg qHS x 1 week. Then, incr to 25 mg qAM and 50 mg qHS x1 week. Then, incr to 50 mg BID. loperamide (IMODIUM) 2 mg cap(s) Take 2 mg by mouth four times daily as needed. FOLIC ACID ORAL Take by mouth. losartan (COZAAR) 50 mg tablet Take 50 mg by mouth once daily. atorvastatin (LIPITOR) 80 mg tablet Take 80 mg by mouth once daily. MAGNESIUM ORAL Take 50 mg by mouth. multivitamin tablet Take 1 tablet by mouth once daily. VITAMIN B COMPLEX (B COMPLEX 1 ORAL) Take by mouth. GLUC/CHND/OM3/DHA/EPA/FISH/STR (GLUCOSAMINE CHONDROITIN PLUS ORAL) Take by mouth. fluticasone (FLONASE) 50 mcg/actuation nasal spray Use 1 [place] in each nostril daily at bedtime. before lying down. albuterol HFA (VENTOLIN HFA) 90 mcg/actuation inhaler Inhale 2 Puffs as instructed every 4 hours as needed for Wheezing/Shortness of Breath. LACTOBACILLUS ACIDOPHILUS (PROBIOTIC ORAL) Take by mouth once daily. gabapentin (NEURONTIN) 600 mg tablet Take 1 tablet by mouth three times daily. REVIEW OF SYSTEMS GENERAL: No weight loss, malaise or fevers. RESPIRATORY: Negative for cough, hemoptysis, wheezing or shortness of breath. CARDIOVASCULAR: Negative for chest pain, leg swelling or palpitations. All other systems reviewed and negative other than HPI. PHYSICAL EXAM BP 128/80 Pulse 73 Temp 36.7 ?C (98 ?F) (Oral) Resp 18 Ht 182.9 cm (6') Wt 96.8 kg (213 lb 8 oz) SpO2 98% BMI 28.96 kg/m2 General: Well developed, well nourished, in no acute distress. Head: Normocephalic, atraumatic. Neck: Supple. Eyes: Normal conjunctiva, no scleral icterus. Lungs: Clear to auscultation bilaterally, no rubs, no wheezing. Cardiac: Regular rate and rhythm. No murmurs, gallops, or rubs. Extremities: No edema. ASSESSMENT/PLAN: 1. Attention deficit disorder, unspecified hyperactivity presence - ICD9: 314.00, ICD10: F98.8 (primary diagnosis) - DEXTROAMPHETAMINE-AMPHETAMINE ER 20 MG 24HR CAPSULE,EXTEND RELEASE 2. Spondylosis of lumbar region without myelopathy or radiculopathy - ICD9: 721.3, ICD10: M47.816 - TRAMADOL 50 MG TABLET 3. Fall, subsequent encounter - ICD9: V58.89, E888.9, ICD10: W19.XXXD Patient to try taking night time meds right before bed. If continues to fall make FU 4. Essential hypertension - ICD9: 401.9, ICD10: I10 - good control - Recommended regular aerobic exercise. - Recommend home blood pressure monitoring, to bring results in on next visit 5. Coronary artery disease without angina pectoris, unspecified vessel or lesion type, unspecified whether [place] or transplanted heart - ICD9: 414.00, ICD10: I25.10 Cont current meds Jay Ovalles MD OARRS website checked and validated. All prescriptions have been APPROPRIATELY filled. No suspicious activity was identified.- 12/23/2017 by Jay Ovalles MD Referring Provider: JAY OVALLES [[id number]] Allergies As of Date: 12/22/2017 Noted Allergy Reaction environmental [Other] 02/10/2008 Comments: tree pollen causes itchy eyes and sneezing Date Reviewed: 12/22/2017 Reviewed by: Prateek Grigsby - Fully Assessed Reason for Visit: Follow Up [171] Primary Visit Diagnosis:Attention deficit disorder, unspecified hyperactivity presence [F98.8] Other Visit Diagnoses:Spondylosis of lumbar region without myelopathy or radiculopathy [M47.816] Fall, subsequent encounter [W19.XXXD] Essential hypertension [I10] Coronary artery disease without angina pectoris, unspecified vessel or lesion type, unspecified whether [facility] or transplanted heart [I25.10] Order(s):[START ON 12/27/2017] amphetamine-dextroamphetamine XR (ADDERALL XR) 20 mg 24 hr capsuleTake 1 capsule by mouth once daily for 30 days. Earliest Fill Date: 12/27/17Disp: 30 capsuleRfl: 0 [START ON 12/27/2017] traMADol (ULTRAM) 50 mg tabletTake 1 tablet by mouth at bedtime as needed for Pain for up to 30 days.Disp: 30 tabletRfl: 0 Prescriptions as of 12/22/2017 Sig: DEXTROAMPHETAMINE-AMPHETAMINE* Take 1 capsule by mouth once * TRAMADOL 50 MG TABLET Take 1 tablet by mouth at bed* ASPIRIN 81 MG TABLET,DELAYED * Take 1 tablet by mouth once d* OMEPRAZOLE 20 MG CAPSULE,ZANE* Take 20 mg by mouth once edgardo* BIPAP BIPAP 11/5 cmH2O, suitable m* LOPERAMIDE 2 MG CAPSULE Take 2 mg by mouth four times* FOLIC ACID ORAL Take by mouth. LOSARTAN 50 MG TABLET Take 50 mg by mouth once edgardo* ATORVASTATIN 80 MG TABLET Take 80 mg by mouth once edgardo* MAGNESIUM ORAL Take 50 mg by mouth. MULTIVITAMIN TABLET Take 1 tablet by mouth once d* B COMPLEX 1 ORAL Take by mouth. GLUCOSAMINE CHONDROITIN PLUS * Take by mouth. FLUTICASONE 50 MCG/ACTUATION * Use 1 [place] in each nostril d* ALBUTEROL SULFATE HFA 90 MCG/* Inhale 2 Puffs as instructed * PROBIOTIC ORAL Take by mouth once daily. GABAPENTIN 600 MG TABLET Take 1 tablet by mouth three * Problem List As Of Date 12/22/2017 Noted Resolved Peripheral neuropathy (HCC) [G62.9] INVALID FOR* Priority: F More... Chronic rhinitis [J31.0] INVALID FOR*05/07/2015 DEPRESSIVE DISORDER NEC [F32.9] INVALID FOR* Persistent disorder of initiating or maintainin*INVALID FOR*05/07/2015 Chronic hepatitis C without mention of hepatic *INVALID FOR*11/19/2016 Loss of weight [R63.4] INVALID FOR*05/07/2015 CHRONIC PAIN NEC [G89.29] INVALID FOR*05/07/2015 More... ELAYNE (obstructive sleep apnea) [G47.33] INVALID FOR* More... 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 Small fiber neuropathy [G62.9] INVALID FOR*05/07/2015 Lumbar pain [M54.5] INVALID FOR*05/07/2015 CAD (coronary artery disease) [I25.10] INVALID FOR* Priority: D More... Chronic pain [G89.29] INVALID FOR*02/11/2014 Eustachian tube dysfunction [H69.80] INVALID FOR*05/07/2015 Serous otitis media [H65.90] INVALID FOR*05/07/2015 Controlled substance agreement signed [Z79.899] INVALID FOR*01/14/2017 HTN (hypertension) [I10] INVALID FOR* Priority: E More... Drug abuse [F19.10] INVALID FOR*01/14/2017 Marijuana dependence (HCC) [F12.20] INVALID FOR*01/14/2017 Near syncope [R55] INVALID FOR*01/14/2017 Priority: A More... KENRICK (acute kidney injury) (HCC) [N17.9] INVALID FOR*01/14/2017 Priority: B More... Chest pain [R07.9] INVALID FOR*01/14/2017 Priority: C More... Chronic left shoulder pain [M25.512, G89.29] INVALID FOR* Attention deficit hyperactivity disorder (ADHD)*INVALID FOR* Chronic pain [G89.29] INVALID FOR* Adjustment disorder with mixed anxiety and depr*INVALID FOR* Other instructions from your clinician: [facility] - LAB TEST INFORMATION HOURS: 7 am to 6 pm Friday ? Friday, 7 am -12 pm on Friday. The lab is located in [facility] on the first floor. There is a registration window at the lab, available 7 am to 3 pm Friday ? Friday. If registration is unavailable at the lab, you may register at the patient registration office near the [facility]. ROUTINE ORDERS 60 days after they are entered. If you arrive for your lab testing after the orders have , you may be required to wait in the lab while they are reinstated. FUTURE ORDERS are lab tests to be completed on or after an ?expected? future date. These orders 60 days after the expected date. STANDING ORDERS are recurring orders with an expiration date. The interval will indicate how often the test should be completed. FASTING means nothing to eat or drink (except water) 10- 12 hours before your blood is drawn. CT / MRI / IVP If you have lab tests ordered for one of these radiology exams, please complete the blood work at least one day prior to the scheduled exam. PRESCRIPTION REFILL REQUESTS Request prescription refills through your [facility] account or contact your Pharmacy. Visit Notes: >> Prateek Lequay Mon Dec 22, 2017 7:35 PM Status: Signed Patient presents with: Follow Up Prescriptions ordered this encounter Disp Refills Start End DEXTROAMPHETAMINE-AMPHETAMINE ER 20 * 30 c* 0 12/27/2017 01/26/2018 Class: Print RX Route: ORAL Sig: Take 1 capsule by mouth once daily for 30 days. Earliest Fill Date: 12/27/17 TRAMADOL 50 MG TABLET 30 t* 0 12/27/2017 01/26/2018 Class: Print RX Route: ORAL Sig: Take 1 tablet by mouth at bedtime as needed for Pain for up to 30 days. Medications Discontinued During This Encounter zolpidem (AMBIEN) 10 mg tab 30 t* 0 03/31/2017 12/22/2017 Class: Print RX Route: ORAL Sig: Take 0.5-1 tablets by mouth at bedtime as needed. Disc: Reason for discontinue is not on file. zolpidem (AMBIEN) 10 mg tab 1 ta* 0 03/04/2017 12/22/2017 Class: Print RX Route: ORAL Sig: Take 1 tablet by mouth at bedtime as needed. For sleep study night. Disc: Reason for discontinue is not on file. Amitriptyline HCl 150 mg tablet 12/22/2017 Class: Historical Med Route: ORAL Sig: Take 150 mg by mouth daily at bedtime. Disc: Reason for discontinue is not on file. topiramate (TOPAMAX) 25 mg tablet 120 * 2 02/03/2017 12/22/2017 Sig: Tk 25 mg qHS x 1 week. Then, incr to 50 mg qHS x 1 week. Then, incr to 25 mg qAM and 50 mg qHS x1 week. Then, incr to 50 mg BID. Disc: Reason for discontinue is not on file. amphetamine-dextroamphetamine XR (AD* 30 c* 0 11/26/2017 12/22/2017 Class: Print RX Route: ORAL Sig: Take 1 capsule by mouth once daily for 30 days. Disc: Reason for discontinue is not on file. traMADol (ULTRAM) 50 mg tablet 30 t* 0 11/26/2017 12/22/2017 Class: Call Rx Route: ORAL Sig: Take 1 tablet by mouth at bedtime as needed for Pain for up to 30 days. Disc: Reason for discontinue is not on file. Disposition: Return in about 3 months (around 03/22/2018), or Labs from [place]. Follow-up and Disposition History Recorded Encounter Status:Closed by JAY OVALLES MD on 12/23/17 CNCO Observed: 12/22/2017 Status: COMPLETED Source: [place] 12:00 AM [facility] RE[facility] Letter Text Jay Ovalles MD [facility] [address] [place] [address] Sachinjennifer Sequeiragerty December 22, 2017 Sachin Radha Andrews [address] [place] [address] Dear Mr. Andrews, It was noted that you did not keep your scheduled appointment on 12/22/16. It is important to contact the office in advance if you are unable to keep your appointment so that it is available for other patients. Your medical care is important to us. Please call our office to reschedule an appointment. Sincerely, Jay Ovalles MD OBSOLETE Observed: 12/01/2017 Status: COMPLETED Source: [place] 12:00 AM [facility] REPOS[facility] Refill ([facility]) SACHIN ANDREWS ([id number]) 1955 M Date Time Provider Department 12/01/17 JAY OVALLES [facility] During your visit today, we recorded the following information about you: Jay Ovalles MD 12/01/2017 6:00 PM Signed Please let patient know I was doing some chart checks and noticed he wasn't on an aspirin. With his medical history he should be taking a baby aspirin which is very affordable OTC. If he is already taking a baby aspirin he should let me know. Thanks, MD Prateek Alicea 12/03/2017 4:03 PM Signed Patient stated he is taking baby aspirin OTC, but he does need a refill. Last appointment: 09/24/17 Next appointment: 12/22/17 Pharmacy verified in [facility]. Patient has been identified by name and date of : Yes Patient aware RX will be sent to pharmacy. No need to notify patient. Patient requests for refill(s): Pending Prescriptions Disp Refills ASPIRIN 81 MG TABLET,DELAYED RELEASE Sig: Take 1 tablet by mouth once daily. MARTITA: No Signed Prescriptions Disp Refills aspirin, enteric coated (ASPIR-LOW) 81 mg EC tablet Sig: Take 1 tablet by mouth once daily. Authorizing Provider: JAY OVALLES Please advise. Prateek Grigsby [facility] Allergies As of Date: 12/01/2017 Noted Allergy Reaction environmental [Other] 02/10/2008 Comments: tree pollen causes itchy eyes and sneezing Date Reviewed: 09/24/2017 Reviewed by: Rosamaria Kelsey [facility] - Fully Assessed Reason for Visit: Refill Request [94] Order(s):aspirin, enteric coated (ASPIR-LOW) 81 mg EC tabletTake 1 tablet by mouth once daily.Disp: 90 tabletRfl: 3 Prescriptions as of 12/01/2017 Sig: ASPIRIN 81 MG TABLET,DELAYED * Take 1 tablet by mouth once d* TRAMADOL 50 MG TABLET Take 1 tablet by mouth at bed* DEXTROAMPHETAMINE-AMPHETAMINE* Take 1 capsule by mouth once * OMEPRAZOLE 20 MG CAPSULE,ZANE* Take 20 mg by mouth once edgardo* X AMITRIPTYLINE 150 MG TABLET Take 150 mg by mouth daily at* X ZOLPIDEM 10 MG TABLET Take 0.5-1 tablets by mouth a* BIPAP BIPAP 11/5 cmH2O, suitable m* X ZOLPIDEM 10 MG TABLET Take 1 tablet by mouth at bed* X TOPIRAMATE 25 MG TABLET Tk 25 mg qHS x 1 week. Then,* LOPERAMIDE 2 MG CAPSULE Take 2 mg by mouth four times* FOLIC ACID ORAL Take by mouth. LOSARTAN 50 MG TABLET Take 50 mg by mouth once edgardo* ATORVASTATIN 80 MG TABLET Take 80 mg by mouth once edgardo* MAGNESIUM ORAL Take 50 mg by mouth. MULTIVITAMIN TABLET Take 1 tablet by mouth once d* B COMPLEX 1 ORAL Take by mouth. GLUCOSAMINE CHONDROITIN PLUS * Take by mouth. FLUTICASONE 50 MCG/ACTUATION * Use 1 [place] in each nostril d* ALBUTEROL SULFATE HFA 90 MCG/* Inhale 2 Puffs as instructed * PROBIOTIC ORAL Take by mouth once daily. GABAPENTIN 600 MG TABLET Take 1 tablet by mouth three * Problem List As Of Date 12/01/2017 Noted Resolved Peripheral neuropathy (HCC) [G62.9] INVALID FOR* Priority: F More... Chronic rhinitis [J31.0] INVALID FOR*05/07/2015 DEPRESSIVE DISORDER NEC [F32.9] INVALID FOR* Persistent disorder of initiating or maintainin*INVALID FOR*05/07/2015 Chronic hepatitis C without mention of hepatic *INVALID FOR*11/19/2016 Loss of weight [R63.4] INVALID FOR*05/07/2015 CHRONIC PAIN NEC [G89.29] INVALID FOR*05/07/2015 More... ELAYNE (obstructive sleep apnea) [G47.33] INVALID FOR* More... 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 Small fiber neuropathy [G62.9] INVALID FOR*05/07/2015 Lumbar pain [M54.5] INVALID FOR*05/07/2015 CAD (coronary artery disease) [I25.10] INVALID FOR* Priority: D More... Chronic pain [G89.29] INVALID FOR*02/11/2014 Eustachian tube dysfunction [H69.80] INVALID FOR*05/07/2015 Serous otitis media [H65.90] INVALID FOR*05/07/2015 Controlled substance agreement signed [Z79.899] INVALID FOR*01/14/2017 HTN (hypertension) [I10] INVALID FOR* Priority: E More... Drug abuse [F19.10] INVALID FOR*01/14/2017 Marijuana dependence (HCC) [F12.20] INVALID FOR*01/14/2017 Near syncope [R55] INVALID FOR*01/14/2017 Priority: A More... KENRICK (acute kidney injury) (HCC) [N17.9] INVALID FOR*01/14/2017 Priority: B More... Chest pain [R07.9] INVALID FOR*01/14/2017 Priority: C More... Chronic left shoulder pain [M25.512, G89.29] INVALID FOR* Attention deficit hyperactivity disorder (ADHD)*INVALID FOR* Chronic pain [G89.29] INVALID FOR* Adjustment disorder with mixed anxiety and depr*INVALID FOR* Prescriptions ordered this encounter Disp Refills Start End ASPIRIN 81 MG TABLET,DELAYED RELEASE 12/01/2017 12/03/2017 Class: Med Update Route: ORAL Sig: Take 1 tablet by mouth once daily. ASPIRIN 81 MG TABLET,DELAYED RELEASE 90 t* 3 12/03/2017 Route: ORAL Sig: Take 1 tablet by mouth once daily. Medications Discontinued During This Encounter aspirin, enteric coated (ASPIR-LOW) * 12/01/2017 12/03/2017 Class: Med Update Route: ORAL Sig: Take 1 tablet by mouth once daily. Disc: Reason for discontinue is not on file. Encounter Status:Closed by AJY OVALLES MD on 12/22/17 OBSOLETE Observed: 11/26/2017 Status: COMPLETED Source: [place] 12:00 AM [facility] Refill ([facility]) SACHIN ANDREWS ([id number]) 1955 M Date Time Provider Department 11/26/17 JAY OVALLES [facility] During your visit today, we recorded the following information about you: Caitlin Dorsey 11/26/2017 2:24 PM Signed Patient has been identified by name and date of : Yes RX INSTRUCTIONS: Per patient he requested Adderall XR 30 mg and not salt combo. Print and leave at the [facility] lead front desk agent. Call patient when complete. Controlled medication - must be called in. Caitlin Neff Psr Leni Arias Ma 11/26/2017 2:51 PM Signed Patient has been identified by name and date of : Yes RX INSTRUCTIONS: Print and leave at the lead front desk agent. Call patient when complete. Patient phones requesting refills as follows: Please verify quantity and correct dosage instructions before approval. Pending Prescriptions Disp Refills TRAMADOL 50 MG TABLET 30 tablet 0 Sig: Take 1 tablet by mouth at bedtime as needed for Pain for up to 30 days. SELENA Class: C-IV MARTITA: No DEXTROAMPHETAMINE-AMPHETAMINE ER 30 MG 24HR CAPSULE,EXTEND RELEASE 120 capsule 0 Sig: Take by mouth.Earliest Fill Date: 11/26/17 SELENA Class: C-II MARTITA: No Please review and advise. Leni Baeza PA-C 11/26/2017 3:10 PM Signed Please call in tramadol. Adderall printed, please process. OARRS website checked and validated. All prescriptions have been APPROPRIATELY filled. No suspicious activity was identified.- 11/26/2017 by TERESA Albert Kathryn E Freeland, PA-C Jacquelyn Baon, MA 11/26/2017 3:54 PM Signed .RX called into Pharmacy, left on Voicemail. 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] Other Visit Diagnosis:Attention deficit disorder, unspecified hyperactivity presence [F98.8] Order(s):traMADol (ULTRAM) 50 mg tabletTake 1 tablet by mouth at bedtime as needed for Pain for up to 30 days.Disp: 30 tabletRfl: 0 amphetamine-dextroamphetamine XR (ADDERALL XR) 20 mg 24 hr capsuleTake 1 capsule by mouth once daily for 30 days.Disp: 30 capsuleRfl: 0 Prescriptions as of 11/26/2017 Sig: TRAMADOL 50 MG TABLET Take 1 tablet by mouth at bed* DEXTROAMPHETAMINE-AMPHETAMINE* Take 1 capsule by mouth once * OMEPRAZOLE 20 MG CAPSULE,ZANE* Take 20 mg by mouth once edgardo* AMITRIPTYLINE 150 MG TABLET Take 150 mg by mouth daily at* ZOLPIDEM 10 MG TABLET Take 0.5-1 tablets by mouth a* BIPAP BIPAP 11/5 cmH2O, suitable m* ZOLPIDEM 10 MG TABLET Take 1 tablet by mouth at bed* TOPIRAMATE 25 MG TABLET Tk 25 mg qHS x 1 week. Then,* LOPERAMIDE 2 MG CAPSULE Take 2 mg by mouth four times* FOLIC ACID ORAL Take by mouth. LOSARTAN 50 MG TABLET Take 50 mg by mouth once edgardo* ATORVASTATIN 80 MG TABLET Take 80 mg by mouth once edgardo* MAGNESIUM ORAL Take 50 mg by mouth. MULTIVITAMIN TABLET Take 1 tablet by mouth once d* B COMPLEX 1 ORAL Take by mouth. GLUCOSAMINE CHONDROITIN PLUS * Take by mouth. FLUTICASONE 50 MCG/ACTUATION * Use 1 [place] in each nostril d* ALBUTEROL SULFATE HFA 90 MCG/* Inhale 2 Puffs as instructed * PROBIOTIC ORAL Take by mouth once daily. GABAPENTIN 600 MG TABLET Take 1 tablet by mouth three * Problem List As Of Date 11/26/2017 Noted Resolved Peripheral neuropathy (HCC) [G62.9] INVALID FOR* Priority: F More... Chronic rhinitis [J31.0] INVALID FOR*05/07/2015 DEPRESSIVE DISORDER NEC [F32.9] INVALID FOR* Persistent disorder of initiating or maintainin*INVALID FOR*05/07/2015 Chronic hepatitis C without mention of hepatic *INVALID FOR*11/19/2016 Loss of weight [R63.4] INVALID FOR*05/07/2015 CHRONIC PAIN NEC [G89.29] INVALID FOR*05/07/2015 More... ELAYNE (obstructive sleep apnea) [G47.33] INVALID FOR* More... 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 Small fiber neuropathy [G62.9] INVALID FOR*05/07/2015 Lumbar pain [M54.5] INVALID FOR*05/07/2015 CAD (coronary artery disease) [I25.10] INVALID FOR* Priority: D More... Chronic pain [G89.29] INVALID FOR*02/11/2014 Eustachian tube dysfunction [H69.80] INVALID FOR*05/07/2015 Serous otitis media [H65.90] INVALID FOR*05/07/2015 Controlled substance agreement signed [Z79.899] INVALID FOR*01/14/2017 HTN (hypertension) [I10] INVALID FOR* Priority: E More... Drug abuse [F19.10] INVALID FOR*01/14/2017 Marijuana dependence (HCC) [F12.20] INVALID FOR*01/14/2017 Near syncope [R55] INVALID FOR*01/14/2017 Priority: A More... KENRICK (acute kidney injury) (HCC) [N17.9] INVALID FOR*01/14/2017 Priority: B More... Chest pain [R07.9] INVALID FOR*01/14/2017 Priority: C More... Chronic left shoulder pain [M25.512, G89.29] INVALID FOR* Attention deficit hyperactivity disorder (ADHD)*INVALID FOR* Chronic pain [G89.29] INVALID FOR* Adjustment disorder with mixed anxiety and depr*INVALID FOR* Prescriptions ordered this encounter Disp Refills Start End TRAMADOL 50 MG TABLET 30 t* 0 11/26/2017 12/26/2017 Class: Call Rx Route: ORAL Sig: Take 1 tablet by mouth at bedtime as needed for Pain for up to 30 days. DEXTROAMPHETAMINE-AMPHETAMINE ER 20 * 30 c* 0 11/26/2017 12/26/2017 Class: Print RX Route: ORAL Sig: Take 1 capsule by mouth once daily for 30 days. Medications Discontinued During This Encounter amphetamine-dextroamphetamine XR (AD* 30 c* 0 06/27/2017 11/26/2017 Class: Print RX Route: ORAL Sig: Take 1 capsule by mouth once daily for 30 days. Disc: Reason for discontinue is not on file. amphetamine-dextroamphetamine XR 10 * 56 c* 0 06/15/2014 11/26/2017 Class: Print RX Route: ORAL Sig: Take 1 capsule by mouth q 12 HR for 28 days. Disc: Reason for discontinue is not on file. Cosign accepted by ANDREA SOMERS MD[[id number]] on 09/23/2014 8:12 AM amphetamine-dextroamphetamine XR (AD* 60 c* 0 06/26/2011 11/26/2017 Class: Print RX Route: ORAL Sig: Take 1 capsule by mouth twice daily for 30 days. Next Rx not due until 07/26/11. Disc: Reason for discontinue is not on file. Cosign accepted by ANDREA SOMERS MD[[id number]] on 06/25/2011 5:32 PM traMADol (ULTRAM) 50 mg tablet 30 t* 0 10/21/2017 11/26/2017 Class: Call Rx Route: ORAL Sig: Take 1 tablet by mouth at bedtime as needed for Pain for up to 30 days. Disc: Reason for discontinue is not on file. amphetamine-dextroamphetamine XR (AD* 30 c* 0 10/21/2017 11/26/2017 Class: Print RX Route: ORAL Sig: Take 1 capsule by mouth once daily for 30 days. Disc: Reason for discontinue is not on file. Encounter Status:Closed by YVES MICHAEL MA on 11/26/17 ALLERGIES ALLERGIES DATE TYPE / CODE NAME / CODE REACTION SEVERITY SOURCE 10/22/2018 Drug No Known Unknown [place] Allergy/[id number](S Allergies/F [facility] NOMED CT) [id number]([facility] XNORM) Repository 02/10/2008 Miscellaneous OTHER [facility] Allergy/[id number]([facility] NOMED CT) Repository ENCOUNTERS ENCOUNTERS ADMIT/DISCHARGE ACCOUNT NUMBER ADMITTING ENCOUNTER LOCATION SOURCE CLASS 10/22/2018/10/24/20 [id number] [place], Ambulatory [address] ding:[id number] Repository : [id number]: 1 10/12/2018/10/14/20 [id number] [place], Inpatient [address] ding:[id number] Repository : [id number]: 1 10/08/2018/10/08/20 [id number] Ambulatory [address] Repository 09/29/2018 [id number] Ambulatory BMSBuilding: [facility] Repository 06/19/2018/06/22/20 [id number] Ambulatory [address] Repository 03/31/2018/03/31/20 [id number] Ambulatory BBuilding:RA Bowman [address] [place] [address] Repository 03/20/2018/03/23/20 [id number] Ambulatory [address] Repository 12/22/2017/12/22/[id number] Repository PAYERS PAYERS ENCOUNTER GUARANTOR PAYER SUBSCRIBER SOURCE 10/22/2018 SACHIN Garcia Primary MINO [place] [id number] WATER Insurance:CIGNAPolicy KEANUGERTYDOB: [place], [place] Number: [id number] [address]Jyb: ([phone]) [id number] Repository [phone] () Date:[id number] [place] [address]GZ: 10/22/2018 Secondary SACHIN D [place] Insurance:[facility] Number: [id number] Hospital [id number] Repository Date:[id number] SERVICE [id number] [place], [place] [address]ZF: [phone] 10/22/2018 Tertiary NOT GIVENUNK [place] Insurance:SELF PAY [facility] Number: Effective Repository Date:2018-10-22 10/12/2018 SACHIN Radha Primary MINO [place] [id number] WATER Insurance:CIGNAPolicy KEANUGERTYDOB: [place], [place] Number: [id number] Hospital [address]Hcl: 330 [id number] Repository [phone] () Date:[id number]PFVHCJUMJRA, [place] [address]MF: 10/12/2018 Secondary SACHIN D [place] Insurance:[facility] Number: [id number] Hospital [id number] Repository Date:[id number] SERVICE [id number] [place], [place] [address]UT: [phone] 10/12/2018 Tertiary NOT GIVENUNK [place] Insurance:SELF PAY [facility] Number: Effective Repository Date:2018-09-02 09/29/2018 SACHIN Radha Primary MINO [place] [id number] WATER Insurance:CIGNAPolicy HAGGERTYDOB: [place], [place] Number: [id number] [facility] [address]Pcp: [phone]) [id number] Repository [phone] () Date:[id number] BAILEY [address]TD: 09/29/2018 Secondary SACHIN Chow Insurance[facility] Number: [id number] Hospital [id number] Repository Date:[id number] SERVICE [id number] [place], [place] [address]CO: [phone] 09/29/2018 Tertiary NOT GIVENUNK [place] Insurance:SELF PAY [facility] Number: Effective Repository Date:2018-09-29 03/31/2018 SACHIN Garcia Primary [facility]: [facility] MANAGEMENT [id number] Repository [facility] OPAL [facility]ENTERFIDEelizabet[facility] hospitalmarc Number: [place] [address]Zgu: [id number] [place] [address]Jgf: Date:2018-02-11 ()Tel: [phone] () () Name:[id number] [place] 000-0000 (WP) [place], [place] [address]CA:
== END 2018-10-24 16:56 ==
LOC: ED 18:01 → MS2 20:28
PROVIDERS: Admitting Provider Orthopaedic Surgery; Emergency Provider Emergency Medicine; Visit Provider Orthopaedic Surgery
DX: G89.18 Other acute postprocedural pain (principal); Z96.651 Presence of right artificial knee joint; Z87.891 Personal history of nicotine dependence; Z79.899 Other long term (current) drug therapy; Z79.82 Long term (current) use of aspirin; I25.2 Old myocardial infarction; G62.9 Polyneuropathy, unspecified; M79.89 Other specified soft tissue disorders
CPT/HCPCS: 73560; 80048; 85025; 85652; 93971; 96374; 96375; 96376; 97110; 97162; 97165; 99218; 99282; J7030; A4216; G0378; J2405